=== PATIENT | male | born 1945 | race Caucasian/White ===

== ENCOUNTER → 2017-03-15 | Outpatient (CLI) | payer MEDICARE, BC ==
[2017-03-15 09:15] LABS: Basophils % (A) 1 %; CH 29.3; CHCM 34.1; Eosinophils # (A) 0.1 k/uL (0-0.7); Eosinophils % (A) 3 %; HCT 51.6 % (39.0-53.0); HDW 2.61; HGB 17.4 gm/dL (13.0-17.5); Luc % (Auto) 2; Lymphocytes # (A) 1.5 k/uL (1.0-4.8); Lymphocytes % (A) 33 %; MCH 29.1 pg (25.0-35.0); MCHC 33.8 g/dL (31.0-37.0); MCV 86.1 fL (80.0-100.0); Mean Platelet Volume 6.8; Monocytes # (A) 0.3 k/uL (0-1.0); Monocytes % (A) 7 %; Neutrophils # (A) 2.4 k/uL (1.3-7.7); Neutrophils % (A) 54 %; RBC 5.99 m/uL (4.30-5.90); RDW 12.6 % (11.5-15.5); WBC 4.5 k/uL (3.8-10.6)
[2017-03-15 09:40] LABS: ALT 37 U/L (21-72); AST 23 U/L (17-59); Alkaline Phosphatase 64 U/L (38-126); Anion Gap 9 mmol/L; Blood Urea Nitrogen 15 mg/dL (9-20); Calcium 9.4 mg/dL (8.4-10.2); Carbon Dioxide 27 mmol/L (22-30); Chloride 105 mmol/L (98-107); Cholesterol 293 mg/dL (<200); Glucose 113 mg/dL (74-99); HDL Cholesterol 72 mg/dL (40-60); Non-African American GFR(MDRD) >60 (>60 ml/min/1.73 sqM); Potassium 5.1 mmol/L (3.5-5.1); Sodium 141 mmol/L (137-145); Total Bilirubin 1.1 mg/dL (0.2-1.3); Total Protein 6.7 g/dL (6.3-8.2); Triglycerides 117 mg/dL (<150)
[2017-03-15 10:08] LABS: Prostate Specific Antigen 2.55 ng/mL (0.00-4.00)
[2017-03-15 10:56] LABS: Hemoglobin A1C 6.4 % (4.2-6.1)
== END | disposition home or self-care (01) ==
LOC: LABWHC1 08:56
PROVIDERS: ATTEND Physician Assistant Medical
DX: E11.65 Type 2 diabetes mellitus with hyperglycemia (principal); E78.5 Hyperlipidemia, unspecified; R53.81 Other malaise; R53.83 Other fatigue
CPT/HCPCS: 36415; 80053; 80061; 82043; 82570; 83036; 84153; 84443; 85025

== ENCOUNTER → 2017-08-03 | Outpatient (CLI) | payer MEDICARE, BC ==
[2017-08-03 09:39] LABS: Basophils % (A) 1 %; CH 29.2; CHCM 33.6; Eosinophils # (A) 0.1 k/uL (0-0.7); Eosinophils % (A) 3 %; HCT 51.6 % (39.0-53.0); HDW 2.64; HGB 16.8 gm/dL (13.0-17.5); Luc # (Auto) 0.11; Luc % (Auto) 3; Lymphocytes # (A) 1.2 k/uL (1.0-4.8); Lymphocytes % (A) 29 %; MCH 28.3 pg (25.0-35.0); MCHC 32.5 g/dL (31.0-37.0); MCV 87.2 fL (80.0-100.0); Mean Platelet Volume 6.6; Monocytes # (A) 0.3 k/uL (0-1.0); Monocytes % (A) 8 %; Neutrophils # (A) 2.5 k/uL (1.3-7.7); Neutrophils % (A) 58 %; RBC 5.91 m/uL (4.30-5.90); WBC 4.3 k/uL (3.8-10.6); WBC (Perox) 4.22
== END | disposition home or self-care (01) ==
LOC: LABWHC1 09:14
PROVIDERS: ATTEND Family Medicine
DX: E78.5 Hyperlipidemia, unspecified (principal); E11.9 Type 2 diabetes mellitus without complications; E03.9 Hypothyroidism, unspecified
CPT/HCPCS: 36415; 83036; 84439; 84443; 84481; 85025

== ENCOUNTER → 2018-03-17 | Outpatient (CLI) | payer MEDICARE ==
[2018-03-17 09:46] LABS: Basophils % (A) 0 %; Eosinophils # (A) 0.1 k/uL (0-0.7); Eosinophils % (A) 2 %; HCT 49.2 % (39.0-53.0); HGB 16.3 gm/dL (13.0-17.5); Lymphocytes # (A) 1.3 k/uL (1.0-4.8); Lymphocytes % (A) 32 %; MCH 28.1 pg (25.0-35.0); MCHC 33.2 g/dL (31.0-37.0); MCV 84.7 fL (80.0-100.0); Mean Platelet Volume 6.5; Monocytes # (A) 0.3 k/uL (0-1.0); Monocytes % (A) 8 %; Neutrophils # (A) 2.2 k/uL (1.3-7.7); Neutrophils % (A) 55 %; Platelet Count 177 k/uL (150-450); RBC 5.81 m/uL (4.30-5.90); RDW 12.6 % (11.5-15.5)
[2018-03-17 10:02] LABS: Anion Gap 9 mmol/L; Blood Urea Nitrogen 15 mg/dL (9-20); Carbon Dioxide 25 mmol/L (22-30); Chloride 108 mmol/L (98-107); Glucose 125 mg/dL (74-99); Potassium 4.7 mmol/L (3.5-5.1); Sodium 142 mmol/L (137-145)
[2018-03-17 10:03] LABS: ALT 28 U/L (21-72); AST 20 U/L (17-59); Alkaline Phosphatase 56 U/L (38-126); Calcium 9.3 mg/dL (8.4-10.2); Cholesterol 286 mg/dL (<200); HDL Cholesterol 68 mg/dL (40-60); LDL Cholesterol,Calculated 190 mg/dL (0-99); Total Bilirubin 0.8 mg/dL (0.2-1.3); Total Protein 6.4 g/dL (6.3-8.2); Triglycerides 138 mg/dL (<150)
[2018-03-17 10:34] LABS: Prostate Specific Antigen 2.57 ng/mL (0.00-4.00)
[2018-03-17 18:06] LABS: Hemoglobin A1C 6.6 % (4.0-6.0)
== END | disposition home or self-care (01) ==
LOC: LABWHC1 09:21
PROVIDERS: ATTEND Physician Assistant Medical
DX: Z00.00 Encounter for general adult medical examination without abnormal findings (principal); E11.9 Type 2 diabetes mellitus without complications; E78.2 Mixed hyperlipidemia
CPT/HCPCS: 36415; 80053; 80061; 82043; 82570; 83036; 84153; 84156; 84443; 85025

== ENCOUNTER → 2018-08-03 | Outpatient (CLI) | payer MEDICARE ==
[2018-08-03 11:24] LABS: Basophils % (A) 1 %; Eosinophils # (A) 0.1 k/uL (0-0.7); Eosinophils % (A) 2 %; HCT 51.2 % (39.0-53.0); Lymphocytes % (A) 23 %; MCH 28.7 pg (25.0-35.0); MCHC 33.2 g/dL (31.0-37.0); MCV 86.5 fL (80.0-100.0); Monocytes # (A) 0.3 k/uL (0-1.0); Monocytes % (A) 8 %; Neutrophils # (A) 2.8 k/uL (1.3-7.7); Neutrophils % (A) 65 %; Platelet Count 154 k/uL (150-450); RBC 5.92 m/uL (4.30-5.90); RDW 12.3 % (11.5-15.5); WBC 4.3 k/uL (3.8-10.6)
[2018-08-03 12:28] LABS: Chloride 103; Glucose 174; Potassium 5.4; Sodium 135
[2018-08-03 12:29] LABS: ALT 33; AST 29; Albumin 4.2; Alkaline Phosphatase 51; Anion Gap 8; Blood Urea Nitrogen 20; Calcium 9.2; Carbon Dioxide 24; Cholesterol 209; Globulin 2.8; Total Bilirubin 1.1
[2018-08-03 12:30] LABS: HDL Cholesterol 74; LDL Cholesterol,Calculated 112.8; T4, Free (Free Thyroxine) 0.85; Triglycerides 111
[2018-08-03 18:15] LABS: Hemoglobin A1C 6.6 % (4.0-6.0)
== END ==
LOC: LABWHC1 10:11
PROVIDERS: ATTEND Family Medicine
DX: E03.9 Hypothyroidism, unspecified (principal); E11.9 Type 2 diabetes mellitus without complications
CPT/HCPCS: 36415; 80053; 80061; 83036; 84439; 84443; 84481; 85025

== ENCOUNTER → 2019-03-18 | Outpatient (CLI) | payer MEDICARE ==
[2019-03-18 17:12] LABS: African American GFR (CKD) 102.7 (60.0-200.0); Albumin 4.1 g/dL (3.80-4.90); Albumin/Globulin Ratio 2.28 (1.60-3.17); BUN/Creat Ratio 22.5 Ratio (12.00-20.00); Globulin 1.8 g/dL (1.6-3.3); LDL Cholesterol,Calculated 109.8 mg/dL (0.0-131.0); Potassium 4.4 mmol/L (3.5-5.5); Total Bilirubin 0.9 mg/dL (0.3-1.2); Total Protein 5.9 g/dL (6.2-8.2); VLDL Calculation 19.2 mg/dL (5.00-40.00)
== END | disposition home or self-care (01) ==
LOC: LABWHC1 08:20
PROVIDERS: ATTEND Physician Assistant Medical
DX: E11.42 Type 2 diabetes mellitus with diabetic polyneuropathy (principal); E78.2 Mixed hyperlipidemia; Z12.5 Encounter for screening for malignant neoplasm of prostate
CPT/HCPCS: 36415; 80053; 80061; 83036; 84153; 84443; 86803

== ENCOUNTER → 2019-08-08 | Outpatient (CLI) | payer MEDICARE, BC ==
[2019-08-08 11:18] LABS: Basophils % (A) 1 %; Eosinophils # (A) 0.1 k/uL (0-0.7); Eosinophils % (A) 3 %; HCT 52.4 % (39.0-53.0); HGB 17.1 gm/dL (13.0-17.5); Lymphocytes # (A) 1.2 k/uL (1.0-4.8); Lymphocytes % (A) 26 %; MCH 28.5 pg (25.0-35.0); MCHC 32.6 g/dL (31.0-37.0); MCV 87.3 fL (80.0-100.0); Mean Platelet Volume 6.8; Monocytes # (A) 0.3 k/uL (0-1.0); Monocytes % (A) 7 %; Neutrophils # (A) 2.9 k/uL (1.3-7.7); Neutrophils % (A) 61 %; Platelet Count 167 k/uL (150-450); RDW 12.3 % (11.5-15.5); WBC 4.7 k/uL (3.8-10.6)
[2019-08-08 16:20] LABS: African American GFR (CKD) 97.2 (60.0-200.0); Albumin 4.4 g/dL (3.80-4.90); Albumin/Globulin Ratio 2.59 (1.60-3.17); Anion Gap 7.4 mmol/L (4.00-12.00); BUN/Creat Ratio 16.67 Ratio (12.00-20.00); Calcium 9.2 mg/dL (8.7-10.3); Carbon Dioxide 27.6 mmol/L (21.6-31.8); Chol/HDL Ratio 2.66; Globulin 1.7 g/dL (1.6-3.3); LDL Cholesterol,Calculated 114.6 mg/dL (0.0-131.0); Non-African American GFR(CKD) 83.8 (60.0-200.0); Potassium 4.7 mmol/L (3.5-5.5); Total Bilirubin 1.2 mg/dL (0.3-1.2); Total Protein 6.1 g/dL (6.2-8.2); VLDL Calculation 13.4 mg/dL (5.00-40.00)
[2019-08-08 16:23] LABS: Hemoglobin A1C 7.1 % (4.0-6.0)
[2019-08-08 16:32] LABS: T4, Free (Free Thyroxine) 0.9 ng/dL (0.80-1.80)
== END | disposition home or self-care (01) ==
LOC: LABWHC1 09:05
PROVIDERS: ATTEND Family Medicine
DX: E11.9 Type 2 diabetes mellitus without complications (principal); E03.9 Hypothyroidism, unspecified; Z12.5 Encounter for screening for malignant neoplasm of prostate
CPT/HCPCS: 36415; 80053; 80061; 83036; 84153; 84439; 84443; 84481; 85025

== ENCOUNTER → 2019-09-04 | Outpatient (CLI) | payer MEDICARE, BC ==
--- NOTE | 2019-09-04 11:01 | ECHOS ---
STRESS ECHOCARDIOGRAM DATE OF SERVICE: 09/04/2019 INDICATIONS: Dyspnea MEDICATIONS: Glipizide, statin. BASELINE HEART RATE: 78 BASELINE BLOOD PRESSURE: 123/67 MAXIMUM HEART RATE: 133 MAXIMUM BLOOD PRESSURE: 155/80 85% MPHR: 124 100% MPHR: 146 METS: 8.5 MAXIMUM STAGE REACHED: III TOTAL EXERCISE TIME: 7 minutes CLINICAL INFORMATION: Baseline rhythm sinus mechanism, rate 78, normal axis and intervals, normal electrocardiogram. Patient exercised on Abdiel protocol for 7 minutes reaching peak rate 133 beats per minute which is equal to 91% maximum predicted heart rate. Peak blood pressure 155/80 mmHg. Test was terminated secondary to fatigue. There was no chest pain. Electrocardiograph monitoring revealed occasional PVCs. There was no evidence of diagnostic ischemic ST deviation. Baseline echocardiogram revealed normal wall motion. At peak exercise, there was normal wall motion augmentation with no hypokinesis or dyskinesis. CONCLUSION: 1. Good exercise tolerance with normal electrocardiograph response to exercise. 2. Normal stress echocardiogram with no evidence of stress induced ischemia. MMODL / IJN: [id number] /
== END ==
LOC: RADNMMAIN 09:40
PROVIDERS: ATTEND Family Medicine
DX: R06.00 Dyspnea, unspecified (principal)
CPT/HCPCS: 93351

== ENCOUNTER → 2020-03-12 | Outpatient (CLI) | payer MEDICARE, BC ==
[2020-03-12 11:13] LABS: Basophils % (A) 0 %; Eosinophils # (A) 0.1 k/uL (0-0.7); Eosinophils % (A) 3 %; HCT 48.3 % (39.0-53.0); HGB 16.1 gm/dL (13.0-17.5); Lymphocytes # (A) 1.2 k/uL (1.0-4.8); Lymphocytes % (A) 28 %; MCH 29.1 pg (25.0-35.0); MCHC 33.3 g/dL (31.0-37.0); MCV 87.5 fL (80.0-100.0); Mean Platelet Volume 7.1; Monocytes # (A) 0.3 k/uL (0-1.0); Monocytes % (A) 7 %; Neutrophils # (A) 2.4 k/uL (1.3-7.7); Neutrophils % (A) 59 %; Platelet Count 143 k/uL (150-450); RBC 5.53 m/uL (4.30-5.90); RDW 12.9 % (11.5-15.5); WBC 4.1 k/uL (3.8-10.6)
[2020-03-12 18:28] LABS: African American GFR (CKD) 85.6 (60.0-200.0); Albumin 4.3 g/dL (3.80-4.90); Albumin/Globulin Ratio 2.26 (1.60-3.17); Anion Gap 3.8 mmol/L (4.00-12.00); Calcium 8.8 mg/dL (8.7-10.3); Carbon Dioxide 26.2 mmol/L (21.6-31.8); Chol/HDL Ratio 2.61; Globulin 1.9 g/dL (1.6-3.3); Non-African American GFR(CKD) 73.8 (60.0-200.0); Potassium 4.8 mmol/L (3.5-5.5); Total Protein 6.2 g/dL (6.2-8.2)
[2020-03-12 18:56] LABS: Hemoglobin A1C 7.2 % (4.0-6.0)
[2020-03-12 19:51] LABS: Creatinine,Urine Random 102.7 mg/dL
[2020-03-12 20:35] LABS: Total Protein,Urine Random 12.1 mg/dL (0.0-13.5)
== END | disposition home or self-care (01) ==
LOC: LABWHC1 09:17
PROVIDERS: ATTEND Physician Assistant Medical
DX: E78.2 Mixed hyperlipidemia (principal); E11.42 Type 2 diabetes mellitus with diabetic polyneuropathy; Z12.5 Encounter for screening for malignant neoplasm of prostate
CPT/HCPCS: 36415; 80053; 80061; 82570; 83036; 84153; 84156; 84443; 85025

== ENCOUNTER → 2020-08-06 | Outpatient (CLI) | payer MEDICARE, BC ==
[2020-08-06 16:05] LABS: Albumin 4.6 g/dL (3.80-4.90); Albumin/Globulin Ratio 2.3 (1.60-3.17); Anion Gap 7.5 mmol/L (4.00-12.00); Calcium 9.2 mg/dL (8.7-10.3); Carbon Dioxide 27.5 mmol/L (21.6-31.8); Chol/HDL Ratio 2.8; LDL Cholesterol,Calculated 105.4 mg/dL (0.0-131.0); Non-African American GFR(CKD) 73.3 (60.0-200.0); Potassium 5.1 mmol/L (3.5-5.5); Total Bilirubin 1.1 mg/dL (0.3-1.2); Total Protein 6.6 g/dL (6.2-8.2); VLDL Calculation 18.6 mg/dL (5.00-40.00)
== END | disposition home or self-care (01) ==
LOC: LABWHC1 09:16
PROVIDERS: ATTEND Family Medicine
DX: E78.5 Hyperlipidemia, unspecified (principal)
CPT/HCPCS: 36415; 80053; 80061; 84443

== ENCOUNTER → 2021-03-14 | Outpatient (CLI) | payer MEDICARE, BC ==
[2021-03-14 15:54] LABS: Basophils # (A) 0.02 X 10*3/uL (0.00-0.10); Basophils % (A) 0.4 %; Eosinophils % (A) 4.3 %; HGB 15.5 g/dL (13.0-17.0); Lymphocytes # (A) 1.16 X 10*3/uL (0.90-5.00); Lymphocytes % (A) 25.1 %; MCH 28.5 pg (27.0-32.0); MCV 86.6 fL (80.0-97.0); Mean Platelet Volume 9.8 fL (9.5-12.2); Monocytes % (A) 8.7 %; Neutrophils # (A) 2.83 X 10*3/uL (1.80-7.70); Neutrophils % (A) 61.3 %; Platelet Count 162 X 10*3/uL (140-440); RBC 5.43 X 10*6/uL (4.40-5.60); RDW 12.3 % (11.5-14.5); WBC 4.62 X 10*3/uL (4.50-10.00)
[2021-03-14 16:35] LABS: African American GFR (CKD) 101.3 (60.0-200.0); Albumin 4.4 g/dL (3.80-4.90); Albumin/Globulin Ratio 2.2 (1.60-3.17); Anion Gap 7.8 mmol/L (4.00-12.00); BUN/Creat Ratio 18.75 Ratio (12.00-20.00); Calcium 8.8 mg/dL (8.7-10.3); Carbon Dioxide 24.2 mmol/L (21.6-31.8); Chol/HDL Ratio 2.62; Non-African American GFR(CKD) 87.4 (60.0-200.0); Potassium 4.5 mmol/L (3.5-5.5); Total Bilirubin 1.3 mg/dL (0.2-1.2); Total Protein 6.4 g/dL (6.2-8.2)
[2021-03-14 19:03] LABS: Urine Creatinine 223.7 mg/dL
[2021-03-14 19:54] LABS: Hemoglobin A1C 7.8 % (4.0-6.0)
== END | disposition home or self-care (01) ==
LOC: LABWHC1 09:35
PROVIDERS: ATTEND Physician Assistant Medical
DX: Z00.00 Encounter for general adult medical examination without abnormal findings (principal); E78.2 Mixed hyperlipidemia; E11.42 Type 2 diabetes mellitus with diabetic polyneuropathy
CPT/HCPCS: 36415; 80053; 80061; 82043; 82570; 83036; 84156; 84443; 85025

== ENCOUNTER → 2021-08-05 | Outpatient (CLI) | payer MEDICARE, BC ==
[2021-08-05 13:04] LABS: Basophils # (A) 0.1 k/uL (0-0.2); Basophils % (A) 1 %; Eosinophils # (A) 0.1 k/uL (0-0.7); Eosinophils % (A) 2 %; HCT 52.6 % (39.0-53.0); HGB 17.5 gm/dL (13.0-17.5); Lymphocytes # (A) 1.2 k/uL (1.0-4.8); Lymphocytes % (A) 22 %; MCH 29.6 pg (25.0-35.0); MCHC 33.3 g/dL (31.0-37.0); MCV 88.9 fL (80.0-100.0); Mean Platelet Volume 7.6; Monocytes # (A) 0.3 k/uL (0-1.0); Monocytes % (A) 5 %; Neutrophils # (A) 3.5 k/uL (1.3-7.7); Neutrophils % (A) 68 %; Platelet Count 181 k/uL (150-450); RBC 5.92 m/uL (4.30-5.90); RDW 12.7 % (11.5-15.5); WBC 5.2 k/uL (3.8-10.6)
[2021-08-05 13:26] LABS: ALT 27 U/L (4-49); AST 33 U/L (17-59); African American GFR (CKD) >90 (>60 ml/min/1.73 sqM); Albumin 4.7 g/dL (3.5-5.0); Albumin/Globulin Ratio 1.6; Alkaline Phosphatase 72 U/L (38-126); Anion Gap 12 mmol/L; Blood Urea Nitrogen 21 mg/dL (9-20); Calcium 9.5 mg/dL (8.4-10.2); Carbon Dioxide 20 mmol/L (22-30); Chloride 105 mmol/L (98-107); Glucose 152 mg/dL (74-99); Non-African American GFR(CKD) 88 (>60 ml/min/1.73 sqM); Potassium 4.9 mmol/L (3.5-5.1); Sodium 137 mmol/L (137-145); Total Bilirubin 1.2 mg/dL (0.2-1.3); Total Protein 7.7 g/dL (6.3-8.2)
[2021-08-05 13:42] LABS: T4, Free (Free Thyroxine) 0.84 ng/dL (0.78-2.19)
[2021-08-05 20:18] LABS: Chol/HDL Ratio 2.72 Ratio; LDL Cholesterol,Calculated 118.4 mg/dL (0.0-131.0)
== END | disposition home or self-care (01) ==
LOC: LABWHC1 11:38
PROVIDERS: ATTEND Family Medicine
DX: Z12.5 Encounter for screening for malignant neoplasm of prostate (principal); E11.9 Type 2 diabetes mellitus without complications; E03.9 Hypothyroidism, unspecified
CPT/HCPCS: 36415; 80053; 80061; 83036; 84153; 84439; 84443; 84481; 85025

== ENCOUNTER → 2021-08-29 | Outpatient (CLI) | payer MEDICARE, BC ==
--- NOTE | 2021-08-29 10:43 | ECHOS ---
STRESS ECHOCARDIOGRAM INDICATION: Dyspnea. BASELINE HEART RATE: 86 BASELINE BLOOD PRESSURE: 123/58 MAXIMUM HEART RATE: 140 MAXIMUM BLOOD PRESSURE: 177/82 85% MPHR: 122 100% MPHR: 144 METS: 10.3 MAXIMUM STAGE REACHED: 3 TOTAL EXERCISE TIME: 9:01 RESULTS: Baseline EKG shows sinus rhythm, normal axis, normal intervals. Patient exercised on Abdiel protocol for a total of 9 minutes, achieving 10 METS, 97% of predicted maximal heart rate without chest pain or diagnostic ST-segment depression. His baseline echo shows normal left ventricular size, wall motion and systolic function. Postexercise, there is normal hyperdynamic response of all segments of myocardium noted. CONCLUSIONS: 1. Good exercise tolerance. 2. Negative stress test by EKG criteria. 3. Negative stress echo. MMFELISAL / IJN: [id number] /
== END | disposition home or self-care (01) ==
LOC: RADNMMAIN 08:59
PROVIDERS: ATTEND Family Medicine
DX: R06.00 Dyspnea, unspecified (principal)
CPT/HCPCS: 93351

== ENCOUNTER → 2022-03-06 | Outpatient (CLI) | payer MEDICARE, BC ==
[2022-03-06 14:24] LABS: Basophils # (A) 0.03 X 10*3/uL (0.00-0.10); Basophils % (A) 0.5 %; Eosinophils # (A) 0.19 X 10*3/uL (0.04-0.35); Eosinophils % (A) 3.4 %; HCT 48.5 % (39.6-50.0); HGB 15.6 g/dL (13.0-17.0); Immature Grans, Automated 0.4 %; Lymphocytes # (A) 1.43 X 10*3/uL (0.90-5.00); Lymphocytes % (A) 25.7 %; MCH 27.9 pg (27.0-32.0); MCHC 32.2 g/dL (32.0-37.0); MCV 86.6 fL (80.0-97.0); Mean Platelet Volume 9.7 fL (9.5-12.2); Monocytes # (A) 0.46 X 10*3/uL (0.20-1.00); Monocytes % (A) 8.3 %; NRBC Per 100 WBC 0 /100 WBCS (0.0-0.0); Neutrophils # (A) 3.44 X 10*3/uL (1.80-7.70); Neutrophils % (A) 61.7 %; Platelet Count 180 X 10*3/uL (140-440); RDW 12.6 % (11.5-14.5); WBC 5.57 X 10*3/uL (4.50-10.00)
[2022-03-06 14:43] LABS: ALT 21 U/L (10-49); AST 18 U/L (14-35); African American GFR (CKD) 95.7 (60.0-200.0); Albumin 4.3 g/dL (3.8-4.9); Albumin/Globulin Ratio 2.04 (1.60-3.17); Alkaline Phosphatase 87 U/L (41-126); BUN/Creat Ratio 13.54 Ratio (12.00-20.00); Blood Urea Nitrogen 12.2 mg/dL (9.0-27.0); Calcium 9.3 mg/dL (8.7-10.3); Chloride 104 mmol/L (96-109); Chol/HDL Ratio 2.93 Ratio; Globulin 2.1 g/dL (1.6-3.3); Glucose 128 mg/dL (70-110); LDL Cholesterol,Calculated 92.2 mg/dL (0.0-131.0); Non-African American GFR(CKD) 82.6 (60.0-200.0); Sodium 140 mmol/L (135-145); Total Protein 6.4 g/dL (6.2-8.2)
== END | disposition home or self-care (01) ==
LOC: LABWHC1 09:16
PROVIDERS: ATTEND Family Medicine
DX: E11.42 Type 2 diabetes mellitus with diabetic polyneuropathy (principal)
CPT/HCPCS: 36415; 80053; 80061; 83036; 85025

== ENCOUNTER → 2022-07-28 | Outpatient (CLI) | payer MEDICARE, BC ==
[2022-07-28 14:24] LABS: Basophils # (A) 0.02 X 10*3/uL (0.00-0.10); Basophils % (A) 0.2 %; Eosinophils # (A) 0 X 10*3/uL (0.04-0.35); Eosinophils % (A) 0 %; HCT 50.4 % (39.6-50.0); HGB 16.4 g/dL (13.0-17.0); Immature Grans, Automated 0.4 %; Lymphocytes # (A) 0.41 X 10*3/uL (0.90-5.00); Lymphocytes % (A) 3.3 %; MCH 28.3 pg (27.0-32.0); MCHC 32.5 g/dL (32.0-37.0); MCV 86.9 fL (80.0-97.0); Mean Platelet Volume 10.3 fL (9.5-12.2); Monocytes % (A) 3.2 %; NRBC Per 100 WBC 0 /100 WBCS (0.0-0.0); Neutrophils # (A) 11.67 X 10*3/uL (1.80-7.70); Neutrophils % (A) 92.9 %; Platelet Count 147 X 10*3/uL (140-440); RDW 12.5 % (11.5-14.5); WBC 12.55 X 10*3/uL (4.50-10.00)
[2022-07-28 15:23] LABS: ALT 60 U/L (10-49); AST 49 U/L (14-35); African American GFR (CKD) 74.7 (60.0-200.0); Albumin 4.3 g/dL (3.8-4.9); Albumin/Globulin Ratio 1.54 (1.60-3.17); Alkaline Phosphatase 90 U/L (41-126); BUN/Creat Ratio 19.73 Ratio (12.00-20.00); Blood Urea Nitrogen 21.7 mg/dL (9.0-27.0); Calcium 9.4 mg/dL (8.7-10.3); Carbon Dioxide 21.3 mmol/L (20.0-27.5); Chloride 102 mmol/L (96-109); Chol/HDL Ratio 1.87 Ratio; Globulin 2.8 g/dL (1.6-3.3); Glucose 133 mg/dL (70-110); LDL Cholesterol,Calculated 55.2 mg/dL (0.0-131.0); Non-African American GFR(CKD) 64.4 (60.0-200.0); Potassium 4.6 mmol/L (3.5-5.5); Sodium 137 mmol/L (135-145); Total Protein 7.1 g/dL (6.2-8.2)
== END | disposition home or self-care (01) ==
LOC: LABWHC1 09:29
PROVIDERS: ATTEND Family Medicine
DX: E11.42 Type 2 diabetes mellitus with diabetic polyneuropathy (principal)
CPT/HCPCS: 36415; 80053; 80061; 83036; 85025

== ENCOUNTER 2022-07-30 02:24 | Inpatient (IN) | payer MEDICARE, BC ==
[2022-07-30 02:52] LABS: Glucose,Whole Blood 388 mg/dL (70-110)
--- NOTE | 2022-07-30 02:55 | ED ---
Weakness HPI - General Chief complaint: Weakness Stated complaint: disoriented Time Seen by Provider: 07/30/22 02:45 Source: patient, RN notes reviewed, old records reviewed Mode of arrival: wheelchair Limitations: no limitations - History of Present Illness Initial comments: This is a 77-year-old male DF for evaluation. Patient resents today for evalu ation of weakness, not feeling well fatigued. Patient is also having body aches pains and tremors. No shortness of breath no fevers. Severe weakness MD Complaint: generalized weakness Location: generalized Severity: moderate Severity scale (1-10): 4 Consistency: constant Improves with: none Worsens with: none Context: recent illness, history of similar Associated Symptoms: chest pain, confusion, nausea/vomiting, shortness of breath - Related Data Home Medications Medication Instructions Recorded Confirmed Atorvastatin Calcium [Lipitor] 40 mg PO DIRECTED 07/30/22 07/30/22 glipiZIDE [Glucotrol] 5 mg PO AC-BID 07/30/22 07/30/22 Previous Rx's Medication Instructions Recorded Acetaminophen Tab [Tylenol] 650 mg PO Q6HR PRN tab 08/05/22 Ampicillin-Sulbactam [Unasyn] 3 gm IVPB Q6HR 42 Days #168 each 08/05/22 Artificial Tears-Hypromellose 1 drops BOTH EYES TID PRN ml 08/05/22 [Artificial Tear Drops] Aspirin 81 mg PO DAILY tab 08/05/22 Collagenase [Santyl Ointment] 1 applic TOPICAL HS each 08/05/22 Heparin Sodium,Porcine [Heparin 5,000 unit SQ Q12HR 30 Days #60 08/05/22 Sodium] each INSULIN ASPART (NovoLOG) [NovoLOG 0 unit SQ ACHS each 08/05/22 (formulary)] Isosorbide Mononitrate ER [Imdur] 30 mg PO DAILY tab 08/05/22 Metoprolol Succinate (ER) [Toprol 25 mg PO DAILY tab 08/05/22 XL] Allergies Allergy/AdvReac Type Severity Reaction Status Date / Time No Known Allergies Allergy Verified 07/30/22 07:12 Review of Systems ROS Statement: Those systems with pertinent positive or pertinent negative responses have been documented in the HPI. ROS Other: All systems not noted in ROS Statement are negative. Past Medical History Past Medical History: Diabetes Mellitus, Hyperlipidemia History of Any Multi-Drug Resistant Organisms: None Reported Past Surgical History: No Surgical Hx Reported Past Psychological History: No Psychological Hx Reported Smoking Status: Never smoker Past Alcohol Use History: None Reported Past Drug Use History: None Reported General Exam Limitations: no limitations General appearance: alert, in no apparent distress Head exam: Present: atraumatic, normocephalic, normal inspection Eye exam: Present: normal appearance, PERRL, EOMI. Absent: scleral icterus, conjunctival injection, periorbital swelling ENT exam: Present: normal exam, mucous membranes moist Neck exam: Present: normal inspection. Absent: tenderness, meningismus, lymphadenopathy Respiratory exam: Present: normal lung sounds bilaterally. Absent: respiratory distress, wheezes, rales, rhonchi, stridor Cardiovascular Exam: Present: normal rhythm, tachycardia, normal heart sounds. Absent: systolic murmur, diastolic murmur, rubs, gallop, clicks GI/Abdominal exam: Present: soft, normal bowel sounds. Absent: distended, tenderness, guarding, rebound, rigid Extremities exam: Present: normal inspection, full ROM, normal capillary refill. Absent: tenderness, pedal edema, joint swelling, calf tenderness Back exam: Present: normal inspection Neurological exam: Present: alert, oriented X3, CN II-XII intact Psychiatric exam: Present: normal affect, normal mood Skin exam: Present: warm, dry, intact, normal color. Absent: rash Course Vital Signs 07/30/22 07/30/22 07/30/22 02:37 02:57 04:00 Temperature 99.1 F Pulse Rate 116 H 110 H 98 Respiratory 18 18 18 Rate Blood Pressure 87/55 105/60 104/61 O2 Sat by Pulse 96 96 98 Oximetry 07/30/22 07/30/22 07/30/22 05:06 05:07 06:06 Temperature 98.7 F Pulse Rate 93 89 Respiratory 18 18 Rate Blood Pressure 96/55 101/59 O2 Sat by Pulse 97 98 Oximetry 07/30/22 07/30/22 07/30/22 07:14 08:00 09:00 Temperature Pulse Rate 84 87 86 Respiratory 15 15 16 Rate Blood Pressure 99/58 99/58 89/53 O2 Sat by Pulse 99 97 99 Oximetry 07/30/22 07/30/22 07/30/22 10:00 11:00 12:00 Temperature Pulse Rate 86 80 73 Respiratory 18 20 18 Rate Blood Pressure 102/61 99/56 100/59 O2 Sat by Pulse 98 100 99 Oximetry 07/30/22 07/30/22 12:39 13:00 Temperature Pulse Rate 74 74 Respiratory 18 20 Rate Blood Pressure 102/78 102/59 O2 Sat by Pulse 97 100 Oximetry - Reevaluation(s) Reevaluation #1: 07/30/22 Medical records reviewed Patient symptoms improved here in the ER Patient informed of results and questions answered Medical Decision Making - Medical Decision Making 77 male DF for evaluation of dehydration weakness and nondistended. Patient does have a non-ST elevated [place] here in the ER will be admitted for observation - Lab Data Result diagrams: 08/04/22 07:59 08/04/22 07:59 Lab Results 07/30/22 07/30/22 07/30/22 Range/Units 02:48 03:16 03:16 WBC 5.2 (3.8-10.6) k/uL RBC 5.05 (4.30-5.90) m/uL Hgb 14.8 (13.0-17.5) gm/dL Hct 43.3 (39.0-53.0) % MCV 85.7 (80.0-100.0) fL MCH 29.3 (25.0-35.0) pg MCHC 34.2 (31.0-37.0) g/dL RDW 12.2 (11.5-15.5) % Plt Count 78 L (150-450) k/uL MPV 8.9 Neutrophils % 92 % Lymphocytes % 3 % Monocytes % 4 % Eosinophils % 0 % Basophils % 0 % Neutrophils # 4.8 (1.3-7.7) k/uL Lymphocytes # 0.2 L (1.0-4.8) k/uL Monocytes # 0.2 (0-1.0) k/uL Eosinophils # 0.0 (0-0.7) k/uL Basophils # 0.0 (0-0.2) k/uL Manual Slide Review Performed PT 10.7 (9.0-12.0) sec INR 1.0 (<1.2) APTT 27.2 (22.0-30.0) sec Sodium (137-145) mmol/L Potassium (3.5-5.1) mmol/L Chloride (98-107) mmol/L Carbon Dioxide (22-30) mmol/L Anion Gap mmol/L BUN (9-20) mg/dL Creatinine (0.66-1.25) mg/dL Est GFR (CKD-EPI)AfAm (>60 ml/min/1.73 sqM) Est GFR (CKD-EPI)NonAf (>60 ml/min/1.73 sqM) Glucose (74-99) mg/dL POC Glucose (mg/dL) 388 H (70-110) mg/dL POC Glu Tool Distributor ID Billy Beltrán Plasma Lactic Acid Kosta (0.7-2.0) mmol/L Calcium (8.4-10.2) mg/dL Total Bilirubin (0.2-1.3) mg/dL AST (17-59) U/L ALT (4-49) U/L Alkaline Phosphatase (38-126) U/L Troponin I (0.000-0.034) ng/mL Total Protein (6.3-8.2) g/dL Albumin (3.5-5.0) g/dL 07/30/22 07/30/22 07/30/22 Range/Units 03:16 03:16 03:16 WBC (3.8-10.6) k/uL RBC (4.30-5.90) m/uL Hgb (13.0-17.5) gm/dL Hct (39.0-53.0) % MCV (80.0-100.0) fL MCH (25.0-35.0) pg MCHC (31.0-37.0) g/dL RDW (11.5-15.5) % Plt Count (150-450) k/uL MPV Neutrophils % % Lymphocytes % % Monocytes % % Eosinophils % % Basophils % % Neutrophils # (1.3-7.7) k/uL Lymphocytes # (1.0-4.8) k/uL Monocytes # (0-1.0) k/uL Eosinophils # (0-0.7) k/uL Basophils # (0-0.2) k/uL Manual Slide Review PT (9.0-12.0) sec INR (<1.2) APTT (22.0-30.0) sec Sodium 129 L (137-145) mmol/L Potassium 4.0 (3.5-5.1) mmol/L Chloride 100 (98-107) mmol/L Carbon Dioxide 19 L (22-30) mmol/L Anion Gap 10 mmol/L BUN 36 H (9-20) mg/dL Creatinine 1.61 H (0.66-1.25) mg/dL Est GFR (CKD-EPI)AfAm 47 (>60 ml/min/1.73 sqM) Est GFR (CKD-EPI)NonAf 41 (>60 ml/min/1.73 sqM) Glucose 434 H (74-99) mg/dL POC Glucose (mg/dL) (70-110) mg/dL POC Glu Tool Distributor ID Plasma Lactic Acid Kosta 1.9 (0.7-2.0) mmol/L Calcium 8.1 L (8.4-10.2) mg/dL Total Bilirubin 1.8 H (0.2-1.3) mg/dL AST 98 H (17-59) U/L ALT 91 H (4-49) U/L Alkaline Phosphatase 132 H (38-126) U/L Troponin I 1.990 H* (0.000-0.034) ng/mL Total Protein 5.6 L (6.3-8.2) g/dL Albumin 3.4 L (3.5-5.0) g/dL - EKG Data -: EKG Interpreted by Me (EKG is sinus tach 112 AR 169 QRS 100 mL 384) - Radiology Data Radiology results: report reviewed (Chest x-rays negative for acute disease), image reviewed Disposition Clinical Impression: Dehydration, Weakness, NSTEMI (non-ST elevated myocardial infarction) Disposition: ADMITTED IP TO THIS HOSP Condition: Fair Is patient prescribed a controlled substance at d/c from ED?: No Time of Disposition: 04:55
[2022-07-30] MEDS ORDERED: SODIUM CHLORIDE 0.9% 1,000 ML IV STA (03:09)
[2022-07-30 03:45] LABS: Basophils % (A) 0 %; Eosinophils % (A) 0 %; HCT 43.3 % (39.0-53.0); HGB 14.8 gm/dL (13.0-17.5); Lymphocytes # (A) 0.2 k/uL (1.0-4.8); Lymphocytes % (A) 3 %; MCH 29.3 pg (25.0-35.0); MCHC 34.2 g/dL (31.0-37.0); MCV 85.7 fL (80.0-100.0); Mean Platelet Volume 8.9; Monocytes # (A) 0.2 k/uL (0-1.0); Monocytes % (A) 4 %; Neutrophils # (A) 4.8 k/uL (1.3-7.7); Neutrophils % (A) 92 %; RBC 5.05 m/uL (4.30-5.90); RDW 12.2 % (11.5-15.5); WBC 5.2 k/uL (3.8-10.6)
[2022-07-30 03:53] LABS: Partial Thromboplastin Time 27.2 sec (22.0-30.0); Prothrombin Time 10.7 sec (9.0-12.0)
[2022-07-30 03:58] LABS: Albumin 3.4 g/dL (3.5-5.0); Calcium 8.1 mg/dL (8.4-10.2); Total Bilirubin 1.8 mg/dL (0.2-1.3); Total Protein 5.6 g/dL (6.3-8.2)
--- NOTE | 2022-07-30 03:58 | XR ---
EXAMINATION TYPE: XR chest 2V DATE OF EXAM: 07/30/2022 COMPARISON: NONE HISTORY: Weakness TECHNIQUE: 2 views FINDINGS: Heart is normal. The lungs are clear of consolidation. Normal heart failure. There is some coarsening of interstitial markings at the lung bases. No pleural effusion. Bony thorax is intact. IMPRESSION: Increased basilar interstitial lung markings. No pulmonary consolidation or heart failure .
[2022-07-30 04:38] LABS: Platelet Count 78 k/uL (150-450)
[2022-07-30] MEDS ORDERED: MORPHINE SULFATE 4 MG/ML SYRINGE IV PRN (04:53)
[2022-07-30] MEDS ORDERED: ONDANSETRON 4 MG/2 ML VIAL IVP PRN (04:53)
[2022-07-30] MEDS ORDERED: NALOXONE 0.4 MG/ML 1 ML VIAL IV PRN (04:53)
[2022-07-30 05:04] LABS: Glucose,Whole Blood 313 mg/dL (70-110)
[2022-07-30 05:18] LABS: Appearance,Urine Cloudy (Clear); Bacteria,Urine Occasional /hpf; Bilirubin,Urine Negative (Negative); Blood,Urine Moderate (Negative); Color,Urine Yellow; Glucose,Urine (UA) 4+ (Negative); Hyaline Casts,Urine 7 /lpf (0-2); Ketones,Urine Trace (Negative); Leukocyte Esterase,Urine Negative (Negative); Mucus,Urine Rare /hpf; Nitrite,Urine Negative (Negative); Protein,Urine 1+ (Negative); RBC,Urine 4 /hpf (0-5); Specific Gravity,Urine 1.014 (1.001-1.035); Squamous Epithelial Cell,Urine <1 /hpf (0-4); Urobilinogen,Urine <2.0 mg/dL (<2.0); WBC,Urine 2 /hpf (0-5)
[2022-07-30] MEDS ORDERED: SODIUM CHLORIDE 0.9% 1,000 ML IV ONE (05:34)
[2022-07-30] MEDS: SODIUM CHLORIDE 0.9% 1,000 ML IV SCH ×2 (07:26→18:53)
[2022-07-30] MEDS ORDERED: HEPARIN SODIUM,PORCINE/PF 5,000 UNIT/0.5 ML SYRINGE SQ SCH (10:30)
--- NOTE | 2022-07-30 11:10 | P.HPIM ---
History of Present Illness This is a pleasant 77 years old male with past medical history of diabetes mellitus and hyperlipidemia. His PCP is Dr. Lam Presents because of generalized body aches, patient went to shelve his car when he felt shakiness all over his body, he felt cold he went inside and had somehow drinks like to soup or tea, eventually he could not stand up because felt generally weak and had to crawl on-call for his daughter to come and pick him up and came to emergency room. Denies chest pain or dyspnea or coughing. No flulike symptoms like sneezing or sore throat. No abdominal pain or vomiting or diarrhea. He feels that his knees on both sides are stiff and then tried to bring them he feels tenderness and both thighs she is an you over the last 2 days. 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 He denies smoking alcohol or illicit drugs. His blood pressure is on the low side 89/53 (patient at baseline looks like blood pressure on the low side ranging between 87/55-105/60), however patient states usually his blood pressure 125/72, he is afebrile, heart rate is within the reference range. Labs showing unremarkable CBC except for low platelets of 78,000. INR is normal. Sodium low 129. Creatinine elevated at 1.6. Bilirubin and liver enzymes elevated at 1.8 bilirubin and AST 98 and ALT 91. Troponin is elevated at 1.9 2 Urine analysis only glucosuria. Sugar is elevated more than 300 Increased basilar interstitial lung markers. No pulmonary consolidation or heart failure EKG: Sinus tachycardia at [address]-T changes. Patient currently started on normal saline 75 mL/h Review of Systems Review of systems CONSTITUTIONAL: No fever, no malaise, no fatigue. HEENT: No recent visual problems or hearing problems. Denied any sore throat. CARDIOVASCULAR: No orthopnea, PND, no palpitations, no syncope. PULMONARY: No shortness of breath, no cough, no hemoptysis. GASTROINTESTINAL: No diarrhea, no nausea, no vomiting, no abdominal pain. Normoactive bowel sounds. NEUROLOGICAL: No headaches, no weakness, no numbness. HEMATOLOGICAL: Denies any bleeding or petechiae. GENITOURINARY: Denies any burning micturition, frequency, or urgency. MUSCULOSKELETAL/RHEUMATOLOGICAL: Denies any joint pain, swelling, or any muscle pain. ENDOCRINE: Denies any polyuria or polydipsia. Past Medical History Past Medical History: Diabetes Mellitus, Hyperlipidemia History of Any Multi-Drug Resistant Organisms: None Reported Past Surgical History: No Surgical Hx Reported Past Psychological History: No Psychological Hx Reported Smoking Status: Never smoker Past Alcohol Use History: None Reported Past Drug Use History: None Reported Medications and Allergies Home Medications Medication Instructions Recorded Confirmed Type Atorvastatin Calcium [Lipitor] 40 mg PO DIRECTED 07/30/22 07/30/22 History glipiZIDE [Glucotrol] 5 mg PO AC-BID 07/30/22 07/30/22 History Allergies Allergy/AdvReac Type Severity Reaction Status Date / Time No Known Allergies Allergy Verified 07/30/22 07:12 Physical Exam Vitals: Vital Signs Temp Pulse Resp BP Pulse Ox 07/30/22 09:00 86 16 89/53 99 07/30/22 08:00 87 15 99/58 97 07/30/22 07:14 84 15 99/58 99 07/30/22 06:06 89 18 101/59 98 07/30/22 05:07 98.7 F 07/30/22 05:06 93 18 96/55 97 07/30/22 04:00 98 18 104/61 98 07/30/22 02:57 110 H 18 105/60 96 07/30/22 02:37 99.1 F 116 H 18 87/55 96 Intake and Output 07/29/22 07/30/22 07/30/22 22:59 06:59 14:59 Other: Weight 87.09 kg GENERAL: The patient is alert and oriented x3, not in any acute distress. Well developed, well nourished. HEENT: Pupils are round and equally reacting to light. EOMI. No scleral icterus. No conjunctival pallor. Normocephalic, atraumatic. No pharyngeal erythema. No thyromegaly. CARDIOVASCULAR: S1 and S2 present. No murmurs, rubs, or gallops. PULMONARY: Chest is clear to auscultation, no wheezing or crackles. ABDOMEN: Soft, nontender, nondistended, normoactive bowel sounds. No palpable organomegaly. MUSCULOSKELETAL: No joint swelling or deformity. EXTREMITIES: No cyanosis, clubbing, or pedal edema. NEUROLOGICAL: Gross neurological examination did not reveal any focal deficits. SKIN: No rashes. no petechiae. Results CBC & Chem 7: 07/30/22 03:16 07/30/22 03:16 Labs: Abnormal Lab Results - Last 24 Hours (Table) 07/30/22 07/30/22 07/30/22 Range/Units 02:48 03:16 03:16 Plt Count 78 L (150-450) k/uL Lymphocytes # 0.2 L (1.0-4.8) k/uL Sodium 129 L (137-145) mmol/L Carbon Dioxide 19 L (22-30) mmol/L BUN 36 H (9-20) mg/dL Creatinine 1.61 H (0.66-1.25) mg/dL Glucose 434 H (74-99) mg/dL POC Glucose (mg/dL) 388 H (70-110) mg/dL Calcium 8.1 L (8.4-10.2) mg/dL Total Bilirubin 1.8 H (0.2-1.3) mg/dL AST 98 H (17-59) U/L ALT 91 H (4-49) U/L Alkaline Phosphatase 132 H (38-126) U/L Troponin I (0.000-0.034) ng/mL Total Protein 5.6 L (6.3-8.2) g/dL Albumin 3.4 L (3.5-5.0) g/dL Urine Protein (Negative) Urine Glucose (UA) (Negative) Urine Ketones (Negative) Urine Blood (Negative) Urine Bacteria (None) /hpf Hyaline Casts (0-2) /lpf Urine Mucus (None) /hpf 07/30/22 07/30/22 07/30/22 Range/Units 03:16 04:58 05:02 Plt Count (150-450) k/uL Lymphocytes # (1.0-4.8) k/uL Sodium (137-145) mmol/L Carbon Dioxide (22-30) mmol/L BUN (9-20) mg/dL Creatinine (0.66-1.25) mg/dL Glucose (74-99) mg/dL POC Glucose (mg/dL) 313 H (70-110) mg/dL Calcium (8.4-10.2) mg/dL Total Bilirubin (0.2-1.3) mg/dL AST (17-59) U/L ALT (4-49) U/L Alkaline Phosphatase (38-126) U/L Troponin I 1.990 H* (0.000-0.034) ng/mL Total Protein (6.3-8.2) g/dL Albumin (3.5-5.0) g/dL Urine Protein 1+ H (Negative) Urine Glucose (UA) 4+ H (Negative) Urine Ketones Trace H (Negative) Urine Blood Moderate H (Negative) Urine Bacteria Occasional H (None) /hpf Hyaline Casts 7 H (0-2) /lpf Urine Mucus Rare H (None) /hpf 07/30/22 Range/Units 05:53 Plt Count (150-450) k/uL Lymphocytes # (1.0-4.8) k/uL Sodium (137-145) mmol/L Carbon Dioxide (22-30) mmol/L BUN (9-20) mg/dL Creatinine (0.66-1.25) mg/dL Glucose (74-99) mg/dL POC Glucose (mg/dL) (70-110) mg/dL Calcium (8.4-10.2) mg/dL Total Bilirubin (0.2-1.3) mg/dL AST (17-59) U/L ALT (4-49) U/L Alkaline Phosphatase (38-126) U/L Troponin I 1.930 H* (0.000-0.034) ng/mL Total Protein (6.3-8.2) g/dL Albumin (3.5-5.0) g/dL Urine Protein (Negative) Urine Glucose (UA) (Negative) Urine Ketones (Negative) Urine Blood (Negative) Urine Bacteria (None) /hpf Hyaline Casts (0-2) /lpf Urine Mucus (None) /hpf Assessment and Plan Assessment: Elevated troponin could be secondary to kidney disease especially with no chest pain , rule out None STEMI Acute kidney injury hypertension Hypotension, could be secondary to dehydration. Rule out cardiac disease hyponatremia, Mostly hypovolemic Mild transaminitis with elevated bilirubin bilateral thigh tenderness Diabetes mellitus Hyperlipidemia Plan: Check echocardiogram Cardiology consult Check liver ultrasound and hepatitis panel. Monitor liver enzymes Check bladder scan Check leg ultrasound Continue with normal saline and check creatinine, if no improvement by tomorrow may consider nephrology consult Labs and medication were reviewed.. Continue same treatment. Continue with symptomatic treatment. Resume home medication. Monitor labs and vitals. DVT and GI prophylaxis. Further recommendations as per clinical course of the patient DVT prophylaxis: heparin GI Prophylaxis: Pepcid PT/OT: Pending Prognosis is guarded
[2022-07-30] MEDS ORDERED: HEPARIN SODIUM 1,000 UN/ML (10ML VL) IV ONE (11:30)
[2022-07-30] MEDS ORDERED: HEPARIN SODIUM 1,000 UN/ML (10ML VL) IV PRN (11:30)
[2022-07-30] MEDS ORDERED: HEPARIN SOD,PORK IN 0.45% NACL 25,000 UNIT in 0.45% NACL 1 250ML.BAG IV SCH (11:30)
[2022-07-30] MEDS: FAMOTIDINE 20 MG/2 ML VIAL IV SCH (12:38)
--- NOTE | 2022-07-30 12:38 | P.CRDCN ---
History of Present Illness History of present illness: HISTORY OF PRESENT ILLNESS: This is a 77 year old male with a past medical history significant for diabetes and hyperlipidemia. 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 We have been asked to see the patient in consultation for abnormal troponins. Patient examine d at the bedside. Patient states he was outside scrapping off his car when he began to shake everywhere and got very cold. He went inside and made some soup to warm up. He states afterwards he tried to stand up and his legs would not support him. He states he had to crawl up the stairs. He denies having any chest pain or pressure. Denies SOB. He states he is usually pretty active at baseline. * EKG reveals sinus mechanism with no signs of acute ischemia * Chest xray increased basilar interstitial lung markings. No pulmonary consolidation or heart failure. * Laboratory data: WBC 5.2. Hemoglobin 14.8. Platelet count 78. Sodium 129. Potassium 4.0. BUN 36. Creatinine 1.61. Troponin 1.990. 1.930. 1.550. * Current home cardiac medications include Lipitor 40 mg daily * No previous echocardiogram on file in EMR * Patient or when stress echocardiogram in August 2021 which was negative for ischemia REVIEW OF SYSTEMS: At the time of my exam: CONSTITUTIONAL: Denies fever or chills. HEENT: Denies blurred vision, vision changes, or eye pain. Denies hemoptysis CARDIOVASCULAR: Denies chest pain. Denies orthopnea. Denies PND. Denies palpitations RESPIRATORY: Denies shortness of breath. GASTROINTESTINAL: Denies abdominal pain. Denies nausea or vomiting. HEMATOLOGIC: Denies bleeding disorders. GENITOURINARY: Denies any blood in urine. SKIN: Denies pruitis. Denies rash. PHYSICAL EXAM: VITAL SIGNS: Reviewed. GENERAL: Well-developed in no acute distress. HEENT: Head is normocephalic. Pupils are equal, round. Sclerae anicteric. Mucous membranes of the mouth are moist. Neck supple. No JVD or thyromegaly LUNGS: Respirations even and unlabored. Lungs essentially clear to auscultation bilaterally. HEART: Regular rate and rhythm. S1 and S2 heard. ABDOMEN: Soft. Nondistended. Nontender. EXTREMITIES: Normal range of motion. No clubbing or cyanosis. Peripheral pulses intact. No lower extremity edema NEUROLOGIC: Awake and alert. Oriented x 3. ASSESSMENT: Bilateral lower extremity weakness Abnormal troponins, of unclear significance, no clear-cut evidence to suggest acute coronary syndrome Acute kidney injury Hyponatremia Thrombocytopenia Hyperlipidemia Diabetes Neuropathy PLAN: Obtain 2-D echo to assess cardiac structure and function Begin low intensity heparin Continue Lipitor Consult neurology for evaluation Check d-dimer Check Covid Further recommendations pending patient's course Nurse practitioner note has been reviewed by physician. Signing provider agrees with the documented findings, assessment, and plan of care. Past Medical History Past Medical History: Diabetes Mellitus, Hyperlipidemia History of Any Multi-Drug Resistant Organisms: None Reported Past Surgical History: No Surgical Hx Reported Past Psychological History: No Psychological Hx Reported Smoking Status: Never smoker Past Alcohol Use History: None Reported Past Drug Use History: None Reported Medications and Allergies Home Medications Medication Instructions Recorded Confirmed Type Atorvastatin Calcium [Lipitor] 40 mg PO DIRECTED 07/30/22 07/30/22 History glipiZIDE [Glucotrol] 5 mg PO AC-BID 07/30/22 07/30/22 History Allergies Allergy/AdvReac Type Severity Reaction Status Date / Time No Known Allergies Allergy Verified 07/30/22 07:12 Physical Exam Vitals: Vital Signs Temp Pulse Resp BP Pulse Ox 07/30/22 09:00 86 16 89/53 99 07/30/22 08:00 87 15 99/58 97 07/30/22 07:14 84 15 99/58 99 07/30/22 06:06 89 18 101/59 98 07/30/22 05:07 98.7 F 07/30/22 05:06 93 18 96/55 97 07/30/22 04:00 98 18 104/61 98 07/30/22 02:57 110 H 18 105/60 96 07/30/22 02:37 99.1 F 116 H 18 87/55 96 Intake and Output 07/29/22 07/30/22 07/30/22 22:59 06:59 14:59 Other: Weight 87.09 kg Results 07/30/22 03:16 07/30/22 03:16 Cardiac Enzymes 07/30/22 07/30/22 07/30/22 Range/Units 03:16 03:16 05:53 AST 98 H (17-59) U/L Troponin I 1.990 H* 1.930 H* (0.000-0.034) ng/mL 07/30/22 Range/Units 08:37 AST (17-59) U/L Troponin I 1.550 H* (0.000-0.034) ng/mL Coagulation 07/30/22 Range/Units 03:16 PT 10.7 (9.0-12.0) sec APTT 27.2 (22.0-30.0) sec CBC 07/30/22 Range/Units 03:16 WBC 5.2 (3.8-10.6) k/uL RBC 5.05 (4.30-5.90) m/uL Hgb 14.8 (13.0-17.5) gm/dL Hct 43.3 (39.0-53.0) % Plt Count 78 L (150-450) k/uL Comprehensive Metabolic Panel 07/30/22 Range/Units 03:16 Sodium 129 L (137-145) mmol/L Potassium 4.0 (3.5-5.1) mmol/L Chloride 100 (98-107) mmol/L Carbon Dioxide 19 L (22-30) mmol/L BUN 36 H (9-20) mg/dL Creatinine 1.61 H (0.66-1.25) mg/dL Glucose 434 H (74-99) mg/dL Calcium 8.1 L (8.4-10.2) mg/dL AST 98 H (17-59) U/L ALT 91 H (4-49) U/L Alkaline Phosphatase 132 H (38-126) U/L Total Protein 5.6 L (6.3-8.2) g/dL Albumin 3.4 L (3.5-5.0) g/dL Current Medications Generic Name Dose Route Start Last Admin Trade Name Freq PRN Reason Stop Dose Admin Famotidine 20 mg 07/30/22 11:00 Famotidine 20 Mg/2 Ml Vial IV Q24HR ALEXX Sodium Chloride 1,000 mls @ 75 mls/hr 07/30/22 05:00 07/30/22 07:26 Saline 0.9% IV 75 mls/hr .[id number] ALEXX Administration Morphine Sulfate 4 mg 07/30/22 04:53 Morphine Sulfate 4 Mg/Ml Syringe IV Q4HR PRN Severe Pain (Scale 7 to 10) Naloxone HCl 0.2 mg 07/30/22 04:53 Naloxone 0.4 Mg/Ml 1 Ml Vial IV Q2M PRN Opioid Reversal Ondansetron HCl 4 mg 07/30/22 04:53 Ondansetron 4 Mg/2 Ml Vial IVP Q8HR PRN Nausea And Vomiting Intake and Output 07/29/22 07/30/22 07/30/22 22:59 06:59 14:59 Other: Weight 87.09 kg 07/30/22 03:16 07/30/22 03:16
--- NOTE | 2022-07-30 12:41 | CA ---
Transthoracic Echo Report Name: Antelmo Keith Age: 77 Gender: M : 1945 Exam Date: 07/30/2022 11:12 Exam Location: [facility] Ht (in): 73 Wt (lb): 192 Ordering Physician: Duke Felix MD Attending/Referring Phys: [id number], [employer] Division Chair Luisa Arce, DAPHNE Procedure CPT: Indications: Rule out heart disease Cardiac Hx: Technical Quality: Fair Contrast 1: Total Dose (mL): Contrast 2: Total Dose (mL): MEASUREMENTS (Male / Female) Normal Values 2D ECHO LV Diastolic Diameter PLAX 4.4 cm 4.2 - 5.9 / 3.9 - 5.3 cm LV Systolic Diameter PLAX 2.7 cm IVS Diastolic Thickness 1.6 cm 0.6 - 1.0 / 0.6 - 0.9 cm LVPW Diastolic Thickness 1.5 cm 0.6 - 1.0 / 0.6 - 0.9 cm LV Relative Wall Thickness 0.7 RV Internal Dim ED PLAX 3.8 cm LA Systolic Diameter LX 3.8 cm 3.0 - 4.0 / 2.7 - 3.8 cm LA Volume 61.1 cm??? 18 - 58 / 22 - 52 cm??? M-MODE Aortic Root Diameter MM 3.8 cm MV E Point Septal Separation 0.8 cm AV Cusp Separation MM 2.1 cm DOPPLER AV Peak Velocity 124.3 cm/s AV Peak Gradient 6.2 mmHg AI Peak Velocity 264.8 cm/s AI Peak Gradient 28.0 mmHg AI Pressure Half Time 615.9 ms MV Area PHT 3.1 cm??? Mitral E Point Velocity 65.3 cm/s Mitral A Point Velocity 87.3 cm/s Mitral E to A Ratio 0.7 MV Deceleration Time 240.9 ms MV E' Velocity 5.4 cm/s Mitral E to MV E' Ratio 12.0 TR Peak Velocity 219.6 cm/s TR Peak Gradient 19.3 mmHg Right Ventricular Systolic Press 23.7 mmHg FINDINGS Left Ventricle Left ventricular ejection fraction is estimated at 55-60 %. Left ventricular cavity size normal. Moderate concentric left ventricular hypertrophy. Right Ventricle Moderate right ventricular dilatation. Right ventricular systolic pressure within normal limits. Right Atrium Normal right atrial size. Left Atrium Mildly increased left atrial volume. No evidence for an atrial septal defect. Mitral Valve Structurally normal mitral valve. mild mitral regurgitation. Aortic Valve Trileaflet aortic valve. No aortic valve stenosis. Mild aortic regurgitation Tricuspid Valve Structurally normal tricuspid valve. Mild tricuspid regurgitation. Pulmonic Valve Trace to mild pulmonic regurgitation. Pericardium Normal pericardium. No pericardial effusion. Aorta Mild aortic dilatation at the level of the sinuses of valsalva 38 mm CONCLUSIONS 1. Normal left ventricle size and systolic function 2. Mild mitral, aortic and tricuspid regurgitation. Previewed by: Dr. Cecille Cullen MD (Electronically Signed) Final Date: 30 July 2022 12:40
--- NOTE | 2022-07-30 12:56 | US ---
EXAMINATION TYPE: US liver DATE OF EXAM: 07/30/2022 COMPARISON: NONE CLINICAL HISTORY: 77-year-old male elevated liver enz and bilirubin. Elevated labs, no pain TECHNIQUE: Multiple sonographic images of the right upper quadrant are obtained. FINDINGS: EXAM MEASUREMENTS: Liver Length: 16.9 cm Gallbladder Wall: 0.2 cm CBD: 0.5 cm Right Kidney: 10.1 x 4.7 x 5.6 cm [employer]IST NOTES:bowel gas limits exam Pancreas: not seen due to gas Liver: intercostal imaging only. Overall homogeneous appearance. No focal lesion seen. Gallbladder: wnl Evidence for sonographic Carson's sign: no CBD: wnl Right Kidney: wnl IMPRESSION: Normal homogeneous ultrasound appearance to the liver. No gallstones or biliary ductal dilatation.
[2022-07-30 13:58] LABS: Basophils % (A) 0 %; Eosinophils % (A) 1 %; HCT 40.4 % (39.0-53.0); Lymphocytes # (A) 0.5 k/uL (1.0-4.8); Lymphocytes % (A) 9 %; MCH 29.8 pg (25.0-35.0); MCHC 34.6 g/dL (31.0-37.0); MCV 86.3 fL (80.0-100.0); Monocytes # (A) 0.4 k/uL (0-1.0); Monocytes % (A) 6 %; Neutrophils # (A) 4.6 k/uL (1.3-7.7); Neutrophils % (A) 81 %; RBC 4.68 m/uL (4.30-5.90); RDW 12.4 % (11.5-15.5); WBC 5.6 k/uL (3.8-10.6)
[2022-07-30 14:02] LABS: Platelet Count 60 k/uL (150-450)
[2022-07-30 14:12] LABS: INR 1.1 (<1.2); Partial Thromboplastin Time 90.6 sec (22.0-30.0); Prothrombin Time 11.9 sec (9.0-12.0)
--- NOTE | 2022-07-30 15:34 | US ---
EXAMINATION TYPE: US venous doppler duplex LE DATE OF EXAM: 07/30/2022 3:12 PM COMPARISON: NONE CLINICAL HISTORY: leg swelling. edema SIDE PERFORMED: bilateral TECHNIQUE: The lower extremity deep venous system is examined utilizing real time linear array sonog michael with graded compression, doppler sonography and color-flow sonography. VESSELS IMAGED: Common Femoral Vein Deep Femoral Vein Greater Saphenous Vein * Femoral Vein Popliteal Vein Small Saphenous Vein * Proximal Calf Veins (* superficial vessels) Right Leg: no evidence of DVT Left Leg: no evidence of DVT Grayscale, color doppler, spectral doppler imaging performed of the deep veins of the lower extremiti es. There is normal flow, compressibility, vascular waveforms. IMPRESSION: No evidence of deep vein thrombosis of the bilateral lower extremities.
[2022-07-30 17:09] LABS: Glucose,Whole Blood 97 mg/dL (70-110)
--- NOTE | 2022-07-30 17:19 | P.CNNES ---
History of Present Illness Consult date: 07/30/22 Requesting physician: Cecille Cullen Reason for Consult: bilateral leg weakness History of Present Illness: This is a 77-year-old gentleman with history of diabetes mellitus chronic peripheral neuropathy and hyperlipidemia because of weakness in the legs. Patient is accompanied by his son. According to the patient 2 days ago he was working in his yard long the leaf. Then he was on the roof for half hour and was kneeling down getting the leaf off. Then yesterday he stated that he was with was hospitalized in the hospital then when he got home he noticed that he was feeling cold and was shaken of arms without any LOC, urinary or bowel incontinence. He had hot Tea and soup then when he wanted to get up he had hard time getting up and felt his legs are weak so was crawling. He denied any urinary bowel incontinence, back pain, denies any new numbness tingling. Denies any focal weakness in the uppers, visual disturbance. He denies any similar episodes in the past. He said that yesterday he missed his diabetic medication since she was his . Currently he feels back to baseline and denies any we akness in the legs. Some of the workup during his hospital visit consisted of: Patient is afebrile. Platelet count is 78,000 and repeat and 60,000 otherwise CBC with differential is unremarkable Sodium is 129, creatinine is 1.61 with a BUN is 36, glucose 434, calcium is 8.1 AST and ALT is elevated of 98/91. Troponin is 1.99 repeated is 1.93 and the most recent one is 1.550. Serum lactic acid venous 1.9 [place] virus PCR was not detected. 2-D echo was reported as normal left ventricular size and systolic function. Mild mitral aortic and tricuspid regurgitation. Venous duplex of lowers is negative for DVT. Review of Systems Review of system: The 12 point system was reviewed and apparent positive and negative per HPI. Past Medical History Past Medical History: Diabetes Mellitus, Hyperlipidemia History of Any Multi-Drug Resistant Organisms: None Reported Past Surgical History: No Surgical Hx Reported Past Psychological History: No Psychological Hx Reported Smoking Status: Never smoker Past Alcohol Use History: None Reported Past Drug Use History: None Reported Medications and Allergies Home Medications Medication Instructions Recorded Confirmed Type Atorvastatin Calcium [Lipitor] 40 mg PO DIRECTED 07/30/22 07/30/22 History glipiZIDE [Glucotrol] 5 mg PO AC-BID 07/30/22 07/30/22 History Allergies Allergy/AdvReac Type Severity Reaction Status Date / Time No Known Allergies Allergy Verified 07/30/22 07:12 Physical Examination - Vital Signs Vital Signs: Vital Signs Temp Pulse Resp BP Pulse Ox 07/30/22 13:00 74 20 102/59 100 07/30/22 12:39 74 18 102/78 97 07/30/22 12:00 73 18 100/59 99 07/30/22 11:00 80 20 99/56 100 07/30/22 10:00 86 18 102/61 98 07/30/22 09:00 86 16 89/53 99 07/30/22 08:00 87 15 99/58 97 07/30/22 07:14 84 15 99/58 99 07/30/22 06:06 89 18 101/59 98 07/30/22 05:07 98.7 F 07/30/22 05:06 93 18 96/55 97 07/30/22 04:00 98 18 104/61 98 07/30/22 02:57 110 H 18 105/60 96 07/30/22 02:37 99.1 F 116 H 18 87/55 96 Intake and Output 07/30/22 07/30/22 07/30/22 06:59 14:59 22:59 Other: Weight 87.09 kg GENERAL: The patient is lying in bed and is not in acute distress. CHEST: The heart rate is regular rate rhythm. No murmurs to auscultation. LUNG: Clear to auscultation bilaterally no wheezing noted throughout. Not labored breathing. ABDOMEN/GI: Bowel sounds present in all 4 quadrants. No tenderness to palpation throughout. INTEGUMENTARY: Has erythema on the left toe, medial dorsum of distal left foot and warm to touch. NEUROLOGICAL: Higher mental function: The patient is awake, alert, oriented to self, place and time. Patient is following commands. No aphasia and no neglect. Cranial nerves: The pupils are round, equal and reactive to light and accommodation. Visual johnson are full to confrontation throughout. Extraocular movement is intact no nystagmus is noted. Facial sensation is normal to touch throughout. The facial strength is normal throughout. Hearing is normal bilaterally to hand rub. Tongue is midline and moved [id number] without any difficulty. No dysarthria is noted. Shoulder shrug is normal bilaterally. Motor: Gait is normal. The strength is 5 over 5 throughout. Normal tone and bulk. Cerebellum: Normal finger to nose bilaterally. Sensation: Sensation is normal to touch throughout. Reflexes (right/left): 2+ throughout except right ankle is 1+ while left is 0. Plantars are mute bilaterally. Results - Laboratory Findings CBC and BMP: 07/30/22 12:58 07/30/22 03:16 Abnormal Lab Findings: Abnormal Labs 07/30/22 07/30/22 07/30/22 02:48 03:16 03:16 Plt Count 78 L Lymphocytes # 0.2 L APTT D-Dimer Sodium 129 L Carbon Dioxide 19 L BUN 36 H Creatinine 1.61 H Glucose 434 H POC Glucose (mg/dL) 388 H Calcium 8.1 L Total Bilirubin 1.8 H AST 98 H ALT 91 H Alkaline Phosphatase 132 H Troponin I Total Protein 5.6 L Albumin 3.4 L Urine Protein Urine Glucose (UA) Urine Ketones Urine Blood Urine Bacteria Hyaline Casts Urine Mucus 07/30/22 07/30/22 07/30/22 03:16 04:58 05:02 Plt Count Lymphocytes # APTT D-Dimer Sodium Carbon Dioxide BUN Creatinine Glucose POC Glucose (mg/dL) 313 H Calcium Total Bilirubin AST ALT Alkaline Phosphatase Troponin I 1.990 H* Total Protein Albumin Urine Protein 1+ H Urine Glucose (UA) 4+ H Urine Ketones Trace H Urine Blood Moderate H Urine Bacteria Occasional H Hyaline Casts 7 H Urine Mucus Rare H 07/30/22 07/30/22 07/30/22 05:53 08:37 12:58 Plt Count Lymphocytes # APTT 90.6 H D-Dimer 3.76 H Sodium Carbon Dioxide BUN Creatinine Glucose POC Glucose (mg/dL) Calcium Total Bilirubin AST ALT Alkaline Phosphatase Troponin I 1.930 H* 1.550 H* Total Protein Albumin Urine Protein Urine Glucose (UA) Urine Ketones Urine Blood Urine Bacteria Hyaline Casts Urine Mucus 07/30/22 12:58 Plt Count 60 L Lymphocytes # 0.5 L APTT D-Dimer Sodium Carbon Dioxide BUN Creatinine Glucose POC Glucose (mg/dL) Calcium Total Bilirubin AST ALT Alkaline Phosphatase Troponin I Total Protein Albumin Urine Protein Urine Glucose (UA) Urine Ketones Urine Blood Urine Bacteria Hyaline Casts Urine Mucus Assessment and Plan Assessment: Transient Lower extremity weakness and possible jerks of extremities possibly due to metabolic derangement of uncontrolled diabetes elevated, liver function and kidney function and appears probably his jerks were myoclonic Erythema and warmth on the left large toe/foot: Rule out cellulitis. Chronic peripheral neuropathy Diabetes mellitus and recent HbA1c: 6.9 Acute kidney insufficiency Elevated liver function test Elevated troponin Plan: I ordered CT of the lumbar spine to rule out any significant spinal stenosis. Ordered CK level, aldolase TSH, vitamin B-12, folate, ESR, CRP. Continue neuro checks PT and OT are consulted cardiology team is consulted If the patient continues to have lower extremity weakness then I recommend EMG with nerve conduction as an outpatient and MRI L-spine. Will defer work-up/management of possible cellulitis of left foot to primary team. Once patient kidney improves recommend Lyrica 25mg 1-2 tab bid for his peripheral neuropathy management. We'll defer the rest of the medical management to primary team The plan is discussed with patient, his son who is at bedside and his nurse. Thank you for the consultation Time with Patient: Greater than 30
[2022-07-30] MEDS: INSULIN ASPART (NovoLOG) 100 UNIT/ML VIAL SQ SCH ×2 (18:48→20:07)
--- NOTE | 2022-07-30 19:12 | CT ---
EXAMINATION TYPE: CT lumbar spine wo con DATE OF EXAM: 07/30/2022 6:40 PM COMPARISON: None. HISTORY: Lumbar pain CT DLP: 937.3 mGycm Automated exposure control for dose reduction was used. Unenhanced CT of the lumbar spine was performed. Bone and soft tissue window settings are submitted as well as coronal and sagittal reconstructions. There are 5 lumbar-type vertebra. There is mild to moderate height loss greatest anteriorly involving the superior L1 vertebra. Slight diminished signal at this level is seen without linear lucency, pos sible underlying Schmorl node or less likely lucent bony lesion. Bridging anterior osteophytes T12-L1 level are noted. No posterior extension of compression fracture to the posterior wall. Slight grade 1 retrolisthesis L1 on L2, L2 on L3, and L3 on L4. Mild to moderate disc space narrowing L2-L3 level. Axial images show mild facet arthropathy T12-L1 and L1-L2 levels. Axial images at L2-L3 level show spondylolisthesis with mild to moderate facet arthropathy and ligame ntum flavum hypertrophy effacing posterolateral thecal sac. There is mild/moderate broad-based disc b ulge effacing the anterior thecal sac and axial image 33. Bilateral neural foramina are patent. Axial images at L3-L4 level show spondylolisthesis and mild facet arthropathy bilaterally. There is m ild to moderate broad disc bulge effacing the anterior thecal sac. There is mild/moderate bilateral n eural foraminal narrowing. Axial images at L4-L5 level show mild to moderate facet arthropathy bilaterally. There is mild/modera te broad disc bulge effacing the anterior thecal sac. There is [id number] bilateral neural fora janeen narrowing. Axial images at L5-S1 level show mild/moderate facet arthropathy bilaterally. Spinal canal is preserv ed. Bilateral neural foramina are patent. Moderate fat replaced atrophy of the pancreatic head and uncinate process is seen. IMPRESSION: Multilevel spondylolisthesis and degenerative changes in the lumbar spine as detailed abo ve. Mild to moderate compression type fracture L1 level is suspected subacute or chronic in age. Robinson elate clinically.
[2022-07-30 20:12] LABS: Glucose,Whole Blood 124 mg/dL (70-110)
[2022-07-31] MEDS: SODIUM CHLORIDE 0.9% 1,000 ML IV SCH ×4 (05:27→17:21)
[2022-07-31] MEDS: INSULIN ASPART (NovoLOG) 100 UNIT/ML VIAL SQ SCH ×4 (05:55→20:11)
[2022-07-31 05:56] LABS: Glucose,Whole Blood 84 mg/dL (70-110)
[2022-07-31 08:46] LABS: Basophils % (A) 0 %; Eosinophils % (A) 0 %; HCT 38.4 % (39.0-53.0); HGB 13.2 gm/dL (13.0-17.5); Lymphocytes # (A) 0.6 k/uL (1.0-4.8); Lymphocytes % (A) 13 %; MCH 29.5 pg (25.0-35.0); MCHC 34.5 g/dL (31.0-37.0); MCV 85.7 fL (80.0-100.0); Mean Platelet Volume 8.6; Monocytes # (A) 0.4 k/uL (0-1.0); Monocytes % (A) 8 %; Neutrophils # (A) 3.8 k/uL (1.3-7.7); Neutrophils % (A) 75 %; RBC 4.48 m/uL (4.30-5.90); RDW 12.4 % (11.5-15.5); WBC 5.1 k/uL (3.8-10.6)
[2022-07-31 08:53] LABS: INR 0.9 (<1.2); Partial Thromboplastin Time 44.1 sec (22.0-30.0); Prothrombin Time 10.1 sec (9.0-12.0)
[2022-07-31 08:56] LABS: Platelet Count 70 k/uL (150-450)
[2022-07-31] MEDS ORDERED: ARTIFICIAL TEARS-HYPROMELLOSE DROPS 15 ML BTL BOTH EYES PRN (08:57)
[2022-07-31] MEDS: FAMOTIDINE 20 MG/2 ML VIAL IV SCH (09:20)
[2022-07-31 09:23] LABS: ALT 62 U/L (4-49); AST 64 U/L (17-59); African American GFR (CKD) >90 (>60 ml/min/1.73 sqM); Albumin 2.7 g/dL (3.5-5.0); Alkaline Phosphatase 121 U/L (38-126); Anion Gap 6 mmol/L; Bilirubin, Delta 0.4 mg/dL (0.0-0.2); Bilirubin,Unconjugated 0.6 mg/dL (0.0-1.1); Blood Urea Nitrogen 15 mg/dL (9-20); Calcium 7.1 mg/dL (8.4-10.2); Carbon Dioxide 18 mmol/L (22-30); Chloride 115 mmol/L (98-107); Creatine Kinase 540 U/L (55-170); Glucose 95 mg/dL (74-99); Non-African American GFR(CKD) 88 (>60 ml/min/1.73 sqM); Phosphorus 1.6 mg/dL (2.5-4.5); Potassium 3.8 mmol/L (3.5-5.1); Sodium 139 mmol/L (137-145); Total Protein 4.8 g/dL (6.3-8.2)
[2022-07-31 10:05] LABS: C Reactive Protein 13.5 mg/dL (<1.0)
--- NOTE | 2022-07-31 10:15 | CT ---
EXAMINATION TYPE: CT angio chest DATE OF EXAM: 07/31/2022 10:01 AM COMPARISON: None HISTORY: Elevated Ddimer CT DLP: 426.6 mGycm Automated exposure control for dose reduction was used. CONTRAST: CTA scan of the thorax is performed with IV Contrast, patient injected with 72 mL of Isovue 370, pulm onary embolism protocol. . FINDINGS: LUNGS: There are small bilateral pleural effusions and subsegmental consolidation most compressive at electasis no pneumothorax. Tracheobronchial tree is patent. MEDIASTINUM: Artifact limits assessment of portions of the right pulmonary artery. Visualized portion s demonstrate no diagnostic evidence of filling defect to suggest pulmonary embolism. Left pulmonary arterial tree enhances normally.. There are no greater than 1 cm hilar or mediastinal lymph nodes. No pericardial effusion is seen. Coronary calcification OTHER: Hypertrophic and degenerative changes of the spine. There is a compression fracture at the th oracolumbar junction which appears chronic. Tracer gynecomastia. IMPRESSION: 1. Artifact limits assessment of portions of the right pulmonary artery with the visualized portions demonstrate no diagnostic evidence of pulmonary embolism. 2. Small bilateral pleural effusions and suspected basilar compressive atelectasis.
--- NOTE | 2022-07-31 11:18 | P.PN ---
Subjective Progress Note Date: 07/31/22 HISTORY OF PRESENT ILLNESS: This is a 77 year old male with a past medical history significant for diabetes and hyperlipidemia. Patient does not follow with a industrial engineering technician. We have been asked to see the patient in consultation for abnormal troponins. Patient examined at the bedside. Patient states he was outside scrapping off his car when he began to shake everywhere and got very cold. He went inside and made some soup to warm up. He states afterwards he tried to stand up and his legs would not support him. He states he had to crawl up the stairs. He denies having any chest pain or pressure. Denies SOB. He states he is usually pretty active at baseline. * EKG reveals sinus mechanism with no signs of acute ischemia * Chest xray increased basilar interstitial lung markings. No pulmonary consolidation or heart failure. * Laboratory data: WBC 5.2. Hemoglobin 14.8. Platelet count 78. Sodium 129. Potassium 4.0. BUN 36. Creatinine 1.61. Troponin 1.990. 1.930. 1.550. * Current home cardiac medications include Lipitor 40 mg daily * No previous echocardiogram on file in EMR * Patient or when stress echocardiogram in August 2021 which was negative for ischemia 07/31/2022 Patient examined this morning at the bedside. Patient denies chest pain or pressure. Denies SOB. Vital signs are stable. Patient was checked for Covid and found to be negative. D-dimer elevated at 3.76. Patient underwent chest CTA today which was negative for pulmonary and pleasant. Echocardiogram completed revealing ejection fraction 55-60%, mild MR, mild aortic regurgitation, mild TR. PHYSICAL EXAM: VITAL SIGNS: Reviewed. GENERAL: Well-developed in no acute distress. HEENT: Head is normocephalic. Pupils are equal, round. Sclerae anicteric. Mucous membranes of the mouth are moist. Neck supple. No JVD or thyromegaly LUNGS: Respirations even and unlabored. Lungs essentially clear to auscultation bilaterally. HEART: Regular rate and rhythm. S1 and S2 heard. ABDOMEN: Soft. Nondistended. Nontender. EXTREMITIES: Normal range of motion. No clubbing or cyanosis. Peripheral pulses intact. No lower extremity edema NEUROLOGIC: Awake and alert. Oriented x 3. ASSESSMENT: Bilateral lower extremity weakness Abnormal troponins, of unclear significance, no clear-cut evidence to suggest acute coronary syndrome Elevated d-dimer, chest CT negative for PE Acute kidney injury Hyponatremia Thrombocytopenia Hyperlipidemia Diabetes Neuropathy PLAN: Dr. Hughes spoke to patient and recommended cardiac cath secondary to abnormal troponins. Patient declining to have cath performed. He is willing to follow up outpatient and have a stress test performed at that time. Continue further workup per neurology and internal medicine Patient will be scheduled to see Dr. Hughes in the office post discharge Nurse practitioner note has been reviewed by physician. Signing provider agrees with the documented findings, assessment, and plan of care. Objective - Vital Signs Vital signs: Vital Signs Temp 99.6 F 07/31/22 08:00 Pulse 94 07/31/22 08:00 Resp 18 07/31/22 08:00 BP 112/56 07/31/22 08:00 Pulse Ox 95 07/31/22 08:00 FiO2 Intake & Output 07/30/22 07/31/22 07/31/22 18:59 06:59 18:59 Intake Total 180 Output Total 250 Balance 180 -250 Weight 80.3 kg Intake: Oral 180 Output: Urine 250 - Labs CBC & Chem 7: 07/31/22 08:08 07/31/22 08:08 Labs: Abnormal Lab Results - Last 24 Hours (Table) 07/30/22 07/30/22 07/30/22 Range/Units 08:37 12:58 12:58 Hct (39.0-53.0) % Plt Count 60 L (150-450) k/uL Lymphocytes # 0.5 L (1.0-4.8) k/uL APTT 90.6 H (22.0-30.0) sec D-Dimer 3.76 H (<0.60) mg/L FEU Chloride (98-107) mmol/L Carbon Dioxide (22-30) mmol/L POC Glucose (mg/dL) (70-110) mg/dL Calcium (8.4-10.2) mg/dL Phosphorus (2.5-4.5) mg/dL Delta Bilirubin (0.0-0.2) mg/dL AST (17-59) U/L ALT (4-49) U/L Creatine Kinase (55-170) U/L Troponin I 1.550 H* (0.000-0.034) ng/mL C-Reactive Protein (<1.0) mg/dL Total Protein (6.3-8.2) g/dL Albumin (3.5-5.0) g/dL 07/30/22 07/30/22 07/31/22 Range/Units 19:53 20:07 08:08 Hct (39.0-53.0) % Plt Count (150-450) k/uL Lymphocytes # (1.0-4.8) k/uL APTT 59.0 H (22.0-30.0) sec D-Dimer (<0.60) mg/L FEU Chloride 115 H (98-107) mmol/L Carbon Dioxide 18 L (22-30) mmol/L POC Glucose (mg/dL) 124 H (70-110) mg/dL Calcium 7.1 L (8.4-10.2) mg/dL Phosphorus 1.6 L (2.5-4.5) mg/dL Delta Bilirubin 0.4 H (0.0-0.2) mg/dL AST 64 H (17-59) U/L ALT 62 H (4-49) U/L Creatine Kinase 540 H (55-170) U/L Troponin I (0.000-0.034) ng/mL C-Reactive Protein 13.5 H (<1.0) mg/dL Total Protein 4.8 L (6.3-8.2) g/dL Albumin 2.7 L (3.5-5.0) g/dL 07/31/22 07/31/22 Range/Units 08:08 08:08 Hct 38.4 L (39.0-53.0) % Plt Count 70 L (150-450) k/uL Lymphocytes # 0.6 L (1.0-4.8) k/uL APTT 44.1 H (22.0-30.0) sec D-Dimer (<0.60) mg/L FEU Chloride (98-107) mmol/L Carbon Dioxide (22-30) mmol/L POC Glucose (mg/dL) (70-110) mg/dL Calcium (8.4-10.2) mg/dL Phosphorus (2.5-4.5) mg/dL Delta Bilirubin (0.0-0.2) mg/dL AST (17-59) U/L ALT (4-49) U/L Creatine Kinase (55-170) U/L Troponin I (0.000-0.034) ng/mL C-Reactive Protein (<1.0) mg/dL Total Protein (6.3-8.2) g/dL Albumin (3.5-5.0) g/dL
[2022-07-31 12:00] LABS: Glucose,Whole Blood 162 mg/dL (70-110)
--- NOTE | 2022-07-31 12:06 | P.CNOR ---
History of Present Illness - [facility] Consult date: 07/31/22 Requesting physician: Jaime Gray Consult reason: other (lumbar compression fracture) History of present illness: Patient is a 77-year-old male with a history of diabetes, hyperlipidemia, chronic peripheral neuropathy who presents to the emergency department at [facility] yesterday status post episode of bilateral weakness in his lower extremities. Patient was seen at bedside this morning sitting up at the edge of the bed. Patient says yesterday he was at home using a leaf blower to clean up leaves for about an hour and a half. Then, patient had to go up a ladder and clear his gutters out. Patient says that he was in a position that he normally is not in and then began to feel weakness in his legs. Patient states he decided coming the hospital at this point. Patient denies any previous episodes of weakness in his legs. Patient says he is not on any blood thinners. Patient denies any trauma/losing consciousness/falls. Orthopedics has been consulted for vertebral compression fracture at L1. Patient normally ambulates at home independently and does not use a walker or cane. Patient denies having any back pain at this time. Patient denies any previous or thopedic spine surgery. Patient says he does follow with a chiropractor on a regular basis. Patient denies chest pain, fever, shortness breath, nausea, vomiting, change in vision, loss of/bladder control. Past Medical History Past Medical History: Diabetes Mellitus, Hyperlipidemia History of Any Multi-Drug Resistant Organisms: None Reported Past Surgical History: No Surgical Hx Reported Past Psychological History: No Psychological Hx Reported Smoking Status: Never smoker Past Alcohol Use History: None Reported Past Drug Use History: None Reported Medications and Allergies Home Medications Medication Instructions Recorded Confirmed Type Atorvastatin Calcium [Lipitor] 40 mg PO DIRECTED 07/30/22 07/30/22 History glipiZIDE [Glucotrol] 5 mg PO AC-BID 07/30/22 07/30/22 History Allergies Allergy/AdvReac Type Severity Reaction Status Date / Time No Known Allergies Allergy Verified 07/30/22 07:12 Physical Examination Inspection: Negative for any open fractures, ecchymosis, significant erythema/ulcers. Positive for scoliosis in spine Sensation: Sensation is equal, symmetric, bilaterally intact throughout the upper and lower extremities Palpation: Nontender to palpation throughout bilateral upper and lower extremities and throughout spine exam Range of motion: Patient does have full range of motion bilateral upper and lower extremities on exam Motor: 5/5 in all major motor groups in the bilateral upper and lower extremities Special tests: Negative Homans bilaterally. Negative Joan bilaterally. Negative clonus bilaterally. Neurovascular: Radial pulse intact, 2+ bilaterally. Cap refill under 3 seconds in digits upper extremities. Results - Labs Labs: Abnormal Lab Results - Last 24 Hours (Table) 07/30/22 07/30/22 07/30/22 Range/Units 12:58 12:58 19:53 Hct (39.0-53.0) % Plt Count 60 L (150-450) k/uL Lymphocytes # 0.5 L (1.0-4.8) k/uL APTT 90.6 H 59.0 H (22.0-30.0) sec D-Dimer 3.76 H (<0.60) mg/L FEU Chloride (98-107) mmol/L Carbon Dioxide (22-30) mmol/L POC Glucose (mg/dL) (70-110) mg/dL Calcium (8.4-10.2) mg/dL Phosphorus (2.5-4.5) mg/dL Delta Bilirubin (0.0-0.2) mg/dL AST (17-59) U/L ALT (4-49) U/L Creatine Kinase (55-170) U/L C-Reactive Protein (<1.0) mg/dL Total Protein (6.3-8.2) g/dL Albumin (3.5-5.0) g/dL 07/30/22 07/31/22 07/31/22 Range/Units 20:07 08:08 08:08 Hct 38.4 L (39.0-53.0) % Plt Count 70 L (150-450) k/uL Lymphocytes # 0.6 L (1.0-4.8) k/uL APTT (22.0-30.0) sec D-Dimer (<0.60) mg/L FEU Chloride 115 H (98-107) mmol/L Carbon Dioxide 18 L (22-30) mmol/L POC Glucose (mg/dL) 124 H (70-110) mg/dL Calcium 7.1 L (8.4-10.2) mg/dL Phosphorus 1.6 L (2.5-4.5) mg/dL Delta Bilirubin 0.4 H (0.0-0.2) mg/dL AST 64 H (17-59) U/L ALT 62 H (4-49) U/L Creatine Kinase 540 H (55-170) U/L C-Reactive Protein 13.5 H (<1.0) mg/dL Total Protein 4.8 L (6.3-8.2) g/dL Albumin 2.7 L (3.5-5.0) g/dL 07/31/22 Range/Units 08:08 Hct (39.0-53.0) % Plt Count (150-450) k/uL Lymphocytes # (1.0-4.8) k/uL APTT 44.1 H (22.0-30.0) sec D-Dimer (<0.60) mg/L FEU Chloride (98-107) mmol/L Carbon Dioxide (22-30) mmol/L POC Glucose (mg/dL) (70-110) mg/dL Calcium (8.4-10.2) mg/dL Phosphorus (2.5-4.5) mg/dL Delta Bilirubin (0.0-0.2) mg/dL AST (17-59) U/L ALT (4-49) U/L Creatine Kinase (55-170) U/L C-Reactive Protein (<1.0) mg/dL Total Protein (6.3-8.2) g/dL Albumin (3.5-5.0) g/dL H & H 07/30/22 07/30/22 07/31/22 Range/Units 03:16 12:58 08:08 Hgb 14.8 14.0 13.2 (13.0-17.5) gm/dL Hct 43.3 40.4 38.4 L (39.0-53.0) % Coagulation 07/30/22 07/30/22 07/31/22 Range/Units 03:16 12:58 08:08 INR 1.0 1.1 0.9 (<1.2) Result Diagrams: 07/31/22 08:08 07/31/22 08:08 - Diagnostic results CT Scan - lumbar: report reviewed, image reviewed (L1 vertebral compression fracture appears to be chronic in nature. There is multilevel spondylolisthesis in the lumbar spine as well as degenerative disc disease.) Assessment and Plan Assessment: 1. L1 vertebral compression fracture 2. Multiple medical comorbidities Plan: 1. L1 vertebral compression fracture - patient stable at bedside this morning. On exam patient is NTTP throughout spine. CT of lumbar spine has been reviewed. L1 vertebral compression fracture appears to be chronic in nature. There is multilevel spondylolisthesis in the lumbar spine as well as degene rative disc disease. At this time we do not recommend any emergent/urgent orthopedic surgical intervention. Patient may benefit from a course of steroids. From an orthopedic standpoint, patient is stable for discharge home. Patient may follow-up with Dr. Sánchez office for further evaluation as needed. Orthopedics is signing off at this time. Please do not hesitate to contact us for any further questions. 2. Appreciate medical management 3. Pain management - morphine 4. GI prophylaxis - Pepcid 5. DVT prophylaxis - mechanical 6. PT/OT - weightbearing as tolerated with a walker as needed. 7. Appreciate consult Time with Patient: Less than 30
--- NOTE | 2022-07-31 12:40 | P.PN ---
Subjective Progress Note Date: 07/31/22 The patient is seen at bedside and denies any further weakness in lower extremities. Denies any falls. Denies any new neurological issues. Objective - Vital Signs Vital signs: Vital Signs Temp 98.1 F 07/31/22 12:00 Pulse 100 07/31/22 12:00 Resp 18 07/31/22 12:00 BP 119/59 07/31/22 12:00 Pulse Ox 93 L 07/31/22 12:00 FiO2 Intake & Output 07/30/22 07/31/22 07/31/22 18:59 06:59 18:59 Intake Total 180 Output Total 250 Balance 180 -250 Weight 80.3 kg Intake: Oral 180 Output: Urine 250 - Exam GENERAL: The patient is lying in bed and is not in acute distress. INTEGUMENTARY: Has erythema on the left toe, medial dorsum of distal left foot and warm to touch. NEUROLOGICAL: Higher mental function: The patient is awake, alert, oriented to self, place and time. Patient is following commands. No aphasia and no neglect. Cranial nerves: The pupils are round, equal and reactive to light and accommodation. Visual johnson are full to confrontation throughout. Extraocular movement is intact no nystagmus is noted. Facial sensation is normal to touch throughout. The facial strength is normal throughout. Hearing is normal bilaterally to hand rub. Tongue is midline and moved [id number] without any difficulty. No dysarthria is noted. Shoulder shrug is normal bilaterally. Motor: Gait is normal. The strength is 5 over 5 throughout. Normal tone and bulk. Cerebellum: Normal finger to nose bilaterally. Sensation: Sensation is normal to touch throughout. Reflexes (right/left): 2+ throughout except right ankle is 1+ while left is 0. Plantars are mute bilaterally. Some of the workup during his hospital visit consisted of: Patient is afebrile. Platelet count is 78,000 and repeat and 60,000 otherwise CBC with differential is unremarkable CK level is 540 which is mildly elevated TSH is 2.84 Sodium is 129, creatinine is 1.61 with a BUN is 36, glucose 434, calcium is 8.1 AST and ALT is elevated of 98/91. Troponin is 1.99 repeated is 1.93 and the most recent one is 1.550. Serum lactic acid venous 1.9 [place]cia virus PCR was not detected. 2-D echo was reported as normal left ventricular size and systolic function. Mild mitral aortic and tricuspid regurgitation. Venous duplex of lowers is negative for DVT. Lumbar spine is reported as multilevel spondylolisthesis and degenerative changes in the lumbar spine as detailed above. Mild to moderate compression fracture and L1 level suspected subacute or chronic in age. - Labs CBC & Chem 7: 07/31/22 08:08 07/31/22 08:08 Labs: Abnormal Lab Results - Last 24 Hours (Table) 07/30/22 07/30/22 07/30/22 Range/Units 12:58 12:58 19:53 Hct (39.0-53.0) % Plt Count 60 L (150-450) k/uL Lymphocytes # 0.5 L (1.0-4.8) k/uL APTT 90.6 H 59.0 H (22.0-30.0) sec D-Dimer 3.76 H (<0.60) mg/L FEU Chloride (98-107) mmol/L Carbon Dioxide (22-30) mmol/L POC Glucose (mg/dL) (70-110) mg/dL Calcium (8.4-10.2) mg/dL Phosphorus (2.5-4.5) mg/dL Delta Bilirubin (0.0-0.2) mg/dL AST (17-59) U/L ALT (4-49) U/L Creatine Kinase (55-170) U/L C-Reactive Protein (<1.0) mg/dL Total Protein (6.3-8.2) g/dL Albumin (3.5-5.0) g/dL 07/30/22 07/31/22 07/31/22 Range/Units 20:07 08:08 08:08 Hct 38.4 L (39.0-53.0) % Plt Count 70 L (150-450) k/uL Lymphocytes # 0.6 L (1.0-4.8) k/uL APTT (22.0-30.0) sec D-Dimer (<0.60) mg/L FEU Chloride 115 H (98-107) mmol/L Carbon Dioxide 18 L (22-30) mmol/L POC Glucose (mg/dL) 124 H (70-110) mg/dL Calcium 7.1 L (8.4-10.2) mg/dL Phosphorus 1.6 L (2.5-4.5) mg/dL Delta Bilirubin 0.4 H (0.0-0.2) mg/dL AST 64 H (17-59) U/L ALT 62 H (4-49) U/L Creatine Kinase 540 H (55-170) U/L C-Reactive Protein 13.5 H (<1.0) mg/dL Total Protein 4.8 L (6.3-8.2) g/dL Albumin 2.7 L (3.5-5.0) g/dL 07/31/22 07/31/22 Range/Units 08:08 11:58 Hct (39.0-53.0) % Plt Count (150-450) k/uL Lymphocytes # (1.0-4.8) k/uL APTT 44.1 H (22.0-30.0) sec D-Dimer (<0.60) mg/L FEU Chloride (98-107) mmol/L Carbon Dioxide (22-30) mmol/L POC Glucose (mg/dL) 162 H (70-110) mg/dL Calcium (8.4-10.2) mg/dL Phosphorus (2.5-4.5) mg/dL Delta Bilirubin (0.0-0.2) mg/dL AST (17-59) U/L ALT (4-49) U/L Creatine Kinase (55-170) U/L C-Reactive Protein (<1.0) mg/dL Total Protein (6.3-8.2) g/dL Albumin (3.5-5.0) g/dL Assessment and Plan Assessment: Transient Lower extremity weakness and possible jerks of extremities possibly due to metabolic derangement of uncontrolled diabetes elevated, liver function and kidney function and appears probably his jerks were myoclonic Suspected compression fracture L1 on CT Erythema and warmth on the left large toe/foot: Rule out cellulitis. Chronic peripheral neuropathy Diabetes mellitus and recent HbA1c: 6.9 Acute kidney insufficiency Elevated liver function test Elevated troponin Plan: Because of compression fracture in L1 that is supected, I consulted orthopedic surgery team. Patient has CK level 540 (mildly elevated), Pending aldolase vitamin B-12, folate, ESR, CRP. Continue neuro checks PT and OT are consulted cardiology team is consulted If the patient continues to have lower extremity weakness then I recommend EMG with nerve conduction as an outpatient and MRI L-spine. Will defer work-up/management of possible cellulitis of left foot to primary team. Once patient kidney improves recommend Lyrica 25mg 1-2 tab bid for his p eripheral neuropathy management. We'll defer the rest of the medical management to primary team The plan is discussed with patient and primary team. Time with Patient: Less than 30
[2022-07-31] MEDS ORDERED: AMPICILLIN-SULBACTAM 3 GM in SODIUM CHLORIDE 0.9% 100 ML IVPB SCH (16:00)
--- NOTE | 2022-07-31 16:12 | XR ---
EXAMINATION TYPE: XR foot complete LT DATE OF EXAM: 07/31/2022 CLINICAL HISTORY: pain TECHNIQUE: Frontal, lateral and oblique images of the left foot are obtained. COMPARISON: None. FINDINGS: There is extensive soft tissue edema overlying the left great toe with soft tissue ulcerati on noted. There is deformity about the head of the first proximal phalanx with underlying sclerosis a nd fragmentation highly suspicious for underlying osteomyelitis. Joint space narrowing and irregulari ty suggested. IMPRESSION: Tiny suggest osteomyelitis involving the head and neck of the proximal phalanx of the left great toe which can be confirmed with WBC scan or triple phase scintigraphy.
[2022-07-31 16:40] LABS: Glucose,Whole Blood 168 mg/dL (70-110)
[2022-07-31] MEDS: AMPICILLIN-SULBACTAM 3 GM in SODIUM CHLORIDE 0.9% 100 ML IVPB SCH ×2 (17:47→23:45)
--- NOTE | 2022-07-31 18:18 | P.GSCN ---
History of Present Illness History of present illness: 77-year-old diabetic male patient has a infected callus left big toe followed or smell consulted for debridement deep culture Medical history history of diabetes hyperlipidemia and patient also has a compression fracture of L1 care of orthopedic on examination Neck is supple no bruit appreciated Chest is clear good and both lungs CT scan showed no evidence of PE Abdomen soft nontender Vascular 1+ bilateral left big toe is swollen and there is infected callus on the plantar aspect with foul odor smell Plan is excision of infected callus and deep culture follow with you in by mouth midnight consent for left foot big toe debridement of the callus excision and deep culture Past Medical History Past Medical History: Diabetes Mellitus, Hyperlipidemia History of Any Multi-Drug Resistant Organisms: None Reported Past Surgical History: No Surgical Hx Reported Past Psychological History: No Psychological Hx Reported Smoking Status: Never smoker Past Alcohol Use History: None Reported Past Drug Use History: None Reported Medications and Allergies Home Medications Medication Instructions Recorded Confirmed Type Atorvastatin Calcium [Lipitor] 40 mg PO DIRECTED 07/30/22 07/30/22 History glipiZIDE [Glucotrol] 5 mg PO AC-BID 07/30/22 07/30/22 History Allergies Allergy/AdvReac Type Severity Reaction Status Date / Time No Known Allergies Allergy Verified 07/30/22 07:12 Surgical - Exam Vital Signs Temp Pulse Resp BP Pulse Ox 99.1 F 116 H 18 87/55 96 07/30/22 02:37 07/30/22 02:37 07/30/22 02:37 07/30/22 02:37 07/30/22 02:37 Results - Labs 07/31/22 08:08 07/31/22 08:08 Abnormal Lab Results - Last 24 Hours (Table) 07/30/22 07/30/22 07/31/22 Range/Units 19:53 20:07 08:08 Hct (39.0-53.0) % Plt Count (150-450) k/uL Lymphocytes # (1.0-4.8) k/uL ESR (0-20) mm/Hr APTT 59.0 H (22.0-30.0) sec Chloride (98-107) mmol/L Carbon Dioxide (22-30) mmol/L POC Glucose (mg/dL) 124 H (70-110) mg/dL Hemoglobin A1c 7.1 H (0.0-6.0) % Calcium (8.4-10.2) mg/dL Phosphorus (2.5-4.5) mg/dL Delta Bilirubin (0.0-0.2) mg/dL AST (17-59) U/L ALT (4-49) U/L Creatine Kinase (55-170) U/L C-Reactive Protein (<1.0) mg/dL Total Protein (6.3-8.2) g/dL Albumin (3.5-5.0) g/dL Procalcitonin (0.02-0.09) ng/mL 07/31/22 07/31/22 07/31/22 Range/Units 08:08 08:08 08:08 Hct 38.4 L (39.0-53.0) % Plt Count 70 L (150-450) k/uL Lymphocytes # 0.6 L (1.0-4.8) k/uL ESR 34 H (0-20) mm/Hr APTT (22.0-30.0) sec Chloride 115 H (98-107) mmol/L Carbon Dioxide 18 L (22-30) mmol/L POC Glucose (mg/dL) (70-110) mg/dL Hemoglobin A1c (0.0-6.0) % Calcium 7.1 L (8.4-10.2) mg/dL Phosphorus 1.6 L (2.5-4.5) mg/dL Delta Bilirubin 0.4 H (0.0-0.2) mg/dL AST 64 H (17-59) U/L ALT 62 H (4-49) U/L Creatine Kinase 540 H (55-170) U/L C-Reactive Protein 13.5 H (<1.0) mg/dL Total Protein 4.8 L (6.3-8.2) g/dL Albumin 2.7 L (3.5-5.0) g/dL Procalcitonin (0.02-0.09) ng/mL 07/31/22 07/31/22 07/31/22 Range/Units 08:08 08:08 11:58 Hct (39.0-53.0) % Plt Count (150-450) k/uL Lymphocytes # (1.0-4.8) k/uL ESR (0-20) mm/Hr APTT 44.1 H (22.0-30.0) sec Chloride (98-107) mmol/L Carbon Dioxide (22-30) mmol/L POC Glucose (mg/dL) 162 H (70-110) mg/dL Hemoglobin A1c (0.0-6.0) % Calcium (8.4-10.2) mg/dL Phosphorus (2.5-4.5) mg/dL Delta Bilirubin (0.0-0.2) mg/dL AST (17-59) U/L ALT (4-49) U/L Creatine Kinase (55-170) U/L C-Reactive Protein (<1.0) mg/dL Total Protein (6.3-8.2) g/dL Albumin (3.5-5.0) g/dL Procalcitonin 14.50 H (0.02-0.09) ng/mL 07/31/22 Range/Units 16:38 Hct (39.0-53.0) % Plt Count (150-450) k/uL Lymphocytes # (1.0-4.8) k/uL ESR (0-20) mm/Hr APTT (22.0-30.0) sec Chloride (98-107) mmol/L Carbon Dioxide (22-30) mmol/L POC Glucose (mg/dL) 168 H (70-110) mg/dL Hemoglobin A1c (0.0-6.0) % Calcium (8.4-10.2) mg/dL Phosphorus (2.5-4.5) mg/dL Delta Bilirubin (0.0-0.2) mg/dL AST (17-59) U/L ALT (4-49) U/L Creatine Kinase (55-170) U/L C-Reactive Protein (<1.0) mg/dL Total Protein (6.3-8.2) g/dL Albumin (3.5-5.0) g/dL Procalcitonin (0.02-0.09) ng/mL Diabetes panel 07/31/22 07/31/22 Range/Units 08:08 08:08 Sodium 139 (137-145) mmol/L Potassium 3.8 (3.5-5.1) mmol/L Chloride 115 H (98-107) mmol/L Carbon Dioxide 18 L (22-30) mmol/L BUN 15 (9-20) mg/dL Creatinine 0.76 (0.66-1.25) mg/dL Glucose 95 (74-99) mg/dL Hemoglobin A1c 7.1 H (0.0-6.0) % Calcium 7.1 L (8.4-10.2) mg/dL AST 64 H (17-59) U/L ALT 62 H (4-49) U/L Alkaline Phosphatase 121 (38-126) U/L Total Protein 4.8 L (6.3-8.2) g/dL Albumin 2.7 L (3.5-5.0) g/dL Thyroid panel 07/31/22 Range/Units 08:08 TSH 2.840 (0.465-4.680) mIU/L Calcium panel 07/31/22 Range/Units 08:08 Calcium 7.1 L (8.4-10.2) mg/dL Phosphorus 1.6 L (2.5-4.5) mg/dL Albumin 2.7 L (3.5-5.0) g/dL Pituitary panel 07/31/22 Range/Units 08:08 Sodium 139 (137-145) mmol/L Potassium 3.8 (3.5-5.1) mmol/L Chloride 115 H (98-107) mmol/L Carbon Dioxide 18 L (22-30) mmol/L BUN 15 (9-20) mg/dL Creatinine 0.76 (0.66-1.25) mg/dL Glucose 95 (74-99) mg/dL Calcium 7.1 L (8.4-10.2) mg/dL TSH 2.840 (0.465-4.680) mIU/L Adrenal panel 07/31/22 Range/Units 08:08 Sodium 139 (137-145) mmol/L Potassium 3.8 (3.5-5.1) mmol/L Chloride 115 H (98-107) mmol/L Carbon Dioxide 18 L (22-30) mmol/L BUN 15 (9-20) mg/dL Creatinine 0.76 (0.66-1.25) mg/dL Glucose 95 (74-99) mg/dL Calcium 7.1 L (8.4-10.2) mg/dL Total Bilirubin 1.0 (0.2-1.3) mg/dL AST 64 H (17-59) U/L ALT 62 H (4-49) U/L Alkaline Phosphatase 121 (38-126) U/L Total Protein 4.8 L (6.3-8.2) g/dL Albumin 2.7 L (3.5-5.0) g/dL
[2022-07-31 20:06] LABS: Glucose,Whole Blood 232 mg/dL (70-110)
--- NOTE | 2022-07-31 22:08 | P.CONS ---
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 and the patient has been complaining of increasing swelling and drainage from his left big toe with associated swelling redness of the left foot and leg area patient did have underlying diabetic neuropathy has denied significant pain to the left foot area patient on presentation to the hospital did have a low-grade fever of 99.1 F patient did have a normal white count sed rate is 34 creatinine has been normal levels of the mildly elevated urine has been negative patient did have negative influenza COVID and RSV PCR patient did have a chest x-ray increased bibasilar interstitial lung markings no consolidation CT angiogram of the chest artifact limits assessment of the portion of the right pulmonary artery small bilateral effusion liver ultrasound no gallstones or biliary ductal dilatation patient was started on Unasyn infectious was consulted for further management of antibiotic therapy for his left big toe diabetic foot infection, patient did have x-ray of the left foot completed concerning for possible osteomyelitis involving the distal phalanx Review of Systems Positive point has been mentioned in the HPI rest of the systems are negative Past Medical History Past Medical History: Diabetes Mellitus, Hyperlipidemia History of Any Multi-Drug Resistant Organisms: None Reported Past Surgical History: No Surgical Hx Reported Past Psychological History: No Psychological Hx Reported Smoking Status: Never smoker Past Alcohol Use History: None Reported Past Drug Use History: None Reported Medications and Allergies Home Medications Medication Instructions Recorded Confirmed Type Atorvastatin Calcium [Lipitor] 40 mg PO DIRECTED 07/30/22 07/30/22 History glipiZIDE [Glucotrol] 5 mg PO AC-BID 07/30/22 07/30/22 History Acetaminophen Tab [Tylenol] 650 mg PO Q6HR PRN tab 08/05/22 Rx Ampicillin-Sulbactam [Unasyn] 3 gm IVPB Q6HR 42 Days #168 each 08/05/22 Rx Artificial Tears-Hypromellose 1 drops BOTH EYES TID PRN ml 08/05/22 Rx [Artificial Tear Drops] Aspirin 81 mg PO DAILY tab 08/05/22 Rx Collagenase [Santyl Ointment] 1 applic TOPICAL HS each 08/05/22 Rx Heparin Sodium,Porcine [Heparin 5,000 unit SQ Q12HR 30 Days #60 08/05/22 Rx Sodium] each INSULIN ASPART (NovoLOG) [NovoLOG 0 unit SQ ACHS each 08/05/22 Rx (formulary)] Isosorbide Mononitrate ER [Imdur] 30 mg PO DAILY tab 08/05/22 Rx Metoprolol Succinate (ER) [Toprol 25 mg PO DAILY tab 08/05/22 Rx XL] Allergies Allergy/AdvReac Type Severity Reaction Status Date / Time No Known Allergies Allergy Verified 07/30/22 07:12 Physical Exam Vitals: Vital Signs Temp Pulse Resp BP Pulse Ox 07/31/22 12:00 98.1 F 100 18 119/59 93 L 07/31/22 08:00 99.6 F 94 18 112/56 95 07/31/22 03:19 98.7 F 104 H 18 100/55 98 07/30/22 23:07 97.7 F 91 18 104/61 97 07/30/22 19:30 98.2 F 86 18 105/64 97 Intake and Output 07/30/22 07/31/22 07/31/22 22:59 06:59 14:59 Intake Total 180 Output Total 250 Balance -70 Intake: Oral 180 Output: Urine 250 Other: # Voids 2 Weight 80.3 kg GENERAL DESCRIPTION: Elderly male lying in bed, no distress. No tachypnea or accessory muscle of respiration use. HEENT: Shows Pallor , no scleral icterus. Oral mucous membrane is dry. No pharyngeal erythema or thrush NECK: Trachea central, no thyromegaly. LUNGS: Unlabored breathing. Clear to auscultation anteriorly. No wheeze or crackle. HEART: S1, S2, regular rate and rhythm. No loud murmur ABDOMEN: Soft, no tenderness , guarding or rigidity, no organomegaly EXTREMITIES: Left big toe did have swelling redness of the wound on the plantar aspect and some drainage. SKIN: No rash, no masses palpable. NEUROLOGICAL: The patient is awake, alert, oriented x3, mood and affect normal. Results CBC & Chem 7: 08/04/22 07:59 08/04/22 07:59 Labs: Abnormal Lab Results - Last 24 Hours (Table) 07/30/22 07/30/22 07/31/22 Range/Units 19:53 20:07 08:08 Hct (39.0-53.0) % Plt Count (150-450) k/uL Lymphocytes # (1.0-4.8) k/uL APTT 59.0 H (22.0-30.0) sec Chloride (98-107) mmol/L Carbon Dioxide (22-30) mmol/L POC Glucose (mg/dL) 124 H (70-110) mg/dL Hemoglobin A1c 7.1 H (0.0-6.0) % Calcium (8.4-10.2) mg/dL Phosphorus (2.5-4.5) mg/dL Delta Bilirubin (0.0-0.2) mg/dL AST (17-59) U/L ALT (4-49) U/L Creatine Kinase (55-170) U/L C-Reactive Protein (<1.0) mg/dL Total Protein (6.3-8.2) g/dL Albumin (3.5-5.0) g/dL 07/31/22 07/31/22 07/31/22 Range/Units 08:08 08:08 08:08 Hct 38.4 L (39.0-53.0) % Plt Count 70 L (150-450) k/uL Lymphocytes # 0.6 L (1.0-4.8) k/uL APTT 44.1 H (22.0-30.0) sec Chloride 115 H (98-107) mmol/L Carbon Dioxide 18 L (22-30) mmol/L POC Glucose (mg/dL) (70-110) mg/dL Hemoglobin A1c (0.0-6.0) % Calcium 7.1 L (8.4-10.2) mg/dL Phosphorus 1.6 L (2.5-4.5) mg/dL Delta Bilirubin 0.4 H (0.0-0.2) mg/dL AST 64 H (17-59) U/L ALT 62 H (4-49) U/L Creatine Kinase 540 H (55-170) U/L C-Reactive Protein 13.5 H (<1.0) mg/dL Total Protein 4.8 L (6.3-8.2) g/dL Albumin 2.7 L (3.5-5.0) g/dL 07/31/22 Range/Units 11:58 Hct (39.0-53.0) % Plt Count (150-450) k/uL Lymphocytes # (1.0-4.8) k/uL APTT (22.0-30.0) sec Chloride (98-107) mmol/L Carbon Dioxide (22-30) mmol/L POC Glucose (mg/dL) 162 H (70-110) mg/dL Hemoglobin A1c (0.0-6.0) % Calcium (8.4-10.2) mg/dL Phosphorus (2.5-4.5) mg/dL Delta Bilirubin (0.0-0.2) mg/dL AST (17-59) U/L ALT (4-49) U/L Creatine Kinase (55-170) U/L C-Reactive Protein (<1.0) mg/dL Total Protein (6.3-8.2) g/dL Albumin (3.5-5.0) g/dL Assessment and Plan (1) Diabetic infection of left foot Status: Acute Code(s): E11.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 2vascular surgery evaluation for debridement of the infected callus and deep culture. 3increase the dose Unasyn to 3 g every 6 hours. We will follow on clinical condition and cultures to further adjust medication if needed Thank you for this consultation will follow this patient along with you Time with Patient: Greater than 30
--- NOTE | 2022-08-01 05:10 | P.PN ---
Subjective This is a pleasant 77 years old male with past medical history of diabetes mellitus and hyperlipidemia. His PCP is Dr. Lam Presents because of generalized body aches, patient went to shelve his car when he felt shakiness all over his body, he felt cold he went inside and had somehow drinks like to soup or tea, eventually he could not stand up because felt generally weak and had to crawl on-call for his daughter to come and pick him up and came to emergency room. Denies chest pain or dyspnea or coughing. No flulike symptoms like sneezing or sore throat. No abdominal pain or vomiting or diarrhea. He feels that his knees on both sides are stiff and then tried to bring them he feels tenderness and both thighs she is an you over the last 2 days. He has chronic neuropathy in his both feet and hands since 2004 and he is diabetic. He denies smoking alcohol or illicit drugs. His blood pressure is on the low side 89/53 (patient at baseline looks like blood pressure on the low side ranging between 87/55-105/60), however patient states usually his blood pressure 125/72, he is afebrile, heart rate is within the reference range. Labs showing unremarkable CBC except for low platelets of 78,000. INR is normal. Sodium low 129. Creatinine elevated at 1.6. Bilirubin and liver enzymes elevated at 1.8 bilirubin and AST 98 and ALT 91. Troponin is elevated at 1.9 2 Urine analysis only glucosuria. Sugar is elevated more than 300 Increased basilar interstitial lung markers. No pulmonary consolidation or heart failure EKG: Sinus tachycardia at [address]-T changes. Patient currently started on normal saline 75 mL/h 08/01/2022 Patient admitted because of bilateral leg weakness, and he has mildly elevated troponin on admission his been evaluated by consumer affairs director and neurologist. However today both legs weakness significantly improved and he denies any chest pain. Orthopedic team were consulted for vertebral fracture however this looks chronic Farm Loan Representative recommended cardiac cath, patient declines and wants to do stress test first room in the office. Patient left foot looks infected with cellulitis involving the first 2 toes and the peak to with prompt and forefoot area. We going to do x-ray and consult infectious disease and vascular surgery team Active Medications Generic Name Dose Route Start Last Admin Trade Name Freq PRN Reason Stop Dose Admin Artificial Tears 1 drops 07/31/22 08:57 07/31/22 12:16 Artificial Tears-Hypromellose Drops 15 Ml Btl BOTH EYES 1 drops TID PRN Administration Dry Eye(s) Collagenase 1 applic 08/01/22 06:00 Collagenase 250 Unit/Gm Ointment 30 Gm Tube TOPICAL DAILY [facility] Protocol Famotidine 20 mg 07/30/22 11:00 07/31/22 09:20 Famotidine 20 Mg/2 Ml Vial IV 20 mg Q24HR ALEXX Administration Sodium Chloride 1,000 mls @ 100 mls/hr 07/31/22 12:30 07/31/22 17:21 Saline 0.9% IV 100 mls/hr .Q10H ALEXX Administration Ampicillin Sodium/Sulbactam 100 mls @ 200 mls/hr 07/31/22 18:00 07/31/22 23:45 Sodium 3 gm/ Sodium Chloride IVPB 200 mls/hr Q6HR ALEXX Administration Protocol Insulin Aspart 0 unit 07/30/22 17:30 07/31/22 20:11 Insulin Aspart (Novolog) 100 Unit/Ml Vial SQ 4 unit ACHS ALEXX Administration Protocol Morphine Sulfate 4 mg 07/30/22 04:53 Morphine Sulfate 4 Mg/Ml Syringe IV Q4HR PRN Severe Pain (Scale 7 to 10) Naloxone HCl 0.2 mg 07/30/22 04:53 Naloxone 0.4 Mg/Ml 1 Ml Vial IV Q2M PRN Opioid Reversal Ondansetron HCl 4 mg 07/30/22 04:53 Ondansetron 4 Mg/2 Ml Vial IVP Q8HR PRN Nausea And Vomiting Objective - Vital Signs Vital signs: Vital Signs Temp 98.1 F 07/31/22 12:00 Pulse 100 07/31/22 12:00 Resp 18 07/31/22 12:00 BP 119/59 07/31/22 12:00 Pulse Ox 93 L 07/31/22 12:00 FiO2 Intake & Output 07/30/22 07/31/22 07/31/22 18:59 06:59 18:59 Intake Total 180 Output Total 250 Balance 180 -250 Weight 80.3 kg Intake: Oral 180 Output: Urine 250 - Exam GENERAL: The patient is alert and oriented x3, not in any acute distress. Well developed, well nourished. HEENT: Pupils are round and equally reacting to light. EOMI. No scleral icterus. No conjunctival pallor. Normocephalic, atraumatic. No pharyngeal erythema. No thyromegaly. CARDIOVASCULAR: S1 and S2 present. No murmurs, rubs, or gallops. PULMONARY: Chest is clear to auscultation, no wheezing or crackles. ABDOMEN: Soft, nontender, nondistended, normoactive bowel sounds. No palpable organomegaly. MUSCULOSKELETAL: No joint swelling or deformity. -EXTREMITIES: No cyanosis, clubbing, or pedal edema. Left foot big toe cellulitis and the surrounding forefoot area with warmth redness and tenderness and swelling NEUROLOGICAL: Gross neurological examination did not reveal any focal deficits. SKIN: No rashes. no petechiae. - Labs CBC & Chem 7: 07/31/22 08:08 07/31/22 08:08 Labs: Abnormal Lab Results - Last 24 Hours (Table) 07/30/22 07/30/22 07/30/22 Range/Units 12:58 12:58 19:53 Hct (39.0-53.0) % Plt Count 60 L (150-450) k/uL Lymphocytes # 0.5 L (1.0-4.8) k/uL APTT 90.6 H 59.0 H (22.0-30.0) sec D-Dimer 3.76 H (<0.60) mg/L FEU Chloride (98-107) mmol/L Carbon Dioxide (22-30) mmol/L POC Glucose (mg/dL) (70-110) mg/dL Calcium (8.4-10.2) mg/dL Phosphorus (2.5-4.5) mg/dL Delta Bilirubin (0.0-0.2) mg/dL AST (17-59) U/L ALT (4-49) U/L Creatine Kinase (55-170) U/L C-Reactive Protein (<1.0) mg/dL Total Protein (6.3-8.2) g/dL Albumin (3.5-5.0) g/dL 07/30/22 07/31/22 07/31/22 Range/Units 20:07 08:08 08:08 Hct 38.4 L (39.0-53.0) % Plt Count 70 L (150-450) k/uL Lymphocytes # 0.6 L (1.0-4.8) k/uL APTT (22.0-30.0) sec D-Dimer (<0.60) mg/L FEU Chloride 115 H (98-107) mmol/L Carbon Dioxide 18 L (22-30) mmol/L POC Glucose (mg/dL) 124 H (70-110) mg/dL Calcium 7.1 L (8.4-10.2) mg/dL Phosphorus 1.6 L (2.5-4.5) mg/dL Delta Bilirubin 0.4 H (0.0-0.2) mg/dL AST 64 H (17-59) U/L ALT 62 H (4-49) U/L Creatine Kinase 540 H (55-170) U/L C-Reactive Protein 13.5 H (<1.0) mg/dL Total Protein 4.8 L (6.3-8.2) g/dL Albumin 2.7 L (3.5-5.0) g/dL 07/31/22 07/31/22 Range/Units 08:08 11:58 Hct (39.0-53.0) % Plt Count (150-450) k/uL Lymphocytes # (1.0-4.8) k/uL APTT 44.1 H (22.0-30.0) sec D-Dimer (<0.60) mg/L FEU Chloride (98-107) mmol/L Carbon Dioxide (22-30) mmol/L POC Glucose (mg/dL) 162 H (70-110) mg/dL Calcium (8.4-10.2) mg/dL Phosphorus (2.5-4.5) mg/dL Delta Bilirubin (0.0-0.2) mg/dL AST (17-59) U/L ALT (4-49) U/L Creatine Kinase (55-170) U/L C-Reactive Protein (<1.0) mg/dL Total Protein (6.3-8.2) g/dL Albumin (3.5-5.0) g/dL Assessment and Plan Assessment: Left foot cellulitis Elevated troponin could be secondary to kidney disease especially with no chest pain , rule out None STEMI Acute kidney injury hypertension, however blood pressure was Hypotension on admission, could be secondary to dehydration and infection. hyponatremia, Mostly hypovolemic Mild transaminitis with elevated bilirubin bilateral thigh tenderness Diabetes mellitus Hyperlipidemia Plan: We'll do this with x-ray, consult infectious disease and vascular surgery team Continue with normal saline Cardiology consult recommended stress this is an outpatient after patient refused cardiac cath Neurologist and orthopedically were consulted for lower extremity weakness, or Progress Labs and medication were reviewed.. Continue same treatment. Continue with symptomatic treatment. Resume home medication. Monitor labs and vitals. DVT and GI prophylaxis. Further recommendations as per clinical course of the patient DVT prophylaxis: heparin GI Prophylaxis: Pepcid PT/OT: Pending Prognosis is guarded
[2022-08-01] MEDS: INSULIN ASPART (NovoLOG) 100 UNIT/ML VIAL SQ SCH ×4 (06:10→20:26)
[2022-08-01] MEDS: AMPICILLIN-SULBACTAM 3 GM in SODIUM CHLORIDE 0.9% 100 ML IVPB SCH ×4 (06:10→23:00)
[2022-08-01 06:11] LABS: Glucose,Whole Blood 104 mg/dL (70-110)
[2022-08-01] MEDS: FAMOTIDINE 20 MG/2 ML VIAL IV SCH (09:09)
[2022-08-01 09:20] LABS: African American GFR (CKD) >90 (>60 ml/min/1.73 sqM); Anion Gap 3 mmol/L; Blood Urea Nitrogen 13 mg/dL (9-20); Calcium 6.8 mg/dL (8.4-10.2); Carbon Dioxide 22 mmol/L (22-30); Chloride 114 mmol/L (98-107); Glucose 111 mg/dL (74-99); Non-African American GFR(CKD) 89 (>60 ml/min/1.73 sqM); Potassium 3.8 mmol/L (3.5-5.1); Sodium 139 mmol/L (137-145)
[2022-08-01] MEDS ORDERED: fentaNYL (PF) 50 MCG/ML 2 ML AMP ONE (10:58)
[2022-08-01] MEDS ORDERED: KETAMINE 10 MG/ML 20 ML VIAL ONE (10:58)
[2022-08-01] MEDS ORDERED: MIDAZOLAM 2 MG/2 ML VIAL ONE (10:58)
[2022-08-01] MEDS ORDERED: LACTATED RINGERS 1,000 ML IV ONE (11:01)
[2022-08-01] MEDS ORDERED: BUPIVACAINE (PF) 0.25% 30 ML VIAL SQ ONE ×2 (11:14)
--- NOTE | 2022-08-01 11:42 | P.PCN ---
Description of Procedure: Preoperative diagnosis infected callus left foot big toe plantar aspect Postoperative same measurement is 2.5 x 3 and a have by 0.5 cm Procedure excision of callous infected callus left foot big toe indices a local IV sedation left foot was prepped and draped applied sterile manner 1% lidocaine were infiltrated using knife we excised the callus down to separate his tissue and the fact the callus was sent for deep culture developed as tissue was excised with sharp knife bleeding points well controlled wound was irrigated irrigated with her peroxide and saline Santyl cream applied to the wound dressing applied patient are to the procedure well plan is change dressing daily with Santyl cream
[2022-08-01 12:17] LABS: Glucose,Whole Blood 104 mg/dL (70-110)
--- NOTE | 2022-08-01 15:07 | P.PN ---
Subjective Progress Note Date: 08/01/22 This is a 77 year old male with a past medical history significant for diabetes and hyperlipidemia. Patient does not follow with a first assistant. We have been asked to see the patient in consultation for abnormal troponins. Patient examined at the bedside. Patient states he was outside scrapping off his car when he began to shake everywhere and got very cold. He went inside and made some soup to warm up. He states afterwards he tried to stand up and his legs would not support him. He states he had to crawl up the stairs. He denies having any chest pain or pressure. Denies SOB. He states he is usually pretty active at baseline. EKG reveals sinus mechanism with no signs of acute ischemia. Troponin 1.990. 1.930. 1.550. Patient was checked for Covid and found to be negative. D-dimer elevated at 3.76. Patient underwent chest CTA today which was negative for pulmonary and pleasant. Echocardiogram completed revealing ejection fraction 55-60%, mild MR, mild aortic regurgitation, mild TR. Patient underwent a removal of an infected calluses of the left big toe today. He is seen postoperatively resting comfortably in bed in no signs of acute distress. He denies chest pain or increased shortness of breath. Patient is to undergo a stress test outpatient to evaluate elevated troponins of unknown etiology. Will start patient on aspirin, Lipitor, Imdur, and Toprol. Objective - Vital Signs Vital signs: Vital Signs Temp 98.8 F 08/01/22 11:29 Pulse 81 08/01/22 12:00 Resp 18 08/01/22 12:00 BP 108/61 08/01/22 12:00 Pulse Ox 95 08/01/22 12:00 FiO2 Intake & Output 07/31/22 08/01/22 08/01/22 18:59 06:59 18:59 Intake Total 200 1120 Output Total 725 176 Balance 200 -725 944 Weight 87.3 kg Intake: IV 1000 Oral 200 120 Output: Urine 725 175 Estimated Blood Loss 1 Other: # Voids 2 - Exam PHYSICAL EXAM: VITAL SIGNS: Reviewed. GENERAL: Well-developed in no acute distress. HEENT: Head is normocephalic. Pupils are equal, round. Sclerae anicteric. Mucous membranes of the mouth are moist. NECK: Supple. No JVD or thyromegaly RESPIRATORY: Respirations even and unlabored. Lungs diminished to auscultation bilaterally. CARDIO: Regular rate and rhythm. S1 and S2 heard. No murmur or gallops. EXTREMITIES: Normal range of motion. No clubbing or cyanosis. Peripheral pulses intact. Negative for bilateral lower extremity edema, left foot Miguel Angel wrapped NEURO: Orientated to person, time, mood is appropriate - Labs CBC & Chem 7: 07/31/22 08:08 08/01/22 08:13 Labs: Abnormal Lab Results - Last 24 Hours (Table) 07/31/22 07/31/22 07/31/22 Range/Units 08:08 08:08 16:38 ESR 34 H (0-20) mm/Hr Chloride (98-107) mmol/L Glucose (74-99) mg/dL POC Glucose (mg/dL) 168 H (70-110) mg/dL Calcium (8.4-10.2) mg/dL Procalcitonin 14.50 H (0.02-0.09) ng/mL 07/31/22 08/01/22 Range/Units 20:05 08:13 ESR (0-20) mm/Hr Chloride 114 H (98-107) mmol/L Glucose 111 H (74-99) mg/dL POC Glucose (mg/dL) 232 H (70-110) mg/dL Calcium 6.8 L (8.4-10.2) mg/dL Procalcitonin (0.02-0.09) ng/mL Assessment and Plan Assessment: Bilateral lower extremity weakness Abnormal troponins, of unclear significance, no clear-cut evidence to suggest acute coronary syndrome Elevated d-dimer, chest CT negative for PE Acute kidney injury Hyponatremia Thrombocytopenia Hyperlipidemia Diabetes Neuropathy Plan: Patient will undergo an outpatient stress test to evaluate elevated troponins of unknown etiology. Patient will be started on optimal medical management Start aspirin, Lipitor, Imdur, and Toprol Continue with telemetry monitoring Further recommendations based on clinical course The above impression and plan of care have been discussed and directed by the signing physician. Litzy Arrington, nurse practitioner, acting as scribe for signing physician.
[2022-08-01] MEDS: COLLAGENASE 250 UNIT/GM OINTMENT 30 GM TUBE TOPICAL SCH ×2 (16:11→16:59)
[2022-08-01 16:31] LABS: Glucose,Whole Blood 144 mg/dL (70-110)
[2022-08-01] MEDS: ISOSORBIDE MONONITRATE ER 30 MG TAB.ER.24H PO SCH (16:59)
[2022-08-01] MEDS: ATORVASTATIN 40 MG TAB PO SCH (16:59)
[2022-08-01 20:16] LABS: Glucose,Whole Blood 155 mg/dL (70-110)
[2022-08-01] MEDS: METOPROLOL SUCCINATE (ER) 25 MG TAB.ER.24H PO SCH (20:26)
[2022-08-01] MEDS: SODIUM CHLORIDE 0.9% 1,000 ML IV SCH ×2 (21:05→21:06)
[2022-08-01] MEDS: ACETAMINOPHEN TAB 325 MG TAB PO PRN (23:23)
--- NOTE | 2022-08-02 02:46 | PN ---
PROGRESS NOTE DATE OF SERVICE: 08/01/2022 SUBJECTIVE: This is a 77-year-old gentleman who was admitted with left foot cellulitis, also had multiple medical issues. No chest pain, no palpitations, no fever. The patient also has acute kidney injury. OBJECTIVE: VITAL SIGNS: Pulse is 94, blood pressure n, respirations 16. HEENT: Conjunctivae normal. NECK: No JVD. CARDIOVASCULAR: S1, S2. RESPIRATIONS: Few scattered rhonchi. ABDOMEN: Soft. NERVOUS SYSTEM: No focal deficits. LABORATORY DATA: Labs are reviewed. Platelets are 70. Other labs are reviewed. Troponin is 1.550. ASSESSMENT: 1. Left foot cellulitis. 2. Elevated troponin, possibly acute ipk-BP-xmihjng-elevation myocardial infarction. 3. Acute kidney injury. 4. Hypertension. 5. Thrombocytopenia. 6. Multiple medical issues. RECOMMENDATIONS: Recommended to continue current medications, symptomatic treatment. Continue antibiotics. We will repeat the labs tomorrow. Closely monitor. Overall prognosis guarded. Further recommendations to follow. MMODL / IJN: [id number] / ISABELLE
[2022-08-02] MEDS: AMPICILLIN-SULBACTAM 3 GM in SODIUM CHLORIDE 0.9% 100 ML IVPB SCH ×4 (05:50→23:28)
[2022-08-02 06:00] LABS: Glucose,Whole Blood 137 mg/dL (70-110)
[2022-08-02] MEDS: INSULIN ASPART (NovoLOG) 100 UNIT/ML VIAL SQ SCH ×4 (06:04→20:41)
[2022-08-02] MEDS: SODIUM CHLORIDE 0.9% 1,000 ML IV SCH ×2 (06:08→18:48)
[2022-08-02] MEDS: METOPROLOL SUCCINATE (ER) 25 MG TAB.ER.24H PO SCH ×2 (09:15→20:51)
[2022-08-02] MEDS: ISOSORBIDE MONONITRATE ER 30 MG TAB.ER.24H PO SCH (09:15)
[2022-08-02] MEDS: FAMOTIDINE 20 MG/2 ML VIAL IV SCH (09:15)
[2022-08-02] MEDS: ASPIRIN 81 MG PO SCH (09:15)
[2022-08-02] MEDS: ATORVASTATIN 40 MG TAB PO SCH (09:15)
--- NOTE | 2022-08-02 11:02 | PN ---
PROGRESS NOTE SUBJECTIVE: This patient came with infected callus, left foot plantar aspect of the big toe with some cellulitis noted on the dorsal aspect of the foot. The patient had an excision of the callus, which was sent for deep culture. The patient is on IV antibiotic under care of Infectious Disease. Today we have changed the dressing. We used Santyl cream which will be continued. Culture is pending. Continue with Santyl cream daily. MMODL / IJN: [id number] /
[2022-08-02 12:16] LABS: Glucose,Whole Blood 169 mg/dL (70-110)
[2022-08-02 12:25] LABS: Basophils % (A) 0 %; Eosinophils % (A) 1 %; HCT 34.8 % (39.0-53.0); HGB 12.1 gm/dL (13.0-17.5); Lymphocytes # (A) 0.5 k/uL (1.0-4.8); Lymphocytes % (A) 8 %; MCH 29.8 pg (25.0-35.0); MCHC 34.6 g/dL (31.0-37.0); MCV 86.1 fL (80.0-100.0); Mean Platelet Volume 8.7; Monocytes # (A) 0.5 k/uL (0-1.0); Monocytes % (A) 7 %; Neutrophils # (A) 5.1 k/uL (1.3-7.7); Neutrophils % (A) 82 %; RBC 4.05 m/uL (4.30-5.90); RDW 12.5 % (11.5-15.5); WBC 6.3 k/uL (3.8-10.6)
[2022-08-02 12:32] LABS: Platelet Count 99 k/uL (150-450)
[2022-08-02 12:39] LABS: ALT 68 U/L (4-49); AST 65 U/L (17-59); African American GFR (CKD) >90 (>60 ml/min/1.73 sqM); Albumin 2.3 g/dL (3.5-5.0); Alkaline Phosphatase 182 U/L (38-126); Anion Gap 1 mmol/L; Blood Urea Nitrogen 18 mg/dL (9-20); Calcium 6.9 mg/dL (8.4-10.2); Carbon Dioxide 25 mmol/L (22-30); Chloride 112 mmol/L (98-107); Glucose 167 mg/dL (74-99); Non-African American GFR(CKD) >90 (>60 ml/min/1.73 sqM); Potassium 3.9 mmol/L (3.5-5.1); Sodium 138 mmol/L (137-145); Total Bilirubin 1.4 mg/dL (0.2-1.3); Total Protein 4.1 g/dL (6.3-8.2)
--- NOTE | 2022-08-02 12:49 | P.PN ---
Subjective Progress Note Date: 08/02/22 This is a 77 year old male with a past medical history significant for diabetes and hyperlipidemia. 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 We have been asked to see the patient in consultation for abnormal troponins. Patient examined at the bedside. Patient states he was outside scrapping off his car when he began to shake everywhere and got very cold. He went inside and made some soup to warm up. He states afterwards he tried to stand up and his legs would not support him. He states he had to crawl up the stairs. He denies having any chest pain or pressure. Denies SOB. He states he is usually pretty active at baseline. EKG reveals sinus mechanism with no signs of acute ischemia. Troponin 1.990. 1.930. 1.550. Patient was checked for Covid and found to be negative. D-dimer elevated at 3.76. Patient underwent chest CTA today which was negative for pulmonary and pleasant. Echocardiogram completed revealing ejection fraction 55-60%, mild MR, mild aortic regurgitation, mild TR. Patient is seen today doing well resting in bed comfortably without any signs of distress. He denies chest pain or increased shortness of breath. Patient continues on aspirin, Lipitor, Imdur, Toprol. Objective - Vital Signs Vital signs: Vital Signs Temp 98.9 F 08/02/22 08:00 Pulse 92 08/02/22 08:00 Resp 18 08/02/22 08:00 BP 97/51 08/02/22 08:00 Pulse Ox 91 L 08/02/22 08:00 FiO2 Intake & Output 08/01/22 08/02/22 08/02/22 18:59 06:59 18:59 Intake Total 1120 Output Total 626 200 Balance 494 -200 Weight 87.7 kg Intake: IV 1000 Oral 120 Output: Urine 625 200 Estimated Blood Loss 1 Other: # Voids 1 - Exam PHYSICAL EXAM: VITAL SIGNS: Reviewed. GENERAL: Well-developed in no acute distress. HEENT: Head is normocephalic. Pupils are equal, round. Sclerae anicteric. Mucous membranes of the mouth are moist. NECK: Supple. No JVD or thyromegaly RESPIRATORY: Respirations even and unlabored. Lungs diminished to auscultation bilaterally. CARDIO: Regular rate and rhythm. S1 and S2 heard. No murmur or gallops. EXTREMITIES: Normal range of motion. No clubbing or cyanosis. Peripheral pulses intact. Negative for bilateral lower extremity edema, left foot Miguel Angel wrapped NEURO: Orientated to person, time, mood is appropriate - Labs CBC & Chem 7: 08/02/22 11:51 08/02/22 11:51 Labs: Abnormal Lab Results - Last 24 Hours (Table) 08/01/22 08/01/22 08/02/22 Range/Units 16:29 20:15 06:00 RBC (4.30-5.90) m/uL Hgb (13.0-17.5) gm/dL Hct (39.0-53.0) % Plt Count (150-450) k/uL Lymphocytes # (1.0-4.8) k/uL Chloride (98-107) mmol/L Glucose (74-99) mg/dL POC Glucose (mg/dL) 144 H 155 H 137 H (70-110) mg/dL Calcium (8.4-10.2) mg/dL Total Bilirubin (0.2-1.3) mg/dL AST (17-59) U/L ALT (4-49) U/L Alkaline Phosphatase (38-126) U/L Total Protein (6.3-8.2) g/dL Albumin (3.5-5.0) g/dL 08/02/22 08/02/22 08/02/22 Range/Units 11:51 11:51 12:06 RBC 4.05 L (4.30-5.90) m/uL Hgb 12.1 L (13.0-17.5) gm/dL Hct 34.8 L (39.0-53.0) % Plt Count 99 L (150-450) k/uL Lymphocytes # 0.5 L (1.0-4.8) k/uL Chloride 112 H (98-107) mmol/L Glucose 167 H (74-99) mg/dL POC Glucose (mg/dL) 169 H (70-110) mg/dL Calcium 6.9 L (8.4-10.2) mg/dL Total Bilirubin 1.4 H (0.2-1.3) mg/dL AST 65 H (17-59) U/L ALT 68 H (4-49) U/L Alkaline Phosphatase 182 H (38-126) U/L Total Protein 4.1 L (6.3-8.2) g/dL Albumin 2.3 L (3.5-5.0) g/dL Microbiology - Last 24 Hours (Table) 08/01/22 11:25 Gram Stain - Preliminary Toe - Left First Tissue Culture - Preliminary 08/01/22 11:25 Anaerobic Culture - Preliminary Toe - Left First Assessment and Plan Assessment: Bilateral lower extremity weakness Abnormal troponins, of unclear significance, no clear-cut evidence to suggest acute coronary syndrome Elevated d-dimer, chest CT negative for PE Acute kidney injury Hyponatremia Thrombocytopenia Hyperlipidemia Diabetes Neuropathy Plan: Patient will undergo an outpatient stress test to evaluate elevated troponins of unknown etiology. Patient will be started on optimal medical management Continue aspirin, Lipitor, Imdur, and Toprol Continue with telemetry monitoring Further recommendations based on clinical course The above impression and plan of care have been discussed and directed by the signing physician. Litzy Arrington, nurse practitioner, acting as scribe for signing physician.
--- NOTE | 2022-08-02 13:53 | P.PN ---
Subjective Progress Note Date: 08/02/22 Seems that the patient has left foot cellulitis and on 08/01/2022 the patient had debridement of the left big toe. Otherwise patient denies off any other new neurological issues. Denies of any leg weakness or given out. Objective - Vital Signs Vital signs: Vital Signs Temp 98.9 F 08/02/22 08:00 Pulse 83 08/02/22 12:00 Resp 18 08/02/22 12:00 BP 109/53 08/02/22 12:00 Pulse Ox 93 L 08/02/22 12:00 FiO2 Intake & Output 08/01/22 08/02/22 08/02/22 18:59 06:59 18:59 Intake Total 1120 Output Total 626 200 Balance 494 -200 Weight 87.7 kg Intake: IV 1000 Oral 120 Output: Urine 625 200 Estimated Blood Loss 1 Other: # Voids 1 - Exam GENERAL: The patient is lying in bed and is not in acute distress. NEUROLOGICAL: Higher mental function: The patient is awake, alert, oriented to self, place and time. Patient is following commands. No aphasia and no neglect. Cranial nerves: The pupils are round, equal and reactive to light and accommodation. Visual johnson are full to confrontation throughout. Extraocular movement is intact no nystagmus is noted. Facial sensation is normal to touch throughout. The facial strength is normal throughout. Hearing is normal bilaterally to hand rub. Tongue is midline and moved [id number] without any difficulty. No dysarthria is noted. Shoulder shrug is normal bilaterally. Motor: The strength is 5 over 5 throughout. Left ankle is wrapped after procedure yesterday. Normal tone and bulk. Cerebellum: Normal finger to nose bilaterally. Sensation: Sensation is normal to touch throughout. Reflexes (right/left): 2+ throughout except right ankle is 1+ while left is 0. Plantars are mute bilaterally. Some of the workup during his hospital visit consisted of: CK level is 540 which is mildly elevated TSH is 2.84 Vitamin B12 is 317 Folate is 16.20 ESR is 34 Hemoglobin A1c is 7.1. [place] virus PCR was not detected. 2-D echo was reported as normal left ventricular size and systolic function. Mild mitral aortic and tricuspid regurgitation. Venous duplex of lowers is negative for DVT. Lumbar spine is reported as multilevel spondylolisthesis and degenerative changes in the lumbar spine as detailed above. Mild to moderate compression fracture and L1 level suspected subacute or chronic in age. Foot x-ray was reported as tiny suggest osteomyelitis involving the head and neck of the proximal phalanx of the left great toe which can be confirmed with white blood cell scan or triple phase as cryptography - Labs CBC & Chem 7: 08/02/22 11:51 08/02/22 11:51 Labs: Abnormal Lab Results - Last 24 Hours (Table) 08/01/22 08/01/22 08/02/22 Range/Units 16:29 20:15 06:00 RBC (4.30-5.90) m/uL Hgb (13.0-17.5) gm/dL Hct (39.0-53.0) % Plt Count (150-450) k/uL Lymphocytes # (1.0-4.8) k/uL Chloride (98-107) mmol/L Glucose (74-99) mg/dL POC Glucose (mg/dL) 144 H 155 H 137 H (70-110) mg/dL Calcium (8.4-10.2) mg/dL Total Bilirubin (0.2-1.3) mg/dL AST (17-59) U/L ALT (4-49) U/L Alkaline Phosphatase (38-126) U/L Total Protein (6.3-8.2) g/dL Albumin (3.5-5.0) g/dL 08/02/22 08/02/22 08/02/22 Range/Units 11:51 11:51 12:06 RBC 4.05 L (4.30-5.90) m/uL Hgb 12.1 L (13.0-17.5) gm/dL Hct 34.8 L (39.0-53.0) % Plt Count 99 L (150-450) k/uL Lymphocytes # 0.5 L (1.0-4.8) k/uL Chloride 112 H (98-107) mmol/L Glucose 167 H (74-99) mg/dL POC Glucose (mg/dL) 169 H (70-110) mg/dL Calcium 6.9 L (8.4-10.2) mg/dL Total Bilirubin 1.4 H (0.2-1.3) mg/dL AST 65 H (17-59) U/L ALT 68 H (4-49) U/L Alkaline Phosphatase 182 H (38-126) U/L Total Protein 4.1 L (6.3-8.2) g/dL Albumin 2.3 L (3.5-5.0) g/dL Microbiology - Last 24 Hours (Table) 08/01/22 11:25 Gram Stain - Preliminary Toe - Left First Tissue Culture - Preliminary 08/01/22 11:25 Anaerobic Culture - Preliminary Toe - Left First Assessment and Plan Assessment: Transient Lower extremity weakness and possible jerks of extremities due to left foot cellulitis and metabolic derangement---no further weakness since in hospital Suspected compression fracture L1 on CT Left foot cellulitis Chronic peripheral neuropathy Diabetes mellitus and recent HbA1c: 6.9 Acute kidney insufficiency Elevated liver function test Elevated troponin Plan: Because of compression fracture in L1 that is supected, I consulted orthopedic surgery team. They stated no surgical intervention needed.. Continue neuro checks PT and OT are consulted cardiology team is consulted I.D. team is on board. Once patient kidney improves recommend Lyrica 25mg 1-2 tab bid for his peripheral neuropathy management. We'll defer the rest of the medical management to primary team No further neurological work-up. Will sign off. Please reconsult if needed. Time with Patient: Less than 30
[2022-08-02 16:44] LABS: Glucose,Whole Blood 213 mg/dL (70-110)
[2022-08-02] MEDS: COLLAGENASE 250 UNIT/GM OINTMENT 30 GM TUBE TOPICAL SCH (18:47)
[2022-08-02 19:42] LABS: Glucose,Whole Blood 192 mg/dL (70-110)
[2022-08-02] MEDS: ACETAMINOPHEN TAB 325 MG TAB PO PRN (20:51)
--- NOTE | 2022-08-02 22:26 | P.PN ---
Subjective Progress Note Date: 08/01/22 Principal diagnosis: Left big toe diabetic foot infection Patient is a 77-year-old male with multiple comorbidities and did have a left big toe infected callus and underlying diabetes mellitus patient is status post debridement of the infected callus and deep cultures completed on 08/01/2022. On today's evaluation that is 08/01/2022 the patient denies having any fever or any chills the patient is breathing comfortably, the patient denies any chest pain shortness of breath or cough pain to the left big toe is controlled Objective - Vital Signs Vital signs: Vital Signs Temp 98.8 F 08/01/22 11:29 Pulse 81 08/01/22 12:00 Resp 18 08/01/22 12:00 BP 108/61 08/01/22 12:00 Pulse Ox 95 08/01/22 12:00 FiO2 Intake & Output 07/31/22 08/01/22 08/01/22 18:59 06:59 18:59 Intake Total 200 1120 Output Total 725 176 Balance 200 -725 944 Weight 87.3 kg Intake: IV 1000 Oral 200 120 Output: Urine 725 175 Estimated Blood Loss 1 Other: # Voids 2 - Exam GENERAL DESCRIPTION: An elderly male lying in bed in no distress RESPIRATORY SYSTEM: Unlabored breathing , decreased breath sounds at bases HEART: S1 S2 regular rate and rhythm , ABDOMEN: Soft , no tenderness EXTREMITIES: Left foot is currently dressed no drainage on the dressing - Labs CBC & Chem 7: 08/02/22 11:51 08/02/22 11:51 Labs: Abnormal Lab Results - Last 24 Hours (Table) 07/31/22 07/31/22 07/31/22 Range/Units 08:08 08:08 08:08 ESR 34 H (0-20) mm/Hr Chloride (98-107) mmol/L Glucose (74-99) mg/dL POC Glucose (mg/dL) (70-110) mg/dL Hemoglobin A1c 7.1 H (0.0-6.0) % Calcium (8.4-10.2) mg/dL Procalcitonin 14.50 H (0.02-0.09) ng/mL 07/31/22 07/31/22 08/01/22 Range/Units 16:38 20:05 08:13 ESR (0-20) mm/Hr Chloride 114 H (98-107) mmol/L Glucose 111 H (74-99) mg/dL POC Glucose (mg/dL) 168 H 232 H (70-110) mg/dL Hemoglobin A1c (0.0-6.0) % Calcium 6.8 L (8.4-10.2) mg/dL Procalcitonin (0.02-0.09) ng/mL Assessment and Plan (1) Diabetic infection of left foot Current Visit: Yes Status: Acute Code(s): E11.628 - TYPE 2 DIABETES MELLITUS WITH OTHER SKIN COMPLICATIONS; L08.9 - LOCAL INFECTION OF THE SKIN AND SUBCUTANEOUS TISSUE, UNSP SNOMED Code(s): 25133435 Plan: 1patient with left big toe infected plantar callus and secondary cellulitis and patient with underlying diabetes mellitus and more likely due to polymicrobial aneesh usually associated with diabetic foot infection. 2patient is status post vascular surgery evaluation and debridement of the infected callus and deep culture completed on 08/01/2022. 3patient to continue with Unasyn to 3 g every 6 hours while waiting for the cultures to finalize. Time with Patient: Less than 30
--- NOTE | 2022-08-02 22:29 | P.PN ---
Subjective Progress Note Date: 08/02/22 Principal diagnosis: Left big toe diabetic foot infection Patient is a 77-year-old male with multiple comorbidities and did have a left big toe infected callus and underlying diabetes mellitus patient is status post debridement of the infected callus and deep cultures completed on 08/01/2022. On today's evaluation that is 08/02/2022 the patient did spike a fever of 101F last night however the patient is afebrile since then, the patient is breathing comfortably on room air, the patient denies any chest pain shortness of breath or cough pain to the left big toe is controlled, the patient denies abdominal pain and no diarrhea Objective - Vital Signs Vital signs: Vital Signs Temp 98.9 F 08/02/22 08:00 Pulse 89 08/02/22 16:00 Resp 18 08/02/22 16:00 BP 114/64 08/02/22 16:00 Pulse Ox 95 08/02/22 16:00 FiO2 Intake & Output 08/02/22 08/02/22 08/03/22 06:59 18:59 06:59 Intake Total 600 Output Total 200 1000 Balance -200 -400 Weight 87.7 kg Intake: Oral 600 Output: Urine 200 1000 Other: # Voids 1 # Bowel Movements 0 - Exam GENERAL DESCRIPTION: An elderly male lying in bed in no distress RESPIRATORY SYSTEM: Unlabored breathing , decreased breath sounds at bases HEART: S1 S2 regular rate and rhythm , ABDOMEN: Soft , no tenderness EXTREMITIES: Left foot is currently dressed no drainage on the dressing - Labs CBC & Chem 7: 08/02/22 11:51 08/02/22 11:51 Labs: Abnormal Lab Results - Last 24 Hours (Table) 08/02/22 08/02/22 08/02/22 Range/Units 06:00 11:51 11:51 RBC 4.05 L (4.30-5.90) m/uL Hgb 12.1 L (13.0-17.5) gm/dL Hct 34.8 L (39.0-53.0) % Plt Count 99 L (150-450) k/uL Lymphocytes # 0.5 L (1.0-4.8) k/uL Chloride 112 H (98-107) mmol/L Glucose 167 H (74-99) mg/dL POC Glucose (mg/dL) 137 H (70-110) mg/dL Calcium 6.9 L (8.4-10.2) mg/dL Total Bilirubin 1.4 H (0.2-1.3) mg/dL AST 65 H (17-59) U/L ALT 68 H (4-49) U/L Alkaline Phosphatase 182 H (38-126) U/L Total Protein 4.1 L (6.3-8.2) g/dL Albumin 2.3 L (3.5-5.0) g/dL 08/02/22 08/02/22 08/02/22 Range/Units 12:06 16:42 19:40 RBC (4.30-5.90) m/uL Hgb (13.0-17.5) gm/dL Hct (39.0-53.0) % Plt Count (150-450) k/uL Lymphocytes # (1.0-4.8) k/uL Chloride (98-107) mmol/L Glucose (74-99) mg/dL POC Glucose (mg/dL) 169 H 213 H 192 H (70-110) mg/dL Calcium (8.4-10.2) mg/dL Total Bilirubin (0.2-1.3) mg/dL AST (17-59) U/L ALT (4-49) U/L Alkaline Phosphatase (38-126) U/L Total Protein (6.3-8.2) g/dL Albumin (3.5-5.0) g/dL Microbiology - Last 24 Hours (Table) 08/01/22 11:25 Gram Stain - Preliminary Toe - Left First Tissue Culture - Preliminary Assessment and Plan (1) Diabetic infection of left foot Current Visit: Yes Status: Acute Code(s): E11.628 - TYPE 2 DIABETES MELLITUS WITH OTHER SKIN COMPLICATIONS; L08.9 - LOCAL INFECTION OF THE SKIN AND SUBCUTANEOUS TISSUE, UNSP SNOMED Code(s): 76535694 Plan: 1patient with left big toe infected plantar callus and secondary cellulitis and patient with underlying diabetes mellitus and more likely due to polymicrobial aneesh usually associated with diabetic foot infection. 2patient is status post vascular surgery evaluation and debridement of the infected callus and deep culture completed on 08/01/2022. 3patient cultures are still pending we will continue with Unasyn to 3 g every 6 hours and monitor clinical course closely
[2022-08-03] MEDS: SODIUM CHLORIDE 0.9% 1,000 ML IV SCH ×2 (01:23→13:21)
--- NOTE | 2022-08-03 04:35 | PN ---
PROGRESS NOTE DATE OF SERVICE: 08/02/2022 SUBJECTIVE: This is a 77-year-old gentleman, who was admitted with left foot cellulitis, also had multiple medical issues. The patient was closely monitored at this time. Dr. Champion is planning to continue the dressing at this time. No chest pain. No palpitation. Cultures are pending. OBJECTIVE: VITAL SIGNS: Pulse is 83, blood pressure 109/53, respirations 18. CHEST: Clear to auscultation. CARDIOVASCULAR: S1, S2. ABDOMEN: Soft. EXTREMITIES: Left foot cellulitis present. LABS: Reviewed. ASSESSMENT: 1. Acute left foot cellulitis, status post debridement. 2. Elevated troponin, possible acute [id number]-elevation myocardial infarction. 3. Acute kidney injury. 4. Hypertension. 5. Thrombocytopenia. 6. Multiple medical issues. RECOMMENDATIONS: Recommend to continue current medications, continue symptomatic treatment. Closely follow up with Infectious Disease as well as Vascular Surgery. Guarded prognosis. Further recommendations to follow. MMODL / IJN: [id number] /
[2022-08-03 05:46] LABS: Glucose,Whole Blood 149 mg/dL (70-110)
[2022-08-03] MEDS: INSULIN ASPART (NovoLOG) 100 UNIT/ML VIAL SQ SCH ×4 (06:45→20:25)
[2022-08-03] MEDS: AMPICILLIN-SULBACTAM 3 GM in SODIUM CHLORIDE 0.9% 100 ML IVPB SCH ×3 (06:48→17:02)
[2022-08-03] MEDS: ATORVASTATIN 40 MG TAB PO SCH (09:27)
[2022-08-03] MEDS: METOPROLOL SUCCINATE (ER) 25 MG TAB.ER.24H PO SCH (09:27)
[2022-08-03] MEDS: ISOSORBIDE MONONITRATE ER 30 MG TAB.ER.24H PO SCH (09:27)
[2022-08-03] MEDS: COLLAGENASE 250 UNIT/GM OINTMENT 30 GM TUBE TOPICAL SCH (09:27)
[2022-08-03] MEDS: FAMOTIDINE 20 MG/2 ML VIAL IV SCH (09:27)
[2022-08-03] MEDS: ASPIRIN 81 MG PO SCH (09:27)
[2022-08-03 11:54] LABS: Glucose,Whole Blood 229 mg/dL (70-110)
--- NOTE | 2022-08-03 12:03 | P.PN ---
Subjective This is a 77 year old male with a past medical history significant for diabetes and hyperlipidemia. Patient does not follow with a general counselor. We have been asked to see the patient in consultation for abnormal troponins. . Patient states he was outside scrapping off his car when he began to shake everywhere and got very cold. He went inside and made some soup to warm up. He states afterwards he tried to stand up and his legs would not support him. He states he had to crawl up the stairs. He denies having any chest pain or pressure. Denies SOB. He states he is usually pretty active at baseline. EKG reveals sinus mechan ism with no signs of acute ischemia. Troponin 1.990. 1.930. 1.550. Patient was checked for Covid and found to be negative. D-dimer elevated at 3.76. Patient underwent chest CTA which was negative for pulmonary and pleasant. Echocardiogram completed revealing ejection fraction 55-60%, mild MR, mild aortic regurgitation, mild TR. 08/03/2022 Patient seen and examined at bedside, no acute distresss. Endorses some left foot discomfort. No chest pain or shortness of breath. He has had low grade temperatures. Last fever 101F on 08/01 overnight. BP 132/72 HR 93. PHYSICAL EXAM: VITAL SIGNS: Reviewed. GENERAL: Well-developed in no acute distress. HEENT: Head is normocephalic. Neck supple. No JVD LUNGS: Respirations even and unlabored. Lungs essentially clear to auscultation bilaterally. HEART: Regular rate and rhythm. S1 and S2 heard. ABDOMEN: Soft. Nondistended. Nontender. EXTREMITIES: Normal range of motion. No clubbing or cyanosis. Peripheral pulses intact. No lower extremity edema. Left leg/foot covered in bandage. NEUROLOGIC: Awake and alert. Oriented x 3. ASSESSMENT: Bilateral lower extremity weakness Infected callus of left foot, big toe, s/p debridement of the infected callus and deep cultures completed on 08/01/2022 Abnormal troponins, of unclear significance, no clear-cut evidence to suggest acute coronary syndrome Elevated d-dimer, chest CT negative for PE Acute kidney injury Hyponatremia Thrombocytopenia Hyperlipidemia Diabetes Neuropathy PLAN: Dr. Hughes spoke to patient and discussed cardiac cath secondary to abnormal troponins. Patient declining to have cath performed. He is willing to follow up outpatient and have a stress test performed at that time. Transition metoprolol succinate 25mg daily Continue aspirin and statin Continue further workup per neurology and internal medicine and infectious disease We will follow the patient as needed, please reach out with any further questions or concerns. Patient will be scheduled to see Dr. Hughes in the office post discharge Nurse practitioner note has been reviewed by physician. Signing provider agrees with the documented findings, assessment, and plan of care. Objective - Vital Signs Vital signs: Vital Signs Temp 98.6 F 08/03/22 04:00 Pulse 86 08/03/22 04:00 Resp 18 08/03/22 04:00 BP 119/62 08/03/22 04:00 Pulse Ox 94 L 08/03/22 04:00 FiO2 Intake & Output 08/02/22 08/02/22 08/03/22 06:59 18:59 06:59 Intake Total 600 Output Total 200 1000 225 Balance -200 -400 -225 Weight 87.7 kg Intake: Oral 600 Output: Urine 200 1000 225 Other: Voiding Method Urinal # Voids 1 1 # Bowel Movements 0 - Labs CBC & Chem 7: 08/02/22 11:51 08/02/22 11:51 Labs: Abnormal Lab Results - Last 24 Hours (Table) 08/02/22 08/02/22 08/02/22 Range/Units 11:51 11:51 12:06 RBC 4.05 L (4.30-5.90) m/uL Hgb 12.1 L (13.0-17.5) gm/dL Hct 34.8 L (39.0-53.0) % Plt Count 99 L (150-450) k/uL Lymphocytes # 0.5 L (1.0-4.8) k/uL Chloride 112 H (98-107) mmol/L Glucose 167 H (74-99) mg/dL POC Glucose (mg/dL) 169 H (70-110) mg/dL Calcium 6.9 L (8.4-10.2) mg/dL Total Bilirubin 1.4 H (0.2-1.3) mg/dL AST 65 H (17-59) U/L ALT 68 H (4-49) U/L Alkaline Phosphatase 182 H (38-126) U/L Total Protein 4.1 L (6.3-8.2) g/dL Albumin 2.3 L (3.5-5.0) g/dL 08/02/22 08/02/22 08/03/22 Range/Units 16:42 19:40 05:44 RBC (4.30-5.90) m/uL Hgb (13.0-17.5) gm/dL Hct (39.0-53.0) % Plt Count (150-450) k/uL Lymphocytes # (1.0-4.8) k/uL Chloride (98-107) mmol/L Glucose (74-99) mg/dL POC Glucose (mg/dL) 213 H 192 H 149 H (70-110) mg/dL Calcium (8.4-10.2) mg/dL Total Bilirubin (0.2-1.3) mg/dL AST (17-59) U/L ALT (4-49) U/L Alkaline Phosphatase (38-126) U/L Total Protein (6.3-8.2) g/dL Albumin (3.5-5.0) g/dL Microbiology - Last 24 Hours (Table) 08/02/22 00:02 Blood Culture - Preliminary Blood No Growth after 24 hours 08/02/22 00:18 Blood Culture - Preliminary Blood No Growth after 24 hours 08/01/22 11:25 Gram Stain - Preliminary Toe - Left First Tissue Culture - Preliminary
--- NOTE | 2022-08-03 15:08 | P.PN ---
Subjective Progress Note Date: 08/03/22 This is a pleasant 77-year-old male who was recently admitted with left foot cellulitis also had multiple medical issues with multiple medical consultations following including cardiology, vascular surgery, infectious disease, along with neurology. Cardiology following for abnormal troponins as there was elevation although unclear and recommending cardiac catheterization although patient is currently declining and willing to follow-up outpatient to have a stress test and further management at that point. Medications have been adjusted and cardiology clearing the patient for discharge and close outpatient follow-up with Dr. Hughes in the office. Patient is status post excision of the callus that was infected on the left foot along with deep tissue cultures and continued on IV antibiotics with ID following and vascular following changing addresses recommending local wound care with Santyl. Preliminary culture showing coagulase-negative staph and awaiting finalized cultures with blood cultures being negative. Patient was having some fevers a few days ago although has been afebrile for over 24 hours. Recommend continue with Accu-Cheks before meals and at bedtime and continue sliding scale. IV fluids to be cut down. Patient denies nausea or vomiting and tolerating diet. Patient denies any chest pain or shortness of breath. Will have PT/OT therapy evaluate the patient as well. Review of systems: Constitutional: No reports of fatigue, fever, or chills Cardiovascular: No reports of chest pain or palpitations Respiratory: No reports of shortness of breath or cough GI: No reports of nausea, no reports of of vomiting, or diarrhea : No reports of dysuria or retention Neurovascular: reports of generalized weakness, and left foot pain All medications have been reviewed Active Medications Acetaminophen (Acetaminophen Tab 325 Mg Tab) 650 mg PO Q6HR PRN PRN Reason: Fever and/ or Pain Last Admin: 08/02/22 20:51 Dose: 650 mg Artificial Tears (Artificial Tears-Hypromellose Drops 15 Ml Btl) 1 drops BOTH EYES TID PRN PRN Reason: Dry Eye(s) Last Admin: 07/31/22 12:16 Dose: 1 drops Aspirin (Aspirin 81 Mg) 81 mg PO DAILY [facility] Last Admin: 08/03/22 09:27 Dose: 81 mg Atorvastatin Calcium (Atorvastatin 40 Mg Tab) 40 mg PO DAILY [facility] Last Admin: 08/03/22 09:27 Dose: 40 mg Collagenase (Collagenase 250 Unit/Gm Ointment 30 Gm Tube) 1 applic TOPICAL DAILY [facility]; Protocol Last Admin: 08/03/22 09:27 Dose: 1 applic Famotidine (Famotidine 20 Mg/2 Ml Vial) 20 mg IV Q24HR [facility] Last Admin: 08/03/22 09:27 Dose: 20 mg Sodium Chloride (Saline 0.9%) 1,000 mls @ 100 mls/hr IV .Q10H [facility] Last Admin: 08/03/22 13:21 Dose: Not Given Ampicillin Sodium/Sulbactam (Sodium 3 gm/ Sodium Chloride) 100 mls @ 200 mls/hr IVPB Q6HR [facility]; Protocol Last Admin: 08/03/22 12:54 Dose: 200 mls/hr Insulin Aspart (Insulin Aspart (Novolog) 100 Unit/Ml Vial) 0 unit SQ ACHS [facility]; Protocol Last Admin: 08/03/22 12:54 Dose: 4 unit Isosorbide Mononitrate (Isosorbide Mononitrate Er 30 Mg Tab.Er.24h) 30 mg PO DAILY [facility] Last Admin: 08/03/22 09:27 Dose: 30 mg Metoprolol Succinate (Metoprolol Succinate (Er) 25 Mg Tab.Er.24h) 25 mg PO DAILY [facility] Morphine Sulfate (Morphine Sulfate 4 Mg/Ml Syringe) 4 mg IV Q4HR PRN PRN Reason: Severe Pain (Scale 7 to 10) Naloxone HCl (Naloxone 0.4 Mg/Ml 1 Ml Vial) 0.2 mg IV Q2M PRN PRN Reason: Opioid Reversal Ondansetron HCl (Ondansetron 4 Mg/2 Ml Vial) 4 mg IVP Q8HR PRN PRN Reason: Nausea And Vomiting PHYSICAL EXAMINATION: GENERAL: The patient is alert and oriented x4, Well developed, well nourished. HEENT: Pupils are round and equally reacting to light. EOMI. no scleral icterus. No conjunctival pallor. Normocephalic, atraumatic. No pharyngeal erythema. No thyromegaly. CARDIOVASCULAR: S1 and S2 muffled PULMONARY: diminished breath sounds bilaterally with no wheezing or rhonchi noted. ABDOMEN: soft. Nontender on exam. obese. non-distended, normoactive bowel sounds. No palpable organomegaly. MUSCULOSKELETAL: No joint swelling or deformity. EXTREMITIES: No cyanosis, clubbing, or pedal edema. NEUROLOGICAL: Gross neurological examination did not reveal any focal deficits. Diffuse weakness SKIN: No rashes. Assessment: Acute left foot cellulitis, status post debridement Elevated troponin, possible acute non-ST segment elevation myocardial infarction Acute kidney injury Hypertension thrombocytopenia Diabetes mellitus, type II GI prophylaxis DVT prophylaxis Full code Plan: Recommend to continue with current medications and management with multiple medical consultations following. ID following patient is maintained on ampicillin while waiting for cultures to finalized. Vascular surgery Dr. Champion also following the patient post debridement and deep tissue cultures of the left foot and working on dressing changes. Patient continues with significant weakness will have physical therapy evaluate the patient. Recommend continue with Accu-Cheks before meals and at bedtime and sliding scale. Cardiology has evaluated the patient recommend cardiac catheterization due to elevated troponins although patient refusing at this time and is agreeable to follow-up outpatient for stress testing and further intervention at that time. Will await PT/OT therapy notes and finalized cultures to determine discharge antibiotics. Recommend continue with local wound care and will follow up on repeat labs. Encouraged oral intake and increase activity as tolerated. Due to multiple complex medical issues, prognosis is guarded. The impression and plan of care has been dictated by Gerri Drake, nurse practitioner as directed. Dr. Darius LIU I have performed a history and examination and MDM of this patient, discussed the same with the dictator, and agree with the dictator's assessment and plan as written ,documented as a scribe. Based on total visit time, I have performed more than 50% of the visit. Any additional findings or plans will be noted. Objective - Vital Signs Vital signs: Vital Signs Temp 98.5 F 08/03/22 08:00 Pulse 93 08/03/22 08:00 Resp 18 08/03/22 08:00 BP 132/72 08/03/22 08:00 Pulse Ox 93 L 08/03/22 08:00 FiO2 Intake & Output 08/02/22 08/03/22 08/03/22 18:59 06:59 18:59 Intake Total 600 118 Output Total 1000 225 Balance -400 -225 118 Intake: Oral 600 118 Output: Urine 1000 225 Other: Voiding Method Urinal Urinal # Voids 1 # Bowel Movements 0 - Labs CBC & Chem 7: 08/02/22 11:51 08/02/22 11:51 Labs: Abnormal Lab Results - Last 24 Hours (Table) 08/02/22 08/02/22 08/03/22 Range/Units 16:42 19:40 05:44 POC Glucose (mg/dL) 213 H 192 H 149 H (70-110) mg/dL 08/03/22 Range/Units 11:53 POC Glucose (mg/dL) 229 H (70-110) mg/dL Microbiology - Last 24 Hours (Table) 08/01/22 11:25 Gram Stain - Preliminary Toe - Left First Tissue Culture - Preliminary Coagulase Negative Staph Coagulase Negative Staph#2 Coagulase Negative Staph#3 Coagulase Negative Staph#4 08/02/22 00:02 Blood Culture - Preliminary Blood No Growth after 24 hours 08/02/22 00:18 Blood Culture - Preliminary Blood No Growth after 24 hours
[2022-08-03 16:30] LABS: Glucose,Whole Blood 206 mg/dL (70-110)
[2022-08-03 20:08] LABS: Glucose,Whole Blood 254 mg/dL (70-110)
[2022-08-03] MEDS: ACETAMINOPHEN TAB 325 MG TAB PO PRN (20:24)
--- NOTE | 2022-08-03 22:28 | P.PN ---
Subjective Progress Note Date: 08/03/22 Principal diagnosis: Left big toe diabetic foot infection Patient is a 77-year-old male with multiple comorbidities and did have a left big toe infected callus and underlying diabetes mellitus patient is status post debridement of the infected callus and deep cultures completed on 08/01/2022. On today's evaluation that is 08/03/2022 the patient is afebrile today, the patient is breathing comfortably on room air, the patient denies any chest pain shortness of breath or cough pain to the left big toe is controlled, the patient denies abdominal pain and no diarrhea, no new symptoms Objective - Vital Signs Vital signs: Vital Signs Temp 98.5 F 08/03/22 08:00 Pulse 93 08/03/22 08:00 Resp 18 08/03/22 08:00 BP 132/72 08/03/22 08:00 Pulse Ox 93 L 08/03/22 08:00 FiO2 Intake & Output 08/02/22 08/03/22 08/03/22 18:59 06:59 18:59 Intake Total 600 118 Output Total 1000 225 Balance -400 -225 118 Intake: Oral 600 118 Output: Urine 1000 225 Other: Voiding Method Urinal Urinal # Voids 1 # Bowel Movements 0 - Exam GENERAL DESCRIPTION: An elderly male lying in bed in no distress RESPIRATORY SYSTEM: Unlabored breathing , decreased breath sounds at bases HEART: S1 S2 regular rate and rhythm , ABDOMEN: Soft , no tenderness EXTREMITIES: Left foot is currently dressed no drainage on the dressing - Labs CBC & Chem 7: 08/02/22 11:51 08/02/22 11:51 Labs: Abnormal Lab Results - Last 24 Hours (Table) 08/02/22 08/02/22 08/02/22 Range/Units 11:51 11:51 12:06 RBC 4.05 L (4.30-5.90) m/uL Hgb 12.1 L (13.0-17.5) gm/dL Hct 34.8 L (39.0-53.0) % Plt Count 99 L (150-450) k/uL Lymphocytes # 0.5 L (1.0-4.8) k/uL Chloride 112 H (98-107) mmol/L Glucose 167 H (74-99) mg/dL POC Glucose (mg/dL) 169 H (70-110) mg/dL Calcium 6.9 L (8.4-10.2) mg/dL Total Bilirubin 1.4 H (0.2-1.3) mg/dL AST 65 H (17-59) U/L ALT 68 H (4-49) U/L Alkaline Phosphatase 182 H (38-126) U/L Total Protein 4.1 L (6.3-8.2) g/dL Albumin 2.3 L (3.5-5.0) g/dL 08/02/22 08/02/22 08/03/22 Range/Units 16:42 19:40 05:44 RBC (4.30-5.90) m/uL Hgb (13.0-17.5) gm/dL Hct (39.0-53.0) % Plt Count (150-450) k/uL Lymphocytes # (1.0-4.8) k/uL Chloride (98-107) mmol/L Glucose (74-99) mg/dL POC Glucose (mg/dL) 213 H 192 H 149 H (70-110) mg/dL Calcium (8.4-10.2) mg/dL Total Bilirubin (0.2-1.3) mg/dL AST (17-59) U/L ALT (4-49) U/L Alkaline Phosphatase (38-126) U/L Total Protein (6.3-8.2) g/dL Albumin (3.5-5.0) g/dL Microbiology - Last 24 Hours (Table) 08/02/22 00:02 Blood Culture - Preliminary Blood No Growth after 24 hours 08/02/22 00:18 Blood Culture - Preliminary Blood No Growth after 24 hours 08/01/22 11:25 Gram Stain - Preliminary Toe - Left First Tissue Culture - Preliminary Assessment and Plan (1) Diabetic infection of left foot Current Visit: Yes Status: Acute Code(s): E11.628 - TYPE 2 DIABETES MELLITUS WITH OTHER SKIN COMPLICATIONS; L08.9 - LOCAL INFECTION OF THE SKIN AND SUBCUTANEOUS TISSUE, UNSP SNOMED Code(s): 43525475 Plan: 1patient with left big toe infected plantar callus and secondary cellulitis and patient with underlying diabetes mellitus and more likely due to polymicrobial aneesh usually associated with diabetic foot infection. 2patient is status post vascular surgery evaluation and debridement of the infected callus and deep culture completed on 08/01/2022. 3patient has shown some clinical improvement and cultures are still pending we will continue with Unasyn to 3 g every 6 hours and monitor clinical course closely Time with Patient: Less than 30
[2022-08-04] MEDS: AMPICILLIN-SULBACTAM 3 GM in SODIUM CHLORIDE 0.9% 100 ML IVPB SCH ×4 (00:23→17:30)
[2022-08-04] MEDS: SODIUM CHLORIDE 0.9% 1,000 ML IV SCH ×3 (00:25→17:27)
[2022-08-04 06:05] LABS: Glucose,Whole Blood 115 mg/dL (70-110)
[2022-08-04] MEDS: INSULIN ASPART (NovoLOG) 100 UNIT/ML VIAL SQ SCH ×4 (06:10→21:15)
--- NOTE | 2022-08-04 08:09 | PN ---
PROGRESS NOTE This is a 77-year-old gentleman who came with infected callus left foot big toe. The patient went for debridement and excision of the callus. The patient is on IV antibiotic. We have been changing the dressing daily, using Santyl cream. On the dorsal aspect of the big toe left, redness noted. On base of the wound, no discharge noted. We have changed the dressing today. I placed a Santyl cream which will be changed on a daily basis. MMODL / IJN: [id number] /
[2022-08-04] MEDS: ASPIRIN 81 MG PO SCH (08:15)
[2022-08-04] MEDS: METOPROLOL SUCCINATE (ER) 25 MG TAB.ER.24H PO SCH (08:15)
[2022-08-04] MEDS: ATORVASTATIN 40 MG TAB PO SCH (08:15)
[2022-08-04] MEDS: FAMOTIDINE 20 MG/2 ML VIAL IV SCH (08:16)
[2022-08-04] MEDS: ISOSORBIDE MONONITRATE ER 30 MG TAB.ER.24H PO SCH (08:17)
[2022-08-04 08:29] LABS: Basophils % (A) 0 %; Eosinophils # (A) 0.1 k/uL (0-0.7); Eosinophils % (A) 1 %; HCT 37.2 % (39.0-53.0); HGB 12.4 gm/dL (13.0-17.5); Lymphocytes # (A) 0.6 k/uL (1.0-4.8); Lymphocytes % (A) 9 %; MCH 28.5 pg (25.0-35.0); MCHC 33.3 g/dL (31.0-37.0); MCV 85.8 fL (80.0-100.0); Mean Platelet Volume 8.4; Monocytes # (A) 0.3 k/uL (0-1.0); Monocytes % (A) 4 %; Neutrophils # (A) 5.5 k/uL (1.3-7.7); Neutrophils % (A) 83 %; RBC 4.34 m/uL (4.30-5.90); RDW 12.9 % (11.5-15.5); WBC 6.6 k/uL (3.8-10.6)
[2022-08-04 08:37] LABS: Platelet Count 155 k/uL (150-450)
[2022-08-04 08:47] LABS: ALT 59 U/L (4-49); AST 36 U/L (17-59); African American GFR (CKD) >90 (>60 ml/min/1.73 sqM); Albumin 2.5 g/dL (3.5-5.0); Alkaline Phosphatase 244 U/L (38-126); Anion Gap 2 mmol/L; Blood Urea Nitrogen 14 mg/dL (9-20); Calcium 7.3 mg/dL (8.4-10.2); Carbon Dioxide 27 mmol/L (22-30); Chloride 111 mmol/L (98-107); Glucose 185 mg/dL (74-99); Non-African American GFR(CKD) >90 (>60 ml/min/1.73 sqM); Potassium 3.9 mmol/L (3.5-5.1); Sodium 140 mmol/L (137-145); Total Protein 4.5 g/dL (6.3-8.2)
[2022-08-04 11:31] LABS: Glucose,Whole Blood 192 mg/dL (70-110)
[2022-08-04 12:57] VITALS: BMI 25.4
--- NOTE | 2022-08-04 15:10 | P.PN ---
Subjective Progress Note Date: 08/04/22 This is a pleasant 77-year-old male who was recently admitted with left foot cellulitis also had multiple medical issues with multiple medical consultations following including cardiology, vascular surgery, infectious disease, along with neurology. Cardiology following for abnormal troponins as there was elevation although unclear and recommending cardiac catheterization although patient is currently declining and willing to follow-up outpatient to have a stress test and further management at that point. Medications have been adjusted and cardiology clearing the patient for discharge and close outpatient follow-up with Dr. Hughes in the office. Patient is status post excision of the callus that was infected on the left foot along with deep tissue cultures and continued on IV antibiotics with ID following and vascular following changing addresses recommending local wound care with Santyl. Preliminary culture showing coagulase-negative staph and awaiting finalized cultures with blood cultures being negative. Patient was having some fevers a few days ago although has been afebrile for over 24 hours. Recommend continue with Accu-Cheks before meals and at bedtime and continue sliding scale. IV fluids to be cut down. Patient denies nausea or vomiting and tolerating diet. Patient denies any chest pain or shortness of breath. Will have PT/OT therapy evaluate the patient as well. 08/04/2022 Patient is seen and evaluated in follow-up today maintained on IV antibiotics with ID following closely. Discussed with ID and patient will require outpatient IV antibiotic therapy and will receive a PICC line today. Blood cultures remain negative and initial cultures of the left toe showing coagulase- negative staph. Patient also with weakness was evaluated by physical therapy and recommended follow daily. Patient is agreeable to rehab with case management following an initiating insurance authorization. Patient denies chest pain or shortness of breath. Patient denies nausea or vomiting and reporting tolerating diet. Labs reviewed today and within normal limits. Blood sugars variable and recommend continue with current medication regimen with Accu-Cheks before meals and at bedtime. Review of systems: Constitutional: No reports of fatigue, fever, or chills Cardiovascular: No reports of chest pain or palpitations Respiratory: No reports of shortness of breath or cough GI: No reports of nausea, no reports of of vomiting, or diarrhea : No reports of dysuria or retention Neurovascular: reports of generalized weakness, and left foot pain All medications have been reviewed Active Medications Acetaminophen (Acetaminophen Tab 325 Mg Tab) 650 mg PO Q6HR PRN PRN Reason: Fever and/ or Pain Last Admin: 08/03/22 20:24 Dose: 650 mg Artificial Tears (Artificial Tears-Hypromellose Drops 15 Ml Btl) 1 drops BOTH EYES TID PRN PRN Reason: Dry Eye(s) Last Admin: 07/31/22 12:16 Dose: 1 drops Aspirin (Aspirin 81 Mg) 81 mg PO DAILY [facility] Last Admin: 08/04/22 08:15 Dose: 81 mg Atorvastatin Calcium (Atorvastatin 40 Mg Tab) 40 mg PO DAILY [facility] Last Admin: 08/04/22 08:15 Dose: 40 mg Collagenase (Collagenase 250 Unit/Gm Ointment 30 Gm Tube) 1 applic TOPICAL DAILY [facility]; Protocol Last Admin: 08/03/22 09:27 Dose: 1 applic Famotidine (Famotidine 20 Mg/2 Ml Vial) 20 mg IV Q24HR [facility] Last Admin: 08/04/22 08:16 Dose: 20 mg Sodium Chloride (Saline 0.9%) 1,000 mls @ 100 mls/hr IV .Q10H [facility] Last Admin: 08/04/22 06:14 Dose: Not Given Ampicillin Sodium/Sulbactam (Sodium 3 gm/ Sodium Chloride) 100 mls @ 200 mls/hr IVPB Q6HR [facility]; Protocol Last Admin: 08/04/22 12:39 Dose: 200 mls/hr Insulin Aspart (Insulin Aspart (Novolog) 100 Unit/Ml Vial) 0 unit SQ ACHS [facility]; Protocol Last Admin: 08/04/22 12:39 Dose: 2 unit Isosorbide Mononitrate (Isosorbide Mononitrate Er 30 Mg Tab.Er.24h) 30 mg PO DAILY [facility] Last Admin: 08/04/22 08:17 Dose: 30 mg Metoprolol Succinate (Metoprolol Succinate (Er) 25 Mg Tab.Er.24h) 25 mg PO DAILY [facility] Last Admin: 08/04/22 08:15 Dose: 25 mg Morphine Sulfate (Morphine Sulfate 4 Mg/Ml Syringe) 4 mg IV Q4HR PRN PRN Reason: Severe Pain (Scale 7 to 10) Naloxone HCl (Naloxone 0.4 Mg/Ml 1 Ml Vial) 0.2 mg IV Q2M PRN PRN Reason: Opioid Reversal Ondansetron HCl (Ondansetron 4 Mg/2 Ml Vial) 4 mg IVP Q8HR PRN PRN Reason: Nausea And Vomiting PHYSICAL EXAMINATION: GENERAL: The patient is alert and oriented x4, Well developed, well nourished. HEENT: Pupils are round and equally reacting to light. EOMI. no scleral icterus. No conjunctival pallor. Normocephalic, atraumatic. No pharyngeal erythema. No thyromegaly. CARDIOVASCULAR: S1 and S2 muffled PULMONARY: diminished breath sounds bilaterally with no wheezing or rhonchi noted. ABDOMEN: soft. Nontender on exam. obese. non-distended, normoactive bowel sounds. No palpable organomegaly. MUSCULOSKELETAL: No joint swelling or deformity. EXTREMITIES: No cyanosis, clubbing, or pedal edema. NEUROLOGICAL: Gross neurological examination did not reveal any focal deficits. Diffuse weakness SKIN: No rashes. Assessment: Acute left foot cellulitis, status post debridement Elevated troponin, with no clear-cut evidence to suggest acute coronary syndrome, likely type II Acute kidney injury Hypertension thrombocytopenia Diabetes mellitus, type II Generalized weakness Gait dysfunction GI prophylaxis DVT prophylaxis Full code Plan: Recommend to continue with current medications and management with multiple medical consultations following. ID following patient is maintained on ampicillin while waiting for cultures to finalize. Vascular surgery Dr. Champion also following the patient post debridement and deep tissue cultures of the left foot and working on dressing changes. Patient will need close outpatient follow-up with Dr. Champion in the clinic. Patient is to receive a PICC line and will continue on IV antibiotics per ID recommendations. Blood cultures remain negative. Patient continues with significant weakness physical therapy evaluated the patient and planning on ECF for IV antibiotic therapy along with continued PT/OT therapy. Recommend continue with Accu-Cheks before meals and at bedtime and sliding scale. Cardiology has evaluated the patient recommend cardiac catheterization due to elevated troponins although patient refusing at this time and is agreeable to follow-up outpatient for stress testing and further intervention at that time. Recommend continue with local wound care and will follow up on repeat labs. Encouraged oral intake and increase activity as tolerated. Due to multiple complex medical issues, prognosis is guarded. Possible discharge in 24-48 hours. The impression and plan of care has been dictated by Gerri Drake, nurse practitioner as directed. Dr. Darius LIU I have performed a history and examination and MDM of this patient, discussed the same with the dictator, and agree with the dictator's assessment and plan as written ,documented as a scribe. Based on total visit time, I have performed more than 50% of the visit. Any additional findings or plans will be noted. Objective - Vital Signs Vital signs: Vital Signs Temp 98.3 F 08/04/22 08:13 Pulse 92 08/04/22 08:13 Resp 16 08/04/22 08:13 BP 121/57 08/04/22 08:13 Pulse Ox 94 L 08/04/22 08:13 FiO2 Intake & Output 08/03/22 08/04/22 08/04/22 18:59 06:59 18:59 Intake Total 118 120 Output Total 350 150 Balance -232 -30 Intake: Oral 118 120 Output: Urine 350 150 Other: Voiding Method Urinal Urinal # Voids 1 1 # Bowel Movements 1 1 - Labs CBC & Chem 7: 08/04/22 07:59 08/04/22 07:59 Labs: Abnormal Lab Results - Last 24 Hours (Table) 08/03/22 08/03/22 08/03/22 Range/Units 11:53 16:28 20:07 Hgb (13.0-17.5) gm/dL Hct (39.0-53.0) % Lymphocytes # (1.0-4.8) k/uL Chloride (98-107) mmol/L Glucose (74-99) mg/dL POC Glucose (mg/dL) 229 H 206 H 254 H (70-110) mg/dL Calcium (8.4-10.2) mg/dL ALT (4-49) U/L Alkaline Phosphatase (38-126) U/L Total Protein (6.3-8.2) g/dL Albumin (3.5-5.0) g/dL 08/04/22 08/04/22 08/04/22 Range/Units 06:04 07:59 07:59 Hgb 12.4 L (13.0-17.5) gm/dL Hct 37.2 L (39.0-53.0) % Lymphocytes # 0.6 L (1.0-4.8) k/uL Chloride 111 H (98-107) mmol/L Glucose 185 H (74-99) mg/dL POC Glucose (mg/dL) 115 H (70-110) mg/dL Calcium 7.3 L (8.4-10.2) mg/dL ALT 59 H (4-49) U/L Alkaline Phosphatase 244 H (38-126) U/L Total Protein 4.5 L (6.3-8.2) g/dL Albumin 2.5 L (3.5-5.0) g/dL Microbiology - Last 24 Hours (Table) 08/01/22 11:25 Gram Stain - Final Toe - Left First Tissue Culture - Final Coagulase Negative Staph Coagulase Negative Staph#2 Coagulase Negative Staph#3 Coagulase Negative Staph#4 08/02/22 00:02 Blood Culture - Preliminary Blood No Growth after 48 hours 08/02/22 00:18 Blood Culture - Preliminary Blood No Growth after 48 hours 08/01/22 11:25 Anaerobic Culture - Preliminary Toe - Left First
[2022-08-04 16:31] LABS: Glucose,Whole Blood 214 mg/dL (70-110)
[2022-08-04] MEDS: COLLAGENASE 250 UNIT/GM OINTMENT 30 GM TUBE TOPICAL SCH (18:28)
[2022-08-04 19:57] LABS: Glucose,Whole Blood 199 mg/dL (70-110)
[2022-08-04] MEDS ORDERED: COLLAGENASE 250 UNIT/GM OINTMENT 30 GM TUBE TOPICAL SCH (21:00)
[2022-08-04] MEDS: ACETAMINOPHEN TAB 325 MG TAB PO PRN (21:15)
[2022-08-04 22:51] VITALS: RESP 18
[2022-08-05] MEDS: AMPICILLIN-SULBACTAM 3 GM in SODIUM CHLORIDE 0.9% 100 ML IVPB SCH ×3 (00:30→12:51)
[2022-08-05 06:06] LABS: Glucose,Whole Blood 116 mg/dL (70-110)
[2022-08-05] MEDS: INSULIN ASPART (NovoLOG) 100 UNIT/ML VIAL SQ SCH ×2 (06:25→12:51)
[2022-08-05] MEDS: SODIUM CHLORIDE 0.9% 1,000 ML IV SCH (07:39)
[2022-08-05 08:05] VITALS: BP 117/62; PULSE 83; TEMP 98.2
[2022-08-05] MEDS: ATORVASTATIN 40 MG TAB PO SCH (08:06)
[2022-08-05] MEDS: METOPROLOL SUCCINATE (ER) 25 MG TAB.ER.24H PO SCH (08:06)
[2022-08-05] MEDS: ASPIRIN 81 MG PO SCH (08:06)
[2022-08-05] MEDS: ISOSORBIDE MONONITRATE ER 30 MG TAB.ER.24H PO SCH (08:06)
[2022-08-05] MEDS: FAMOTIDINE 20 MG/2 ML VIAL IV SCH (08:06)
--- NOTE | 2022-08-05 10:56 | CDI ---
Documentation Clarification Form Date: 08/05/2022 10:08:10 AM From: Amber Crouch RN CCDS Admit Date: 07/30/2022 04:57:00 AM Patient Name: Antelmo Keith Visit Number: [id number] Discharge Date: ATTENTION: The Clinical Documentation Specialists (CDI) and [facility] Coding Staff appreciate your assistance in clarifying documentation. Please respond to the clarification below the line at the bottom and electronically sign. The CDI & [facility] Coding staff will review the response and follow-up if needed. Please note: Queries are made part of the Legal Health Record. If you have any questions, please contact the author of this message via ITS. Dr. Luis Felipe Nieves debridement is documented 08/01, Procedure note. Additional clarification regarding the procedure is requested. History/Risk Factors: 77-year-old male presents to the ED with generalized body aches, shakiness, weakness and being cold. Medical History: DM. H&P, 07/30 Clinical Indicators: Preoperative diagnosis: Infected callus left foot big toe plantar aspect. Post operative diagnosis: same measurement is 2.5 x 3 and have by 0.5cm Procedure Note, 08/01: were infiltrated using knife we excised the callus down to separate his tissue and the fact the callus was sent for deep culture developed as tissue was excised with sharp knife bleeding points well controlled Treatment: 08/01 Excisional debridement of infected callus left foot big toe plantar aspect. Santyl cream, daily dressing changes and 08/02- 08/04 Cefepime IVPB Q8HR; 08/02- 08/03 Vancomycin IVPB Q12H; 08/04 current Cefepime IVPB Q12HR Please clarify the depth of procedure: [ ] Depth of the debridement ( e.g., skin, subcutaneous tissue, fascia, muscle, bone, etc.) [ ] Other; please specify [ ] Unable to determine Five elements required for accurate and compliant documentation of a debridement: Technique used (e.g., excisional, excised, cutting, brushing, jet lavage etc.) Instrument(s) used (e.g., scalpel, curette, etc.) Nature of the tissue removed (e.g., necrotic, devitalized tissues, non-viable tissue, etc.) Appearance and size of the wound (e.g., down to fresh bleeding tissue, 7cm x 10cm, etc.) Depth of the debridement* (e.g., skin, subcutaneous tissue, fascia, muscle, bone, etc.) (Template Last Revised: November 2020) MTDD
[2022-08-05 11:40] LABS: Glucose,Whole Blood 170 mg/dL (70-110)
--- NOTE | 2022-08-05 12:36 | IR ---
PICC LINE PLACEMENT: HISTORY: Infection requiring long-term antibiotic therapy PROCEDURE: Ultrasound and fluoroscopic guidance of PICC line placement. COMPLICATIONS: None ANESTHESIA: 1. 1% Lidocaine locally. FINDINGS/TECHNIQUE: The procedure was explained to the patient. The risks, complications, benefits and alternatives were discussed and any questions were answered. Informed consent was obtained. The patient was placed supine on the fluoroscopic table and prepped and draped in the usual sterile fash ion. Utilizing a 21 gauge needle and sonographic and fluoroscopic guidance, access in the left basi lic vein was achieved and there is placement of a 0.018 guidewire. The vein is patent. A 4-F sheath was placed over the guidewire. The guidewire and dilator were removed and a 4-F. PICC line was plac ed through the sheath with the tip at the level of the SVC. The sheath was removed, the catheter was flushed and sutured into position. The patient was stable throughout the procedure and remained sta ble upon discharge from the Department of Radiology. The vein puncture was patent under ultrasound. A tillman scale image was obtained to document patency of the vein punctured. All elements of the maximal barrier technique were utilized. FLUOROSCOPY TIME: 0.1 minutes and one image submitted IMPRESSION: Successful PICC line placement under ultrasound and fluoroscopic guidance.
--- NOTE | 2022-08-05 13:19 | P.DS ---
Providers Date of admission: 07/30/22 04:57 Expected date of discharge: 08/05/22 Attending physician: Zee Mccoy Consults: 07/30/22 10:21 Consult Physician Urgent Consulting Provider: Cecille Cullen Consult Reason/Comments: elevated troponin Do you want consulting provider notified?: Yes 07/30/22 13:15 Consult Physician Urgent Consulting Provider: Jaime Gray Consult Reason/Comments: Bilateral Leg Weakness Do you want consulting provider notified?: Yes 07/31/22 09:00 Consult Physician Urgent Consulting Provider: Willy Sánchez Consult Reason/Comments: lumbar compression fracture Do you want consulting provider notified?: Yes 07/31/22 14:50 Consult Physician Urgent Consulting Provider: Gregg Weinberg Consult Reason/Comments: left foot cellulitis Do you want consulting provider notified?: Yes 07/31/22 17:31 Consult Physician Routine Consulting Provider: Luis Felipe Champion Consult Reason/Comments: left big toe infected , debridemnt and deep cultures Do you want consulting provider notified?: Yes Primary care physician: Rangel Lam Hospital Course: Final diagnosis Acute left foot cellulitis, status post debridement Elevated troponin, with no clear-cut evidence to suggest acute coronary syndrome, likely type II Acute kidney injury Hypertension thrombocytopenia Diabetes mellitus, type II Generalized weakness Gait dysfunction GI prophylaxis DVT prophylaxis Full code Discharge disposition Patient is being discharged in a stable condition with guarded prognosis to [facility]. Patient will follow-up with Dr. Goldberg in the outpatient setting upon discharge. Patient is to continue with IV antibiotics in the form of Unasyn 3 g every 6 hours for the next 6 weeks per ID recommendations. Patient needs to follow-up with Dr. Weinberg at the wound care center along with Dr. Champion as scheduled. Total time taken is greater than 35 minutes. Hospital course This is a 77-year-old male who was recently admitted with left foot cellulitis also multiple medical issues including elevated troponins and was evaluated by multiple medical consultations. Patient also was seen by Dr. Champion who he follows with outpatient and underwent debridement of the left great toe. Currently being treated with IV antibiotics and patient has received a PICC line for outpatient antibiotics for the next 6 weeks per ID recommendations. Patient will need close outpatient follow-up with vascular surgery Dr. Champion along with Dr. Weinberg at his wound care center at [facility]. Patient to follow-up with cardiology outpatient for possible stress testing as he refused cardiac catheterization during hospitalization. Patient will follow-up with Dr. Hughes outpatient. Currently no reports of chest pain, shortness of breath, or palpitations. Patient is afebrile. No reports of nausea or vomiting and patient is tolerating diet. He is diabetic and recommend continuing Accu-Cheks before meals and at bedtime along with healthy and diabetic diet. Patient will be going to [facility] on the [place] today. Guarded Prognosis. Physical exam: Gen: This is a 77-year-old male awake, alert and oriented 3, well-developed, well-nourished. HEENT: Head is atraumatic, normocephalic. Pupils equal, round. Sclerae is anicteric. NECK: Supple. No JVD. No lymphadenopathy. No thyromegaly. LUNGS: Diminished breath sounds bilaterally with no wheezes or rhonchi. No intercostal retractions. HEART: S1, S2 are muffled ABDOMEN: Soft. Bowel sounds are present. No masses. No tenderness. EXTREMITIES: No pedal edema. No calf tenderness. Left great toe surgical dhruv ssing is currently dry and intact NEUROLOGICAL: Patient is awake, alert and oriented x3. Cranial nerves 2 through 12 are grossly intact. Please refer to medication reconciliation sheet for a list of medications. The impression and plan of care has been dictated by Gerri Drake, Nurse Practitioner as directed. Dr. Darius MD I have performed a history and examination and MDM of this patient, discussed the same with the dictator, and agree with the dictator's assessment and plan as written ,documented as a scribe. Based on total visit time, I have performed more than 50% of the visit. Patient Condition at Discharge: Fair Plan - Discharge Summary Discharge Rx Participant: Yes New Discharge Prescriptions: New Artificial Tears-Hypromellose [Artificial Tear Drops] 1 drops BOTH EYES TID PRN ml PRN Reason: Dry Eye(S) Aspirin 81 mg PO DAILY tab INSULIN ASPART (NovoLOG) [NovoLOG (formulary)] 0 unit SQ ACHS each Collagenase [Santyl Ointment] 1 applic TOPICAL HS each Metoprolol Succinate (ER) [Toprol XL] 25 mg PO DAILY tab Acetaminophen Tab [Tylenol] 650 mg PO Q6HR PRN tab PRN Reason: Fever And/ Or Pain Ampicillin-Sulbactam [Unasyn] 3 gm IVPB Q6HR 42 Days #168 each Heparin Sodium,Porcine [Heparin Sodium] 5,000 unit SQ Q12HR 30 Days #60 each Isosorbide Mononitrate ER [Imdur] 30 mg PO DAILY tab Continue glipiZIDE [Glucotrol] 5 mg PO AC-BID Atorvastatin Calcium [Lipitor] 40 mg PO DIRECTED Discharge Medication List Atorvastatin Calcium [Lipitor] 40 mg PO DIRECTED 07/30/22 [History] glipiZIDE [Glucotrol] 5 mg PO AC-BID 07/30/22 [History] Acetaminophen Tab [Tylenol] 650 mg PO Q6HR PRN tab 08/05/22 [Rx] Ampicillin-Sulbactam [Unasyn] 3 gm IVPB Q6HR 42 Days #168 each 08/05/22 [Rx] Artificial Tears-Hypromellose [Artificial Tear Drops] 1 drops BOTH EYES TID PRN ml 08/05/22 [Rx] Aspirin 81 mg PO DAILY tab 08/05/22 [Rx] Collagenase [Santyl Ointment] 1 applic TOPICAL HS each 08/05/22 [Rx] Heparin Sodium,Porcine [Heparin Sodium] 5,000 unit SQ Q12HR 30 Days #60 each 1 10/05/21 [Rx] INSULIN ASPART (NovoLOG) [NovoLOG (formulary)] 0 unit SQ ACHS each 08/05/22 [Rx] Isosorbide Mononitrate ER [Imdur] 30 mg PO DAILY tab 08/05/22 [Rx] Metoprolol Succinate (ER) [Toprol XL] 25 mg PO DAILY tab 08/05/22 [Rx] Follow up Appointment(s)/Referral(s): Rangel Lam MD [Primary Care Provider] - 1-2 days Marilyn Hughes MD [STAFF PHYSICIAN] - 1 Week [facility] [NON-STAFF] - 1 Week Luis Felipe Champion MD [STAFF PHYSICIAN] - 1 Week Gregg Weinberg MD [STAFF PHYSICIAN] - 1 Week (call [phone] Weinberg's clinic at [facility] for an appointment in 1-2 weeks) Patient Instructions/Handouts: Osteomyelitis (DC) Activity/Diet/Wound Care/Special Instructions: Patient is going to [facility] on the [place] Activity as tolerated Continue heart healthy diabetic diet Continue to monitor Accu-Cheks before meals and at bedtime and treat accordingly with sliding scale NovoLog sliding scale 0-150 equals 0 units 151-200 equals 2 units 201-250 equals 4 units 251-300 equals 6 units 301-350 equals 8 units 351-400 equals 10 units Please notify provider if blood sugar is 400 or above Follow-up with Dr. Weinberg at [facility] at the wound care center in 1-2 weeks Continue with PICC line and IV antibiotics per infectious disease recommendations Follow-up with Dr. Champion in 1-2 weeks in the clinic Continue local wound care to the left lower extremity Elevate while at rest Patient to discuss with social work at [facility] about discharging home with home care with [facility] Discharge Disposition: TRANSFER TO SNF/ECF
--- NOTE | 2022-08-10 07:07 | CDI ---
Documentation Clarification Form Date: 08/05/2022 10:08:10 AM From: Amber Crouch RN CCDS Admit Date: 07/30/2022 04:57:00 AM Patient Name: Antelmo Keith Visit Number: [id number] Discharge Date: ATTENTION: The Clinical Documentation Specialists (CDI) and [facility] Coding Staff appreciate your assistance in clarifying documentation. Please respond to the clarification below the line at the bottom and electronically sign. The CDI & [facility] Coding staff will review the response and follow-up if needed. Please note: Queries are made part of the Legal Health Record. If you have any questions, please contact the author of this message via ITS. Dr. Luis Felipe Nieves debridement is documented 08/01, Procedure note. Additional clarification regarding the procedure is requested. History/Risk Factors: 77-year-old male presents to the ED with generalized body aches, shakiness, weakness and being cold. Medical History: DM. H&P, 07/30 Clinical Indicators: Preoperative diagnosis: Infected callus left foot big toe plantar aspect. Post operative diagnosis: same measurement is 2.5 x 3 and have by 0.5cm Procedure Note, 08/01: were infiltrated using knife we excised the callus down to separate his tissue and the fact the callus was sent for deep culture developed as tissue was excised with sharp knife bleeding points well controlled Treatment: 08/01 Excisional debridement of infected callus left foot big toe plantar aspect. Santyl cream, daily dressing changes and 08/02- 08/04 Cefepime IVPB Q8HR; 08/02- 08/03 Vancomycin IVPB Q12H; 08/04 current Cefepime IVPB Q12HR Please clarify the depth of procedure: [X ] Depth of the debridement (subcutaneous tissue) [ ] Other; please specify [ ] Unable to determine Five elements required for accurate and compliant documentation of a debridement: Technique used (e.g., excisional, excised, cutting, brushing, jet lavage etc.) Instrument(s) used (e.g., scalpel, curette, etc.) Nature of the tissue removed (e.g., necrotic, devitalized tissues, non-viable tissue, etc.) Appearance and size of the wound (e.g., down to fresh bleeding tissue, 7cm x 10cm, etc.) Depth of the debridement* (e.g., skin, subcutaneous tissue, fascia, muscle, bone, etc.) (Template Last Revised: November 2020) ISABELLE
--- NOTE | 2022-08-12 23:18 | P.PN ---
Subjective Progress Note Date: 08/04/22 Principal diagnosis: Left big toe diabetic foot infection Patient is a 77-year-old male with multiple comorbidities and did have a left big toe infected callus and underlying diabetes mellitus patient is status post debridement of the infected callus and deep cultures completed on 08/01/2022. On today's evaluation that is 08/04/2022 the patient remains to be afebrile, the patient is breathing comfortably on room air, the patient denies any chest pain shortness of breath breath and no significant cough, pain to the left big toe is controlled, the patient denies abdominal pain and no diarrhea, Objective - Vital Signs Vital signs: Vital Signs Temp 98.3 F 08/04/22 08:13 Pulse 70 08/04/22 12:32 Resp 16 08/04/22 12:32 BP 110/63 08/04/22 12:32 Pulse Ox 96 08/04/22 12:32 FiO2 Intake & Output 08/03/22 08/04/22 08/04/22 18:59 06:59 18:59 Intake Total 118 120 118 Output Total 350 150 150 Balance -232 -30 -32 Weight 87.7 kg Intake: Oral 118 120 118 Output: Urine 350 150 150 Other: Voiding Method Urinal Urinal Urinal # Voids 1 1 # Bowel Movements 1 1 - Exam GENERAL DESCRIPTION: An elderly male lying in bed in no distress RESPIRATORY SYSTEM: Unlabored breathing , decreased breath sounds at bases HEART: S1 S2 regular rate and rhythm , ABDOMEN: Soft , no tenderness EXTREMITIES: Left foot is currently dressed no drainage on the dressing - Labs CBC & Chem 7: 08/04/22 07:59 08/04/22 07:59 Labs: Abnormal Lab Results - Last 24 Hours (Table) 08/03/22 08/03/22 08/04/22 Range/Units 16:28 20:07 06:04 Hgb (13.0-17.5) gm/dL Hct (39.0-53.0) % Lymphocytes # (1.0-4.8) k/uL Chloride (98-107) mmol/L Glucose (74-99) mg/dL POC Glucose (mg/dL) 206 H 254 H 115 H (70-110) mg/dL Calcium (8.4-10.2) mg/dL ALT (4-49) U/L Alkaline Phosphatase (38-126) U/L Total Protein (6.3-8.2) g/dL Albumin (3.5-5.0) g/dL 08/04/22 08/04/22 08/04/22 Range/Units 07:59 07:59 11:28 Hgb 12.4 L (13.0-17.5) gm/dL Hct 37.2 L (39.0-53.0) % Lymphocytes # 0.6 L (1.0-4.8) k/uL Chloride 111 H (98-107) mmol/L Glucose 185 H (74-99) mg/dL POC Glucose (mg/dL) 192 H (70-110) mg/dL Calcium 7.3 L (8.4-10.2) mg/dL ALT 59 H (4-49) U/L Alkaline Phosphatase 244 H (38-126) U/L Total Protein 4.5 L (6.3-8.2) g/dL Albumin 2.5 L (3.5-5.0) g/dL Microbiology - Last 24 Hours (Table) 08/01/22 11:25 Gram Stain - Final Toe - Left First Tissue Culture - Final Coagulase Negative Staph Coagulase Negative Staph#2 Coagulase Negative Staph#3 Coagulase Negative Staph#4 08/02/22 00:02 Blood Culture - Preliminary Blood No Growth after 48 hours 08/02/22 00:18 Blood Culture - Preliminary Blood No Growth after 48 hours 08/01/22 11:25 Anaerobic Culture - Preliminary Toe - Left First Assessment and Plan (1) Diabetic infection of left foot Status: Acute Code(s): E11.628 - TYPE 2 DIABETES MELLITUS WITH OTHER SKIN COMPLICATIONS; L08.9 - LOCAL INFECTION OF THE SKIN AND SUBCUTANEOUS TISSUE, UNSP SNOMED Code(s): 67174408 Plan: 1patient with left big toe infected plantar callus and secondary cellulitis and patient with underlying diabetes mellitus and more likely due to polymicrobial aneesh usually associated with diabetic foot infection. 2patient is status post vascular surgery evaluation and debridement of the infected callus and deep culture completed on 08/01/2022. 3patient has shown some clinical improvement and cultures are currently growing coagulase negative staph we will continue with Unasyn to 3 g every 6 hours and monitor clinical course closely Time with Patient: Less than 30
--- NOTE | 2022-08-12 23:20 | P.PN ---
Subjective Progress Note Date: 08/05/22 Principal diagnosis: Left big toe diabetic foot infection Patient is a 77-year-old male with multiple comorbidities and did have a left big toe infected callus and underlying diabetes mellitus patient is status post debridement of the infected callus and deep cultures completed on 08/01/2022. On today's evaluation that is 08/05/2022 the patient continues to be afebrile, the patient is breathing comfortably on room air, the patient denies any chest pain shortness of breath breath and no significant cough, the patient has any worsening pain to the left big toe , the patient denies abdominal pain and no diarrhea, Objective - Vital Signs Vital signs: Vital Signs Temp 98.2 F 08/05/22 08:00 Pulse 83 08/05/22 11:11 Resp 18 08/05/22 08:00 BP 117/62 08/05/22 08:00 Pulse Ox 94 L 08/05/22 08:00 FiO2 - Exam GENERAL DESCRIPTION: An elderly male lying in bed in no distress RESPIRATORY SYSTEM: Unlabored breathing , decreased breath sounds at bases HEART: S1 S2 regular rate and rhythm , ABDOMEN: Soft , no tenderness EXTREMITIES: Left big toe plantar wound with no significant slough tissue some surrounding swelling redness or drainage - Labs CBC & Chem 7: 08/04/22 07:59 08/04/22 07:59 Assessment and Plan (1) Diabetic infection of left foot Status: Acute Code(s): E11.628 - TYPE 2 DIABETES MELLITUS WITH OTHER SKIN COMPLICATIONS; L08.9 - LOCAL INFECTION OF THE SKIN AND SUBCUTANEOUS TISSUE, UNSP SNOMED Code(s): 94544895 Plan: 1patient with left big toe infected plantar callus and secondary cellulitis and patient with underlying diabetes mellitus and more likely due to polymicrobial aneesh usually associated with diabetic foot infection. 2patient is status post vascular surgery evaluation and debridement of the infected callus and deep culture completed on 08/01/2022. 3patient has shown some clinical improvement and cultures are currently growing coagulase negative staph, patient had shown clinical improvement on Unasyn which will be continued 6 weeks and a close outpatient follow-up discussed with the [employer] working on discharge Time with Patient: Less than 30
== END 2022-08-05 16:06 | DRG 622 ==
LOC: EC 02:24 → 3SCARD 04:57
PROVIDERS: ADMIT Hospitalist; ATTEND Hospitalist
PROC: 0JBR0ZZ Excision of Left Foot Subcutaneous Tissue and Fascia, Open Approach (ICD-10-PCS; principal; 2022-08-01 10:00)
PROC: 02HV33Z Insertion of Infusion Device into Superior Vena Cava, Percutaneous Approach (ICD-10-PCS; 2022-08-04)
DX: E11.628 Type 2 diabetes mellitus with other skin complications (principal); I21.A1 Myocardial infarction type 2; E87.1 Hypo-osmolality and hyponatremia; L03.116 Cellulitis of left lower limb; M48.56XA Collapsed vertebra, not elsewhere classified, lumbar region, initial encounter for fracture; N17.9 Acute kidney failure, unspecified; E11.42 Type 2 diabetes mellitus with diabetic polyneuropathy; D69.6 Thrombocytopenia, unspecified; E78.5 Hyperlipidemia, unspecified; E86.0 Dehydration; E86.1 Hypovolemia; G25.3 Myoclonus; I08.3 Combined rheumatic disorders of mitral, aortic and tricuspid valves; I15.1 Hypertension secondary to other renal disorders; L84 Corns and callosities; I95.9 Hypotension, unspecified; R74.01 Elevation of levels of liver transaminase levels; M51.36 Other intervertebral disc degeneration, lumbar region; M47.816 Spondylosis without myelopathy or radiculopathy, lumbar region; Z20.822 Contact with and (suspected) exposure to COVID-19; Z28.82 Immunization not carried out because of caregiver refusal; Z28.310 Unvaccinated for COVID-19; Z71.3 Dietary counseling and surveillance; R26.9 Unspecified abnormalities of gait and mobility; Z79.4 Long term (current) use of insulin; Z79.82 Long term (current) use of aspirin; Z79.84 Long term (current) use of oral hypoglycemic drugs; Z79.899 Other long term (current) drug therapy
CPT/HCPCS: 36415; 36573; 71046; 71275; 72131; 76705; 80048; 80053; 80061; 80076; 81001; 82085; 82550; 82607; 82746; 83036; 83605; 83735; 84100; 84145; 84443; 84484; 85025; 85379; 85610; 85652; 85730; 86140; 87040; 87070; 87075; 87205; 87502; 87634; 87635; 93005; 93306; 93970; 96361; 96365; 96366; 96372; 96375; 99285

== ENCOUNTER → 2023-02-11 | Outpatient (CLI) | payer MEDICARE, BC ==
[2023-02-11 16:04] LABS: HCT 48.3 % (39.6-50.0); MCH 28.7 pg (27.0-32.0); MCHC 33.1 g/dL (32.0-37.0); MCV 86.6 fL (80.0-97.0); Mean Platelet Volume 10.1 fL (9.5-12.2); NRBC Per 100 WBC 0 /100 WBCS (0.0-0.0); Platelet Count 152 X 10*3/uL (140-440); RBC 5.58 X 10*6/uL (4.40-5.60); RDW 12.7 % (11.5-14.5)
[2023-02-11 16:17] LABS: ALT 47 U/L (10-49); AST 25 U/L (14-35); African American GFR (CKD) 95.1 (60.0-200.0); Albumin 4.4 g/dL (3.8-4.9); Alkaline Phosphatase 84 U/L (41-126); Blood Urea Nitrogen 20.7 mg/dL (9.0-27.0); Calcium 9.3 mg/dL (8.7-10.3); Carbon Dioxide 23.5 mmol/L (20.0-27.5); Chloride 105 mmol/L (96-109); Chol/HDL Ratio 2.85 Ratio; Globulin 2.2 g/dL (1.6-3.3); Glucose 124 mg/dL (70-110); LDL Cholesterol,Calculated 87.7 mg/dL (0.0-131.0); Non-African American GFR(CKD) 82.1 (60.0-200.0); Potassium 4.7 mmol/L (3.5-5.5); Sodium 140 mmol/L (135-145); Total Protein 6.6 g/dL (6.2-8.2)
== END | disposition home or self-care (01) ==
LOC: LABWHC1 10:05
PROVIDERS: ATTEND Physician Assistant Medical
DX: Z12.5 Encounter for screening for malignant neoplasm of prostate (principal); E11.42 Type 2 diabetes mellitus with diabetic polyneuropathy; E78.2 Mixed hyperlipidemia
CPT/HCPCS: 36415; 80053; 80061; 83036; 84153; 85027

== ENCOUNTER → 2023-07-02 | Outpatient (CLI) | payer MEDICARE, BC ==
[2023-07-02 22:10] LABS: Basophils # (A) 0.02 X 10*3/uL (0.00-0.10); Basophils % (A) 0.3 %; Eosinophils # (A) 0.16 X 10*3/uL (0.04-0.35); Eosinophils % (A) 2.7 %; Lymphocytes % (A) 23.4 %; MCH 28.4 pg (27.0-32.0); MCHC 32.7 d/dL (32.0-37.0); MCV 86.9 FL (80.0-97.0); Mean Platelet Volume 10.8 FL (9.5-12.2); Monocytes # (A) 0.46 X 10*3/uL (0.20-1.00); Monocytes % (A) 7.7 %; NRBC Per 100 WBC 0 X 10*3/uL (0.00-0.01); Neutrophils # (A) 3.92 X 10*3/uL (1.80-7.70); Neutrophils % (A) 65.4 %; Platelet Count 166 X 10*3/uL (140-440); RBC 5.64 X 10*6/uL (4.40-5.60); RDW 12.4 % (11.5-14.5); WBC 5.99 X 10*3/uL (4.50-10.00)
[2023-07-02 22:52] LABS: ALT 33 U/L (10-49); AST 23 U/L (14-35); Albumin 4.4 d/dL (3.8-4.9); Albumin/Globulin Ratio 1.91 Ratio (1.60-3.17); Alkaline Phosphatase 89 U/L (41-126); BUN/Creat Ratio 18.78 Ratio (12.00-20.00); Blood Urea Nitrogen 16.9 mg/dL (9.0-27.0); Calcium 9.6 mg/dL (8.7-10.3); Carbon Dioxide 24.7 mmol/L (21.6-31.8); Chloride 106 mmol/L (96-109); Chol/HDL Ratio 2.35 Ratio; Globulin 2.3 d/dL (1.6-3.3); Glucose 166 mg/dL (70-110); LDL Cholesterol,Calculated 64.3 mg/dL (0.0-131.0); Potassium 5.1 mmol/L (3.5-5.5); Sodium 141 mmol/L (135-145); T4, Free (Free Thyroxine) 1.13 ng/dL (0.80-1.80); Total Bilirubin 0.9 mg/dL (0.3-1.2); Total Protein 6.7 d/dL (6.2-8.2)
== END | disposition home or self-care (01) ==
LOC: LABWHC1 12:25
PROVIDERS: ATTEND Family Medicine
DX: E11.42 Type 2 diabetes mellitus with diabetic polyneuropathy (principal)
CPT/HCPCS: 36415; 80053; 80061; 83036; 84439; 84443; 85025

== ENCOUNTER → 2025-03-22 | Outpatient (CLI) | payer MEDICARE ==
[2025-03-22 19:46] LABS: ALT 21 U/L (10-49); AST 20 U/L (14-35); Albumin 4.5 g/dL (3.8-4.9); Albumin/Globulin Ratio 2.37 Ratio (1.60-3.17); Alkaline Phosphatase 84 U/L (41-126); Anion Gap 11.60 mmol/L (4.00-12.00); BUN/Creat Ratio 20.11 Ratio (12.00-20.00); Blood Urea Nitrogen 18.1 mg/dL (9.0-27.0); Calcium 9.1 mg/dL (8.7-10.3); Carbon Dioxide 24.4 mmol/L (21.6-31.8); Chloride 105 mmol/L (96-109); Cholesterol 141.00 mg/dL (0.00-200.00); Globulin 1.9 g/dL (1.6-3.3); Glucose 113 mg/dL (70-110); HDL Cholesterol 57.80 mg/dL (40.00-60.00); LDL Cholesterol,Calculated 69.7 mg/dL (0.0-131.0); Potassium 5.0 mmol/L (3.5-5.5); Sodium 141 mmol/L (135-145); Total Protein 6.4 g/dL (6.2-8.2); Triglycerides 67.30 mg/dL (0.00-149.00); VLDL Calculation 13.46 mg/dL (5.00-40.00)
== END | disposition home or self-care (01) ==
LOC: LABWHC1 12:26
PROVIDERS: ATTEND Nurse Practitioner Family
DX: E11.65 Type 2 diabetes mellitus with hyperglycemia (principal); R97.20 Elevated prostate specific antigen [PSA]
CPT/HCPCS: 36415; 80053; 80061; 82043; 82570; 83036; 84153; 85025

== ENCOUNTER → 2025-04-04 | Outpatient (CLI) | payer MEDICARE ==
[2025-04-04 16:04] LABS: Basophils # (A) 0.03 X 10*3/uL (0.00-0.10); Basophils % (A) 0.5 %; Eosinophils # (A) 0.19 X 10*3/uL (0.04-0.35); Eosinophils % (A) 2.9 %; HCT 49.5 % (39.6-50.0); HGB 16.0 g/dL (13.0-17.0); Immature Grans, Automated 0.30 %; Lymphocytes # (A) 1.53 X 10*3/uL (0.90-5.00); Lymphocytes % (A) 23.2 %; MCH 27.9 pg (27.0-32.0); MCHC 32.3 g/dL (32.0-37.0); MCV 86.2 FL (80.0-97.0); Monocytes # (A) 0.76 X 10*3/uL (0.20-1.00); Monocytes % (A) 11.5 %; NRBC Per 100 WBC 0 X 10*3/uL (0.00-0.01); Neutrophils # (A) 4.07 X 10*3/uL (1.80-7.70); Neutrophils % (A) 61.6 %; Platelet Count 183 X 10*3/uL (140-440); RBC 5.74 X 10*6/uL (4.40-5.60); RDW 12.3 % (11.5-14.5); WBC 6.60 X 10*3/uL (4.50-10.00)
== END | disposition home or self-care (01) ==
LOC: LABWHC1 08:28
PROVIDERS: ATTEND Family Medicine
DX: E11.65 Type 2 diabetes mellitus with hyperglycemia (principal)
CPT/HCPCS: 36415; 85025